=== PATIENT | male | born 1960 | race Caucasian/White ===

== ENCOUNTER → 2019-11-14 14:57 | Outpatient (BNVA) | payer MEDICAID, SELFPAY | PROVIDERS: Family Provider Family Medicine; PCP Family Medicine; Visit Provider Orthopaedic Surgery | DX: M25.512 Pain in left shoulder (principal); M19.012 Primary osteoarthritis, left shoulder | CPT/HCPCS: 73030 ==

== ENCOUNTER → 2020-04-01 12:46 | Outpatient (BNVA) | payer MEDICAID, SELFPAY | PROVIDERS: Family Provider Family Medicine; PCP Family Medicine; Visit Provider Internal Medicine | DX: E03.9 Hypothyroidism, unspecified (principal); E10.9 Type 1 diabetes mellitus without complications; E16.0 Drug-induced hypoglycemia without coma; T38.3X5A Adverse effect of insulin and oral hypoglycemic [antidiabetic] drugs, initial encounter; E66.01 Morbid (severe) obesity due to excess calories; Z68.41 Body mass index [BMI] 40.0-44.9, adult; E78.2 Mixed hyperlipidemia; I10 Essential (primary) hypertension | CPT/HCPCS: 99204 ==

== ENCOUNTER → 2020-08-20 11:42 | Outpatient (BNVA) | payer MEDICAID, SELFPAY | PROVIDERS: Family Provider Family Medicine; PCP Family Medicine; Visit Provider Podiatrist Foot & Ankle Surgery | DX: M25.572 Pain in left ankle and joints of left foot (principal); E11.621 Type 2 diabetes mellitus with foot ulcer; L97.522 Non-pressure chronic ulcer of other part of left foot with fat layer exposed; E11.42 Type 2 diabetes mellitus with diabetic polyneuropathy | CPT/HCPCS: 73630 ==

== ENCOUNTER 2020-08-27 09:42 | Outpatient (CLI) | payer MEDICAID, SELFPAY | END 2020-08-27 09:43 | disposition home or self-care (01) | LOC: WOUND 09:45 | PROVIDERS: Family Provider Family Medicine; PCP Family Medicine; Visit Provider Thoracic Surgery (Cardiothoracic Vascular Surgery) | DX: E11.622 Type 2 diabetes mellitus with other skin ulcer (principal); L97.811 Non-pressure chronic ulcer of other part of right lower leg limited to breakdown of skin; E11.621 Type 2 diabetes mellitus with foot ulcer; L97.522 Non-pressure chronic ulcer of other part of left foot with fat layer exposed | CPT/HCPCS: 11042; 97597; 99203 ==

== ENCOUNTER 2020-08-30 15:10 | Outpatient (CLI) | payer MEDICAID, SELFPAY | END 2020-08-30 15:11 | disposition home or self-care (01) | LOC: WOUND 15:11 | PROVIDERS: Family Provider Family Medicine; PCP Family Medicine; Visit Provider Nurse Practitioner Family | DX: E11.622 Type 2 diabetes mellitus with other skin ulcer (principal); L97.819 Non-pressure chronic ulcer of other part of right lower leg with unspecified severity | CPT/HCPCS: 29581 ==

== ENCOUNTER 2020-09-03 10:23 | Outpatient (CLI) | payer MEDICAID, SELFPAY | END 2020-09-03 10:24 | disposition home or self-care (01) | LOC: WOUND 10:23 | PROVIDERS: Family Provider Family Medicine; PCP Family Medicine; Visit Provider Thoracic Surgery (Cardiothoracic Vascular Surgery) | DX: E11.622 Type 2 diabetes mellitus with other skin ulcer (principal); L97.812 Non-pressure chronic ulcer of other part of right lower leg with fat layer exposed; E11.621 Type 2 diabetes mellitus with foot ulcer; L97.522 Non-pressure chronic ulcer of other part of left foot with fat layer exposed | CPT/HCPCS: 11042 ==

== ENCOUNTER 2020-09-13 10:19 | Outpatient (CLI) | payer MEDICAID, SELFPAY | END 2020-09-13 10:20 | disposition home or self-care (01) | LOC: WOUND 10:25 | PROVIDERS: Family Provider Family Medicine; PCP Family Medicine; Visit Provider Surgery | DX: E11.622 Type 2 diabetes mellitus with other skin ulcer (principal); L97.812 Non-pressure chronic ulcer of other part of right lower leg with fat layer exposed; E11.621 Type 2 diabetes mellitus with foot ulcer; L97.522 Non-pressure chronic ulcer of other part of left foot with fat layer exposed | CPT/HCPCS: 11042 ==

== ENCOUNTER 2020-09-17 13:41 | Outpatient (CLI) | payer MEDICAID, SELFPAY | END 2020-09-17 13:42 | disposition home or self-care (01) | LOC: WOUND 13:42 | PROVIDERS: Family Provider Family Medicine; PCP Family Medicine; Visit Provider Thoracic Surgery (Cardiothoracic Vascular Surgery) | DX: E11.622 Type 2 diabetes mellitus with other skin ulcer (principal); L97.812 Non-pressure chronic ulcer of other part of right lower leg with fat layer exposed; E11.621 Type 2 diabetes mellitus with foot ulcer; L97.521 Non-pressure chronic ulcer of other part of left foot limited to breakdown of skin | CPT/HCPCS: 11042; 97597 ==

== ENCOUNTER 2020-09-24 10:38 | Outpatient (CLI) | payer MEDICAID, SELFPAY | END 2020-09-24 10:39 | disposition home or self-care (01) | LOC: WOUND 10:39 | PROVIDERS: Family Provider Family Medicine; PCP Family Medicine; Visit Provider Nurse Practitioner Family | DX: E11.622 Type 2 diabetes mellitus with other skin ulcer (principal); L97.812 Non-pressure chronic ulcer of other part of right lower leg with fat layer exposed; E11.621 Type 2 diabetes mellitus with foot ulcer; L97.522 Non-pressure chronic ulcer of other part of left foot with fat layer exposed | CPT/HCPCS: 11042 ==

== ENCOUNTER 2020-10-01 10:03 | Outpatient (CLI) | payer MEDICAID, SELFPAY | END 2020-10-01 10:04 | disposition home or self-care (01) | LOC: WOUND 10:04 | PROVIDERS: Family Provider Family Medicine; PCP Family Medicine; Visit Provider Thoracic Surgery (Cardiothoracic Vascular Surgery) | DX: E11.622 Type 2 diabetes mellitus with other skin ulcer (principal); L97.811 Non-pressure chronic ulcer of other part of right lower leg limited to breakdown of skin | CPT/HCPCS: 97597 ==

== ENCOUNTER 2020-10-08 09:08 | Outpatient (CLI) | payer MEDICAID, SELFPAY | END 2020-10-08 09:09 | disposition home or self-care (01) | LOC: WOUND 09:08 | PROVIDERS: Family Provider Family Medicine; PCP Family Medicine; Visit Provider Emergency Medicine | DX: E11.622 Type 2 diabetes mellitus with other skin ulcer (principal); L97.812 Non-pressure chronic ulcer of other part of right lower leg with fat layer exposed | CPT/HCPCS: 11042 ==

== ENCOUNTER 2020-10-15 09:37 | Outpatient (CLI) | payer MEDICAID, SELFPAY | END 2020-10-15 09:38 | disposition home or self-care (01) | LOC: WOUND 09:38 | PROVIDERS: Family Provider Family Medicine; PCP Family Medicine; Visit Provider Thoracic Surgery (Cardiothoracic Vascular Surgery) | DX: E11.622 Type 2 diabetes mellitus with other skin ulcer (principal); L97.811 Non-pressure chronic ulcer of other part of right lower leg limited to breakdown of skin | CPT/HCPCS: 97597 ==

== ENCOUNTER 2020-10-22 08:45 | Outpatient (CLI) | payer MEDICAID, SELFPAY | END 2020-10-22 08:46 | disposition home or self-care (01) | LOC: WOUND 08:46 | PROVIDERS: Family Provider Family Medicine; PCP Family Medicine; Visit Provider Nurse Practitioner Family | DX: I96 Gangrene, not elsewhere classified (principal); E11.622 Type 2 diabetes mellitus with other skin ulcer; L97.812 Non-pressure chronic ulcer of other part of right lower leg with fat layer exposed | CPT/HCPCS: 11042 ==

== ENCOUNTER 2020-10-29 08:42 | Outpatient (CLI) | payer MEDICAID, SELFPAY | END 2020-10-29 08:43 | disposition home or self-care (01) | LOC: WOUND 08:42 | PROVIDERS: Family Provider Family Medicine; PCP Family Medicine; Visit Provider Thoracic Surgery (Cardiothoracic Vascular Surgery) | DX: I96 Gangrene, not elsewhere classified (principal); E11.622 Type 2 diabetes mellitus with other skin ulcer; L97.211 Non-pressure chronic ulcer of right calf limited to breakdown of skin | CPT/HCPCS: 97597 ==

== ENCOUNTER 2020-11-05 09:36 | Outpatient (CLI) | payer MEDICAID, SELFPAY | END 2020-11-05 09:37 | disposition home or self-care (01) | LOC: WOUND 09:37 | PROVIDERS: Family Provider Family Medicine; PCP Family Medicine; Visit Provider Emergency Medicine | DX: E11.622 Type 2 diabetes mellitus with other skin ulcer (principal); L97.812 Non-pressure chronic ulcer of other part of right lower leg with fat layer exposed | CPT/HCPCS: 11042; 87070; 87077; 87176; 87186; 87205; G0463 ==

== ENCOUNTER 2020-11-12 10:04 | Outpatient (CLI) | payer MEDICAID, SELFPAY | END 2020-11-12 10:05 | disposition home or self-care (01) | LOC: WOUND 10:04 | PROVIDERS: Family Provider Family Medicine; PCP Family Medicine; Visit Provider Thoracic Surgery (Cardiothoracic Vascular Surgery) | DX: E11.622 Type 2 diabetes mellitus with other skin ulcer (principal); L97.811 Non-pressure chronic ulcer of other part of right lower leg limited to breakdown of skin | CPT/HCPCS: 97597; 97598 ==

== ENCOUNTER 2020-11-15 14:25 | Outpatient (CLI) | payer MEDICAID, SELFPAY ==
[2020-11-15 15:22] LABS: Blood Urea Nitrogen 11 mg/dL (6-20); Calcium 9.1 mg/dL (8.5-10.5); Carbon Dioxide 27 mmol/L (22-29); Chloride 99 mmol/L (98-107); Glomerular Filtration Rate 86.4 mL/min (90-130); Glucose 217 mg/dL (65-115); Osmolality Calculated 292 mOsm/kg (285-295); Sodium 138 mmol/L (136-145)
== END 2020-11-15 14:26 | disposition home or self-care (01) ==
LOC: LAB 14:29
PROVIDERS: PCP Family Medicine; Visit Provider Emergency Medicine
DX: E11.622 Type 2 diabetes mellitus with other skin ulcer (principal)
CPT/HCPCS: 80048

== ENCOUNTER 2020-11-19 09:40 | Outpatient (CLI) | payer MEDICAID, SELFPAY | END 2020-11-19 09:41 | disposition home or self-care (01) | LOC: WOUND 09:42 | PROVIDERS: PCP Family Medicine; Visit Provider Thoracic Surgery (Cardiothoracic Vascular Surgery) | DX: E11.622 Type 2 diabetes mellitus with other skin ulcer (principal); L97.811 Non-pressure chronic ulcer of other part of right lower leg limited to breakdown of skin | CPT/HCPCS: 97597; 97598 ==

== ENCOUNTER 2020-11-21 14:54 | Outpatient (CLI) | payer MEDICAID, SELFPAY ==
[2020-11-21 16:07] LABS: Anion Gap 16.9 (5-19); Blood Urea Nitrogen 10 mg/dL (6-20); Calcium 8.9 mg/dL (8.5-10.5); Carbon Dioxide 26 mmol/L (22-29); Chloride 99 mmol/L (98-107); Glomerular Filtration Rate 76.5 mL/min (90-130); Glucose 101 mg/dL (65-115); Osmolality Calculated 285 mOsm/kg (285-295); Potassium 3.9 mmol/L (3.5-5.1); Sodium 138 mmol/L (136-145)
== END 2020-11-21 14:55 | disposition home or self-care (01) ==
LOC: LAB 14:58
PROVIDERS: PCP Family Medicine; Visit Provider Emergency Medicine
DX: E11.622 Type 2 diabetes mellitus with other skin ulcer (principal)
CPT/HCPCS: 36415; 80048

== ENCOUNTER 2020-11-26 10:10 | Outpatient (CLI) | payer MEDICAID, SELFPAY | END 2020-11-26 10:11 | disposition home or self-care (01) | LOC: WOUND 10:10 | PROVIDERS: PCP Family Medicine; Visit Provider Thoracic Surgery (Cardiothoracic Vascular Surgery) | DX: E11.622 Type 2 diabetes mellitus with other skin ulcer (principal); L97.811 Non-pressure chronic ulcer of other part of right lower leg limited to breakdown of skin | CPT/HCPCS: 97597 ==

== ENCOUNTER 2020-12-03 09:38 | Outpatient (CLI) | payer MEDICAID, SELFPAY | END 2020-12-03 09:39 | disposition home or self-care (01) | LOC: WOUND 09:39 | PROVIDERS: PCP Family Medicine; Visit Provider Thoracic Surgery (Cardiothoracic Vascular Surgery) | DX: E11.622 Type 2 diabetes mellitus with other skin ulcer (principal); L97.812 Non-pressure chronic ulcer of other part of right lower leg with fat layer exposed | CPT/HCPCS: 11042 ==

== ENCOUNTER 2020-12-10 10:06 | Outpatient (CLI) | payer MEDICAID, SELFPAY | END 2020-12-10 10:07 | disposition home or self-care (01) | LOC: WOUND 10:07 | PROVIDERS: PCP Family Medicine; Visit Provider Thoracic Surgery (Cardiothoracic Vascular Surgery) | DX: E10.622 Type 1 diabetes mellitus with other skin ulcer (principal); L97.812 Non-pressure chronic ulcer of other part of right lower leg with fat layer exposed | CPT/HCPCS: 15271; A6250; Q4110 ==

== ENCOUNTER 2020-12-13 12:24 | Outpatient (CLI) | payer MEDICAID, SELFPAY ==
--- NOTE | 2020-12-13 12:28 | USCV_ITS ---
Case Morin Age: 60 Gender: M : 1960 Exam Date: 12/13/2020 13:07 Ordering Phys: Raul Ellington MD (Andy) ([email or web address]) Technologist: Karissa Lloyd Exam Location: [facility] – [place], [place] Indication: FOOT ULCER, TYPE 1 DM Risk Factors: Previous Vascular Surgery: RIGHT LEFT BP: / BP: 120.0/ 0 Waveform Velocity (cm/s) Velocity (cm/s) Waveform Triphasic 126.3 Iliac Prox 81.5 Triphasic Triphasic 166.6 Iliac Mid 109.5 Triphasic Triphasic 197.3 Iliac Distal 107.8 Triphasic Triphasic 123.4 MVA REACTOR OPERATOR HEAD 167.5 Triphasic Triphasic 143.3 SFA Prox 126.2 Triphasic Biphasic 161.7 SFA Mid 152.5 Triphasic Biphasic 173.5 SFA Dist 133.0 Triphasic Triphasic 55.9 POP 113.4 Biphasic AGRONOMY SPECIALIST 93.7 Biphasic DPA 54.9 Biphasic LAZARO 1.2 FINDINGS Unable to image right lover leg due to open wound and bandage TDS due to large body habitus Normal resting LAZARO on the left side of 1.2 Multiphasic Doppler waveforms bilaterally CONCLUSIONS Normal resting LAZARO on the left side The infrapopliteal vessels on the right side were not examined LAZARO on the right side could not be obtained because of the open wound Multiphasic waveforms suggesting no significant arterial obstruction bilaterally Dr Eleno Islas MD FAC (Electronically Signed) Final Date: 13 December 2020 15:28 S
== END 2020-12-13 12:25 | disposition home or self-care (01) ==
LOC: RAD 12:25
PROVIDERS: PCP Family Medicine; Visit Provider Thoracic Surgery (Cardiothoracic Vascular Surgery)
DX: E10.621 Type 1 diabetes mellitus with foot ulcer (principal)
CPT/HCPCS: 93925

== ENCOUNTER 2020-12-13 13:34 | Outpatient (CLI) | payer MEDICAID, SELFPAY | END 2020-12-13 13:35 | disposition home or self-care (01) | LOC: WOUND 13:35 | PROVIDERS: PCP Family Medicine; Visit Provider Nurse Practitioner Family | DX: E11.622 Type 2 diabetes mellitus with other skin ulcer (principal); L97.812 Non-pressure chronic ulcer of other part of right lower leg with fat layer exposed | CPT/HCPCS: 29581; A6252 ==

== ENCOUNTER 2020-12-16 15:10 | Outpatient (CLI) | payer MEDICAID, SELFPAY ==
--- NOTE | 2020-12-16 15:14 | USCV_ITS ---
Case Morin Age: 60 Gender: M : 1960 Exam Date: 12/16/2020 15:31 Ordering Phys: Raul Ellington MD (Andy) ([email or web address]) Technologist: Karissa lLoyd Exam Location: [facility] – [place] Indication: HISTORY: Lower extremity swelling. Lower extremity pain. PROCEDURES: Bilateral duplex Venous Insufficiency study of the Deep and Superficial systems was carried out according to normal protocol with the patient in supine positon for deep system and dependent position for the superficial system. An evaluation for venous insufficiency was also completed. FINDINGS: No significant venous reflux were noted in the deep veins. Significant reflux of greater than 500 ms were noted in the saphenofemoral junction, proximal and mid greater saphenous vein segments on the left side CONCLUSIONS 1. No evidence of any deep vein thrombosis bilaterally. 2. Significant venous reflux of greater than 500 ms were noted at the left saphenofemoral junction, proximal and mid greater saphenous vein segments. The venous segments where measuring 0.53, 0.61 and 0.22 cm at these levels. The segments were greater than 1 cm deep from the surface. No other significant reflux on the left side. 3. On the right side, significant venous reflux of greater than 500 ms was noted at the saphenofemoral junction. [id number] Dr Eleno Islas MD [facility] (Electronically Signed) Final Date: 17 December 2020 18:43 S
== END 2020-12-16 15:11 | disposition home or self-care (01) ==
LOC: RAD 15:13
PROVIDERS: PCP Family Medicine; Visit Provider Thoracic Surgery (Cardiothoracic Vascular Surgery)
DX: E11.621 Type 2 diabetes mellitus with foot ulcer (principal); M79.89 Other specified soft tissue disorders; M79.604 Pain in right leg; M79.605 Pain in left leg; I87.2 Venous insufficiency (chronic) (peripheral)
CPT/HCPCS: 93970

== ENCOUNTER 2020-12-17 09:15 | Outpatient (CLI) | payer MEDICAID, SELFPAY | END 2020-12-17 09:16 | disposition home or self-care (01) | LOC: WOUND 09:16 | PROVIDERS: PCP Family Medicine; Visit Provider Thoracic Surgery (Cardiothoracic Vascular Surgery) | DX: E10.622 Type 1 diabetes mellitus with other skin ulcer (principal); L97.812 Non-pressure chronic ulcer of other part of right lower leg with fat layer exposed | CPT/HCPCS: 11042 ==

== ENCOUNTER 2020-12-20 13:05 | Outpatient (CLI) | payer MEDICAID, SELFPAY | END 2020-12-20 13:06 | disposition home or self-care (01) | LOC: WOUND 13:05 | PROVIDERS: PCP Family Medicine; Visit Provider Surgery | DX: E11.622 Type 2 diabetes mellitus with other skin ulcer (principal); L97.812 Non-pressure chronic ulcer of other part of right lower leg with fat layer exposed | CPT/HCPCS: 29581 ==

== ENCOUNTER 2020-12-24 09:30 | Outpatient (CLI) | payer MEDICAID, SELFPAY | END 2020-12-24 09:31 | disposition home or self-care (01) | LOC: WOUND 09:30 | PROVIDERS: PCP Family Medicine; Visit Provider Thoracic Surgery (Cardiothoracic Vascular Surgery) | DX: E11.622 Type 2 diabetes mellitus with other skin ulcer (principal); L97.812 Non-pressure chronic ulcer of other part of right lower leg with fat layer exposed | CPT/HCPCS: 11042; A6252 ==

== ENCOUNTER 2020-12-27 14:45 | Outpatient (CLI) | payer MEDICAID, SELFPAY | END 2020-12-27 14:46 | disposition home or self-care (01) | LOC: WOUND 14:45 | PROVIDERS: PCP Family Medicine; Visit Provider Surgery | DX: E11.622 Type 2 diabetes mellitus with other skin ulcer (principal); L97.812 Non-pressure chronic ulcer of other part of right lower leg with fat layer exposed | CPT/HCPCS: 29581; A6252 ==

== ENCOUNTER 2020-12-31 09:26 | Outpatient (CLI) | payer MEDICAID, SELFPAY | END 2020-12-31 09:27 | disposition home or self-care (01) | LOC: WOUND 09:27 | PROVIDERS: PCP Family Medicine; Visit Provider Thoracic Surgery (Cardiothoracic Vascular Surgery) | DX: E10.622 Type 1 diabetes mellitus with other skin ulcer (principal); L97.812 Non-pressure chronic ulcer of other part of right lower leg with fat layer exposed; I10 Essential (primary) hypertension | CPT/HCPCS: 11042 ==

== ENCOUNTER 2021-01-03 14:34 | Outpatient (CLI) | payer MEDICAID, SELFPAY | END 2021-01-03 14:35 | disposition home or self-care (01) | LOC: WOUND 14:35 | PROVIDERS: PCP Family Medicine; Visit Provider Surgery | DX: E11.622 Type 2 diabetes mellitus with other skin ulcer (principal); L97.812 Non-pressure chronic ulcer of other part of right lower leg with fat layer exposed | CPT/HCPCS: 29581; A6252 ==

== ENCOUNTER 2021-01-07 08:50 | Outpatient (CLI) | payer MEDICAID, SELFPAY | END 2021-01-07 08:51 | disposition home or self-care (01) | LOC: WOUND 08:51 | PROVIDERS: PCP Family Medicine; Visit Provider Nurse Practitioner Family | DX: E11.622 Type 2 diabetes mellitus with other skin ulcer (principal); L97.812 Non-pressure chronic ulcer of other part of right lower leg with fat layer exposed | CPT/HCPCS: 11042; 87070; 87077; 87176; 87186; 87205; A6252 ==

== ENCOUNTER 2021-01-10 09:35 | Outpatient (CLI) | payer MEDICAID, SELFPAY | END 2021-01-10 09:36 | disposition home or self-care (01) | LOC: WOUND 09:35 | PROVIDERS: PCP Family Medicine; Visit Provider Nurse Practitioner Family | DX: E11.622 Type 2 diabetes mellitus with other skin ulcer (principal); L97.812 Non-pressure chronic ulcer of other part of right lower leg with fat layer exposed | CPT/HCPCS: 29581; A6252 ==

== ENCOUNTER 2021-01-14 08:54 | Outpatient (CLI) | payer MEDICAID, SELFPAY | END 2021-01-14 08:55 | disposition home or self-care (01) | LOC: WOUND 08:55 | PROVIDERS: PCP Family Medicine; Visit Provider Emergency Medicine | DX: E10.622 Type 1 diabetes mellitus with other skin ulcer (principal); L97.812 Non-pressure chronic ulcer of other part of right lower leg with fat layer exposed; I10 Essential (primary) hypertension | CPT/HCPCS: 11042; A6252 ==

== ENCOUNTER → 2021-01-16 14:08 | Outpatient (BNVA) | payer MEDICAID, SELFPAY | PROVIDERS: PCP Family Medicine; Visit Provider Internal Medicine | DX: E10.9 Type 1 diabetes mellitus without complications (principal); E16.0 Drug-induced hypoglycemia without coma; T38.3X5A Adverse effect of insulin and oral hypoglycemic [antidiabetic] drugs, initial encounter; E03.9 Hypothyroidism, unspecified; E78.2 Mixed hyperlipidemia; E66.01 Morbid (severe) obesity due to excess calories; Z68.41 Body mass index [BMI] 40.0-44.9, adult; Z79.4 Long term (current) use of insulin | CPT/HCPCS: 99214 ==

== ENCOUNTER 2021-01-17 14:04 | Outpatient (CLI) | payer MEDICAID, SELFPAY | END 2021-01-17 14:05 | disposition home or self-care (01) | LOC: WOUND 14:04 | PROVIDERS: PCP Family Medicine; Visit Provider Surgery | DX: E11.622 Type 2 diabetes mellitus with other skin ulcer (principal); L97.812 Non-pressure chronic ulcer of other part of right lower leg with fat layer exposed | CPT/HCPCS: 29581; A6252 ==

== ENCOUNTER 2021-01-21 08:50 | Outpatient (CLI) | payer MEDICAID, SELFPAY | END 2021-01-21 08:51 | disposition home or self-care (01) | LOC: WOUND 08:51 | PROVIDERS: PCP Family Medicine; Visit Provider Nurse Practitioner Family | DX: E11.622 Type 2 diabetes mellitus with other skin ulcer (principal); L97.812 Non-pressure chronic ulcer of other part of right lower leg with fat layer exposed; I10 Essential (primary) hypertension | CPT/HCPCS: 11042; A6252 ==

== ENCOUNTER 2021-01-28 09:16 | Outpatient (CLI) | payer MEDICAID, SELFPAY | END 2021-01-28 09:17 | disposition home or self-care (01) | LOC: WOUND 09:16 | PROVIDERS: PCP Family Medicine; Visit Provider Nurse Practitioner Family | DX: E10.622 Type 1 diabetes mellitus with other skin ulcer (principal); L97.812 Non-pressure chronic ulcer of other part of right lower leg with fat layer exposed; I10 Essential (primary) hypertension | CPT/HCPCS: 11042 ==

== ENCOUNTER 2021-02-04 10:52 | Outpatient (CLI) | payer MEDICAID, SELFPAY | END 2021-02-04 10:53 | disposition home or self-care (01) | LOC: WOUND 10:54 | PROVIDERS: PCP Family Medicine; Visit Provider Thoracic Surgery (Cardiothoracic Vascular Surgery) | DX: E10.622 Type 1 diabetes mellitus with other skin ulcer (principal); L97.811 Non-pressure chronic ulcer of other part of right lower leg limited to breakdown of skin | CPT/HCPCS: 97597 ==

== ENCOUNTER 2021-02-11 13:36 | Outpatient (CLI) | payer MEDICAID, SELFPAY | END 2021-02-11 13:37 | disposition home or self-care (01) | LOC: WOUND 13:39 | PROVIDERS: PCP Family Medicine; Visit Provider Thoracic Surgery (Cardiothoracic Vascular Surgery) | DX: E11.622 Type 2 diabetes mellitus with other skin ulcer (principal); L97.812 Non-pressure chronic ulcer of other part of right lower leg with fat layer exposed; I10 Essential (primary) hypertension | CPT/HCPCS: 11042; A6252 ==

== ENCOUNTER 2021-02-18 13:48 | Outpatient (CLI) | payer MEDICAID, SELFPAY | END 2021-02-18 13:49 | disposition home or self-care (01) | LOC: WOUND 13:49 | PROVIDERS: PCP Family Medicine; Visit Provider Nurse Practitioner Family | DX: E10.622 Type 1 diabetes mellitus with other skin ulcer (principal); L97.812 Non-pressure chronic ulcer of other part of right lower leg with fat layer exposed; I10 Essential (primary) hypertension | CPT/HCPCS: 11042; A6251 ==

== ENCOUNTER 2021-02-25 13:48 | Outpatient (CLI) | payer MEDICAID, SELFPAY | END 2021-02-25 13:49 | disposition home or self-care (01) | LOC: WOUND 13:48 | PROVIDERS: PCP Family Medicine; Visit Provider Nurse Practitioner Family | DX: I96 Gangrene, not elsewhere classified (principal); E10.622 Type 1 diabetes mellitus with other skin ulcer; L97.812 Non-pressure chronic ulcer of other part of right lower leg with fat layer exposed; I10 Essential (primary) hypertension | CPT/HCPCS: 11042 ==

== ENCOUNTER 2021-03-03 15:22 | Outpatient (CLI) | payer MEDICAID, SELFPAY | END 2021-03-03 15:23 | disposition home or self-care (01) | LOC: WOUND 15:26 | PROVIDERS: PCP Family Medicine; Visit Provider Thoracic Surgery (Cardiothoracic Vascular Surgery) | DX: I96 Gangrene, not elsewhere classified (principal); E10.622 Type 1 diabetes mellitus with other skin ulcer; L97.811 Non-pressure chronic ulcer of other part of right lower leg limited to breakdown of skin | CPT/HCPCS: 97597 ==

== ENCOUNTER 2021-03-10 14:09 | Outpatient (CLI) | payer MEDICAID, SELFPAY | END 2021-03-10 14:10 | disposition home or self-care (01) | LOC: WOUND 14:09 | PROVIDERS: PCP Family Medicine; Visit Provider Thoracic Surgery (Cardiothoracic Vascular Surgery) | DX: I96 Gangrene, not elsewhere classified (principal); E10.622 Type 1 diabetes mellitus with other skin ulcer; L97.811 Non-pressure chronic ulcer of other part of right lower leg limited to breakdown of skin | CPT/HCPCS: 11042; 97597 ==

== ENCOUNTER 2021-03-24 13:51 | Outpatient (CLI) | payer MEDICAID, SELFPAY | END 2021-03-24 13:52 | disposition home or self-care (01) | LOC: WOUND 13:52 | PROVIDERS: PCP Family Medicine; Visit Provider Thoracic Surgery (Cardiothoracic Vascular Surgery) | DX: I96 Gangrene, not elsewhere classified (principal); E10.622 Type 1 diabetes mellitus with other skin ulcer; L97.811 Non-pressure chronic ulcer of other part of right lower leg limited to breakdown of skin | CPT/HCPCS: 97597; A6021 ==

== ENCOUNTER 2021-03-31 14:40 | Outpatient (CLI) | payer MEDICAID, SELFPAY | END 2021-03-31 14:41 | disposition home or self-care (01) | LOC: WOUND 14:40 | PROVIDERS: PCP Family Medicine; Visit Provider Nurse Practitioner Family | DX: L97.812 Non-pressure chronic ulcer of other part of right lower leg with fat layer exposed; E10.622 Type 1 diabetes mellitus with other skin ulcer | CPT/HCPCS: 11042 ==

== ENCOUNTER 2021-04-07 15:50 | Outpatient (CLI) | payer MEDICAID, SELFPAY | END 2021-04-07 15:51 | disposition home or self-care (01) | LOC: WOUND 15:50 | PROVIDERS: PCP Family Medicine; Visit Provider Thoracic Surgery (Cardiothoracic Vascular Surgery) | DX: I96 Gangrene, not elsewhere classified (principal); E11.622 Type 2 diabetes mellitus with other skin ulcer; L97.811 Non-pressure chronic ulcer of other part of right lower leg limited to breakdown of skin | CPT/HCPCS: 97597 ==

== ENCOUNTER 2021-04-14 14:38 | Outpatient (CLI) | payer MEDICAID, SELFPAY | END 2021-04-14 14:39 | disposition home or self-care (01) | LOC: WOUND 14:38 | PROVIDERS: PCP Family Medicine; Visit Provider Emergency Medicine | DX: I96 Gangrene, not elsewhere classified (principal); E11.622 Type 2 diabetes mellitus with other skin ulcer; L97.812 Non-pressure chronic ulcer of other part of right lower leg with fat layer exposed | CPT/HCPCS: 11042; A6251 ==

== ENCOUNTER → 2021-04-15 14:12 | Outpatient (BNVA) | payer MEDICAID, SELFPAY | PROVIDERS: PCP Family Medicine; Visit Provider Internal Medicine | DX: E10.9 Type 1 diabetes mellitus without complications (principal); E78.5 Hyperlipidemia, unspecified; E03.9 Hypothyroidism, unspecified; E78.2 Mixed hyperlipidemia; E16.0 Drug-induced hypoglycemia without coma; T38.3X5A Adverse effect of insulin and oral hypoglycemic [antidiabetic] drugs, initial encounter; E66.01 Morbid (severe) obesity due to excess calories; Z68.41 Body mass index [BMI] 40.0-44.9, adult; Z79.4 Long term (current) use of insulin | CPT/HCPCS: 99214 ==

== ENCOUNTER 2021-04-21 15:20 | Outpatient (CLI) | payer MEDICAID, SELFPAY | END 2021-04-21 15:21 | disposition home or self-care (01) | LOC: WOUND 15:21 | PROVIDERS: PCP Family Medicine; Visit Provider Thoracic Surgery (Cardiothoracic Vascular Surgery) | DX: I96 Gangrene, not elsewhere classified (principal); E10.622 Type 1 diabetes mellitus with other skin ulcer; L97.811 Non-pressure chronic ulcer of other part of right lower leg limited to breakdown of skin | CPT/HCPCS: 97597; A6219 ==

== ENCOUNTER 2021-04-28 15:02 | Outpatient (CLI) | payer MEDICAID, SELFPAY | END 2021-04-28 15:03 | disposition home or self-care (01) | LOC: WOUND 15:03 | PROVIDERS: PCP Family Medicine; Visit Provider Thoracic Surgery (Cardiothoracic Vascular Surgery) | DX: E11.622 Type 2 diabetes mellitus with other skin ulcer (principal); L97.811 Non-pressure chronic ulcer of other part of right lower leg limited to breakdown of skin | CPT/HCPCS: 97597 ==

== ENCOUNTER 2021-05-05 14:30 | Outpatient (CLI) | payer MEDICAID, SELFPAY | END 2021-05-05 14:31 | disposition home or self-care (01) | LOC: WOUND 14:31 | PROVIDERS: PCP Family Medicine; Visit Provider Thoracic Surgery (Cardiothoracic Vascular Surgery) | DX: E11.622 Type 2 diabetes mellitus with other skin ulcer (principal); I96 Gangrene, not elsewhere classified; L97.812 Non-pressure chronic ulcer of other part of right lower leg with fat layer exposed | CPT/HCPCS: 15271; A6250; Q4186 ==

== ENCOUNTER 2021-05-12 15:09 | Outpatient (CLI) | payer MEDICAID, SELFPAY | END 2021-05-12 15:10 | disposition home or self-care (01) | LOC: WOUND 15:11 | PROVIDERS: PCP Family Medicine; Visit Provider Thoracic Surgery (Cardiothoracic Vascular Surgery) | DX: E11.622 Type 2 diabetes mellitus with other skin ulcer (principal); L97.812 Non-pressure chronic ulcer of other part of right lower leg with fat layer exposed; I96 Gangrene, not elsewhere classified | CPT/HCPCS: 15271; A6250; A6252; Q4186 ==

== ENCOUNTER 2021-05-19 13:26 | Outpatient (CLI) | payer MEDICAID, SELFPAY | END 2021-05-19 13:27 | disposition home or self-care (01) | LOC: WOUND 13:26 | PROVIDERS: PCP Family Medicine; Visit Provider Thoracic Surgery (Cardiothoracic Vascular Surgery) | DX: E11.622 Type 2 diabetes mellitus with other skin ulcer (principal); I96 Gangrene, not elsewhere classified; L97.812 Non-pressure chronic ulcer of other part of right lower leg with fat layer exposed | CPT/HCPCS: 15271; A6250; A6252; Q4186 ==

== ENCOUNTER → 2021-05-26 15:08 | Outpatient (BNVA) | payer MEDICAID, SELFPAY | PROVIDERS: PCP Family Medicine; Visit Provider Nurse Practitioner Family | DX: E11.622 Type 2 diabetes mellitus with other skin ulcer (principal); I96 Gangrene, not elsewhere classified; L97.822 Non-pressure chronic ulcer of other part of left lower leg with fat layer exposed; L97.812 Non-pressure chronic ulcer of other part of right lower leg with fat layer exposed | CPT/HCPCS: 11042; 15271; Q4186 ==

== ENCOUNTER → 2021-06-02 15:19 | Outpatient (BNVA) | payer MEDICAID, SELFPAY | PROVIDERS: PCP Family Medicine; Visit Provider Thoracic Surgery (Cardiothoracic Vascular Surgery) | DX: E11.622 Type 2 diabetes mellitus with other skin ulcer (principal); I96 Gangrene, not elsewhere classified; L97.812 Non-pressure chronic ulcer of other part of right lower leg with fat layer exposed | CPT/HCPCS: 29581; 99213 ==

== ENCOUNTER → 2021-06-09 10:37 | Outpatient (BNVA) | payer MEDICAID, SELFPAY | PROVIDERS: PCP Family Medicine; Visit Provider Thoracic Surgery (Cardiothoracic Vascular Surgery) | DX: I96 Gangrene, not elsewhere classified; L97.812 Non-pressure chronic ulcer of other part of right lower leg with fat layer exposed; E11.622 Type 2 diabetes mellitus with other skin ulcer | CPT/HCPCS: 15271; 97597; A6250; A6252; Q4186 ==

== ENCOUNTER → 2021-06-16 13:11 | Outpatient (BNVA) | payer MEDICAID, SELFPAY | PROVIDERS: PCP Family Medicine; Visit Provider Thoracic Surgery (Cardiothoracic Vascular Surgery) | DX: E11.622 Type 2 diabetes mellitus with other skin ulcer (principal); I96 Gangrene, not elsewhere classified; L97.812 Non-pressure chronic ulcer of other part of right lower leg with fat layer exposed | CPT/HCPCS: 15271; 97597; A6252; Q4186 ==

== ENCOUNTER → 2021-06-23 10:38 | Outpatient (BNVA) | payer MEDICAID, SELFPAY | PROVIDERS: PCP Family Medicine; Visit Provider Thoracic Surgery (Cardiothoracic Vascular Surgery) | DX: E11.622 Type 2 diabetes mellitus with other skin ulcer (principal); L97.812 Non-pressure chronic ulcer of other part of right lower leg with fat layer exposed; I96 Gangrene, not elsewhere classified | CPT/HCPCS: 15271; 97597; A6250; A6252; Q4186 ==

== ENCOUNTER → 2021-07-03 13:34 | Outpatient (BNVA) | payer MEDICAID, SELFPAY | PROVIDERS: PCP Family Medicine; Visit Provider Nurse Practitioner Family | DX: E11.622 Type 2 diabetes mellitus with other skin ulcer (principal); L97.822 Non-pressure chronic ulcer of other part of left lower leg with fat layer exposed | CPT/HCPCS: 11042 ==

== ENCOUNTER → 2021-07-10 10:38 | Outpatient (BNVA) | payer MEDICAID, SELFPAY | PROVIDERS: PCP Family Medicine; Visit Provider Nurse Practitioner Family | DX: E11.622 Type 2 diabetes mellitus with other skin ulcer (principal); L97.812 Non-pressure chronic ulcer of other part of right lower leg with fat layer exposed; I96 Gangrene, not elsewhere classified | CPT/HCPCS: 11042 ==

== ENCOUNTER → 2021-07-16 14:50 | Outpatient (BNVA) | payer MEDICAID, SELFPAY | PROVIDERS: PCP Family Medicine; Visit Provider Thoracic Surgery (Cardiothoracic Vascular Surgery) | DX: E11.622 Type 2 diabetes mellitus with other skin ulcer (principal); L97.812 Non-pressure chronic ulcer of other part of right lower leg with fat layer exposed; I96 Gangrene, not elsewhere classified | CPT/HCPCS: 97597 ==

== ENCOUNTER → 2021-07-24 09:41 | Outpatient (BNVA) | payer MEDICAID, SELFPAY | PROVIDERS: PCP Family Medicine; Visit Provider Nurse Practitioner Family | DX: E11.622 Type 2 diabetes mellitus with other skin ulcer (principal); L97.812 Non-pressure chronic ulcer of other part of right lower leg with fat layer exposed; I96 Gangrene, not elsewhere classified | CPT/HCPCS: 11042; A6252 ==

== ENCOUNTER → 2021-07-30 14:57 | Outpatient (BNVA) | payer MEDICAID, SELFPAY | PROVIDERS: PCP Family Medicine; Visit Provider Thoracic Surgery (Cardiothoracic Vascular Surgery) | DX: E11.622 Type 2 diabetes mellitus with other skin ulcer (principal); L97.812 Non-pressure chronic ulcer of other part of right lower leg with fat layer exposed; I96 Gangrene, not elsewhere classified | CPT/HCPCS: 97597 ==

== ENCOUNTER → 2021-07-31 14:58 | Outpatient (BNVA) | payer MEDICAID, SELFPAY | PROVIDERS: PCP Family Medicine; Visit Provider Internal Medicine | DX: E10.649 Type 1 diabetes mellitus with hypoglycemia without coma (principal); E16.0 Drug-induced hypoglycemia without coma; E78.2 Mixed hyperlipidemia; E78.5 Hyperlipidemia, unspecified; E03.9 Hypothyroidism, unspecified; T38.3X5A Adverse effect of insulin and oral hypoglycemic [antidiabetic] drugs, initial encounter; E66.01 Morbid (severe) obesity due to excess calories; Z68.41 Body mass index [BMI] 40.0-44.9, adult; Z79.4 Long term (current) use of insulin | CPT/HCPCS: 99214 ==

== ENCOUNTER → 2021-08-06 14:35 | Outpatient (BNVA) | payer MEDICAID, SELFPAY | PROVIDERS: PCP Family Medicine; Visit Provider Nurse Practitioner Family | DX: E11.622 Type 2 diabetes mellitus with other skin ulcer (principal); L97.812 Non-pressure chronic ulcer of other part of right lower leg with fat layer exposed; E03.9 Hypothyroidism, unspecified; I10 Essential (primary) hypertension; J20.9 Acute bronchitis, unspecified | CPT/HCPCS: 29581; 80053; 80061; 84443; 85025; 99213 ==

== ENCOUNTER → 2021-08-13 13:11 | Outpatient (BNVA) | payer MEDICAID, SELFPAY | PROVIDERS: PCP Family Medicine; Visit Provider Nurse Practitioner Family | DX: E11.622 Type 2 diabetes mellitus with other skin ulcer (principal); L97.812 Non-pressure chronic ulcer of other part of right lower leg with fat layer exposed; I96 Gangrene, not elsewhere classified | CPT/HCPCS: 11042 ==

== ENCOUNTER → 2021-08-20 13:10 | Outpatient (BNVA) | payer MEDICAID, SELFPAY | PROVIDERS: PCP Family Medicine; Visit Provider Nurse Practitioner Family | DX: I96 Gangrene, not elsewhere classified (principal); L97.822 Non-pressure chronic ulcer of other part of left lower leg with fat layer exposed | CPT/HCPCS: 11042 ==

== ENCOUNTER → 2021-08-27 15:09 | Outpatient (BNVA) | payer MEDICAID, SELFPAY | PROVIDERS: PCP Family Medicine; Visit Provider Thoracic Surgery (Cardiothoracic Vascular Surgery) | DX: I96 Gangrene, not elsewhere classified (principal); L97.812 Non-pressure chronic ulcer of other part of right lower leg with fat layer exposed; E11.622 Type 2 diabetes mellitus with other skin ulcer; Z09 Encounter for follow-up examination after completed treatment for conditions other than malignant neoplasm | CPT/HCPCS: 29581; 99213 ==

== ENCOUNTER → 2021-09-02 09:06 | Outpatient (BNVA) | payer MEDICAID, SELFPAY | PROVIDERS: PCP Family Medicine; Visit Provider Podiatrist Foot & Ankle Surgery | DX: L60.3 Nail dystrophy (principal); E11.621 Type 2 diabetes mellitus with foot ulcer; E11.42 Type 2 diabetes mellitus with diabetic polyneuropathy; I87.2 Venous insufficiency (chronic) (peripheral); L97.522 Non-pressure chronic ulcer of other part of left foot with fat layer exposed | CPT/HCPCS: 11721 ==

== ENCOUNTER → 2021-09-03 15:39 | Outpatient (BNVA) | payer MEDICAID, SELFPAY | PROVIDERS: PCP Family Medicine; Visit Provider Thoracic Surgery (Cardiothoracic Vascular Surgery) | DX: E11.622 Type 2 diabetes mellitus with other skin ulcer; L97.812 Non-pressure chronic ulcer of other part of right lower leg with fat layer exposed | CPT/HCPCS: 97597 ==

== ENCOUNTER → 2021-09-10 14:30 | Outpatient (BNVA) | payer MEDICAID, SELFPAY | PROVIDERS: PCP Family Medicine; Visit Provider Nurse Practitioner Family | DX: E11.622 Type 2 diabetes mellitus with other skin ulcer (principal); L97.812 Non-pressure chronic ulcer of other part of right lower leg with fat layer exposed; I96 Gangrene, not elsewhere classified | CPT/HCPCS: 29581; 99212 ==

== ENCOUNTER → 2021-09-17 13:09 | Outpatient (BNVA) | payer MEDICAID, SELFPAY | PROVIDERS: PCP Family Medicine; Visit Provider Thoracic Surgery (Cardiothoracic Vascular Surgery) | DX: E11.622 Type 2 diabetes mellitus with other skin ulcer (principal); L97.812 Non-pressure chronic ulcer of other part of right lower leg with fat layer exposed; I96 Gangrene, not elsewhere classified | CPT/HCPCS: 29581; 99212 ==

== ENCOUNTER → 2021-09-24 13:19 | Outpatient (BNVA) | payer MEDICAID, SELFPAY | PROVIDERS: PCP Family Medicine; Visit Provider Nurse Practitioner Family | DX: I96 Gangrene, not elsewhere classified (principal); E11.622 Type 2 diabetes mellitus with other skin ulcer; L97.812 Non-pressure chronic ulcer of other part of right lower leg with fat layer exposed | CPT/HCPCS: 99212 ==

== ENCOUNTER 2021-10-31 16:22 | Outpatient (CLI) | payer MEDICAID, SELFPAY ==
[2021-10-31 17:48] LABS: Creatinine Urine, Random 101 mg/dL (39-259); Microalbum Creatinine Ratio Ur 10 mg/dL (0-20); Microalbumin Random Urine 1 ug/dL (0-20)
[2021-10-31 17:53] LABS: Estmated Average Glucose 217; Hemoglobin A1C 9.2 % (4.0-6.0)
[2021-10-31 17:57] LABS: Alanine Aminotransferase 19 U/L (0-41); Albumin Level 3.8 g/dL (3.5-5.2); Alkaline Phosphatase 187 U/L (40-130); Anion Gap 17.1 (5-19); Aspartate Amino Transferase 32 U/L (0-40); Blood Urea Nitrogen 15 mg/dL (8-23); Calcium 9.2 mg/dL (8.5-10.5); Carbon Dioxide 30 mmol/L (22-29); Chloride 97 mmol/L (98-107); Chol HDL Ratio 2.34 mg/dL (1.0-5.00); Cholesterol 206 mg/dL (0-200); Globulin 2.7 g/dL (1.3-4.6); Glomerular Filtration Rate 98.6 mL/min (90-130); Glucose 245 mg/dL (65-115); HDL Cholesterol 88 mg/dL (60-100); LDL Cholesterol Calculated 95 mg/dL (50-129); LDL HDL Ratio 1.08 RATIO (0.00-3.22); Osmolality Calculated 299 mOsm/kg (285-295); Potassium 4.1 mmol/L (3.5-5.1); Sodium 140 mmol/L (136-145); Thyroid Stimulating Hormone 0.18 uIU/mL (0.27-4.20); Total Bilirubin 0.4 mg/dL (0.15-1.2); Total Protein 6.5 g/dL (6.6-8.7); Triglycerides 114 mg/dL (0-150)
[2021-10-31 20:58] LABS: Free T4 Free Thyroxine 1.67 ng/dL (0.82-1.77)
== END 2021-10-31 16:23 | disposition home or self-care (01) ==
LOC: LAB 16:24
PROVIDERS: PCP Family Medicine; Visit Provider Internal Medicine
DX: E03.9 Hypothyroidism, unspecified (principal); E10.9 Type 1 diabetes mellitus without complications; E78.5 Hyperlipidemia, unspecified
CPT/HCPCS: 80053; 80061; 82044; 83036; 84439; 84443

== ENCOUNTER → 2021-11-06 15:09 | Outpatient (BNVA) | payer MEDICAID, SELFPAY | PROVIDERS: PCP Family Medicine; Visit Provider Internal Medicine | DX: E10.649 Type 1 diabetes mellitus with hypoglycemia without coma (principal); E78.2 Mixed hyperlipidemia; E03.9 Hypothyroidism, unspecified; E16.0 Drug-induced hypoglycemia without coma; T38.3X5A Adverse effect of insulin and oral hypoglycemic [antidiabetic] drugs, initial encounter; E66.01 Morbid (severe) obesity due to excess calories; Z68.41 Body mass index [BMI] 40.0-44.9, adult | CPT/HCPCS: 99214 ==

== ENCOUNTER → 2021-12-03 14:15 | Outpatient (BNVA) | payer MEDICAID, SELFPAY | PROVIDERS: PCP Family Medicine; Visit Provider Internal Medicine | DX: E10.649 Type 1 diabetes mellitus with hypoglycemia without coma (principal); E03.9 Hypothyroidism, unspecified; E78.2 Mixed hyperlipidemia; E16.0 Drug-induced hypoglycemia without coma; T38.3X5A Adverse effect of insulin and oral hypoglycemic [antidiabetic] drugs, initial encounter; E66.01 Morbid (severe) obesity due to excess calories; Z68.41 Body mass index [BMI] 40.0-44.9, adult; Z79.4 Long term (current) use of insulin | CPT/HCPCS: 99214 ==

== ENCOUNTER → 2021-12-30 13:47 | Outpatient (BNVA) | payer MEDICAID, SELFPAY | PROVIDERS: PCP Family Medicine; Visit Provider Podiatrist Foot & Ankle Surgery | DX: Z79.4 Long term (current) use of insulin (principal); E11.42 Type 2 diabetes mellitus with diabetic polyneuropathy; I87.2 Venous insufficiency (chronic) (peripheral) | CPT/HCPCS: 11721 ==

== ENCOUNTER 2022-02-03 09:16 | Outpatient (CLI) | payer MEDICAID, SELFPAY ==
--- NOTE | 2022-02-03 09:23 | XR_ITS ---
WS: [id number] EXAMINATION: XR chest 2V* [id number] REASON FOR EXAM: cough COMPARISON: None available. ORDER DATE: 02/03/2022 9:23 AM FINDINGS: There is a very subtle increased density in the right middle lobe on the lateral projection consiste nt with an early right middle lobe infiltrate. The cardiac and mediastinal outlines are unremarkable . There are no significant pleural effusions . No significant abnormalities are noted in the spine or remainder of the bony thorax. XR/XR chest 2V* [id number] IMPRESSION: SMALL RIGHT MIDDLE LOBE INFILTRATE.
== END 2022-02-03 09:17 | disposition home or self-care (01) ==
LOC: RAD 09:17
PROVIDERS: PCP Family Medicine; Visit Provider Family Medicine
DX: R05.3 Chronic cough (principal); R91.8 Other nonspecific abnormal finding of lung field
CPT/HCPCS: 71046

== ENCOUNTER 2022-03-03 16:45 | Outpatient (CLI) | payer MEDICAID, SELFPAY ==
[2022-03-03 17:52] LABS: Creatinine Urine, Random 165 mg/dL (39-259); Microalbum Creatinine Ratio Ur 6 mg/dL (0-20); Microalbumin Random Urine 1 ug/dL (0-20)
[2022-03-03 20:42] LABS: Estmated Average Glucose 163; Hemoglobin A1C 7.3 % (4.0-6.0)
[2022-03-03 22:58] LABS: Alanine Aminotransferase 21 U/L (0-41); Albumin Level 3.8 g/dL (3.5-5.2); Alkaline Phosphatase 171 U/L (40-130); Anion Gap 16.9 (5-19); Aspartate Amino Transferase 35 U/L (0-40); Blood Urea Nitrogen 12 mg/dL (8-23); Calcium 9.1 mg/dL (8.5-10.5); Carbon Dioxide 30 mmol/L (22-29); Chloride 100 mmol/L (98-107); Chol HDL Ratio 2.01 mg/dL (1.0-5.00); Cholesterol 201 mg/dL (0-200); Free T4 Free Thyroxine 1.32 ng/dL (0.82-1.77); Globulin 2.6 g/dL (1.3-4.6); Glomerular Filtration Rate 98.6 mL/min (90-130); Glucose 168 mg/dL (65-115); HDL Cholesterol 100 mg/dL (60-100); LDL Cholesterol Calculated 82 mg/dL (50-129); LDL HDL Ratio 0.82 RATIO (0.00-3.22); Osmolality Calculated 300 mOsm/kg (285-295); Potassium 3.9 mmol/L (3.5-5.1); Sodium 143 mmol/L (136-145); Thyroid Stimulating Hormone 5.25 uIU/mL (0.27-4.20); Total Bilirubin 0.5 mg/dL (0.15-1.2); Total Protein 6.4 g/dL (6.6-8.7); Triglycerides 96 mg/dL (0-150)
== END 2022-03-03 16:46 | disposition home or self-care (01) ==
LOC: LAB 16:48
PROVIDERS: PCP Family Medicine; Visit Provider Internal Medicine
DX: E03.9 Hypothyroidism, unspecified (principal); E10.9 Type 1 diabetes mellitus without complications
CPT/HCPCS: 80053; 80061; 82044; 83036; 84439; 84443

== ENCOUNTER → 2022-03-05 07:59 | Outpatient (BNVA) | payer MEDICAID, SELFPAY | PROVIDERS: PCP Family Medicine; Visit Provider Internal Medicine | DX: E10.9 Type 1 diabetes mellitus without complications (principal); E03.9 Hypothyroidism, unspecified; E16.0 Drug-induced hypoglycemia without coma; T38.3X5A Adverse effect of insulin and oral hypoglycemic [antidiabetic] drugs, initial encounter; E78.2 Mixed hyperlipidemia; E66.01 Morbid (severe) obesity due to excess calories; Z68.41 Body mass index [BMI] 40.0-44.9, adult; Z79.890 Hormone replacement therapy | CPT/HCPCS: 99214 ==

== ENCOUNTER → 2022-04-14 11:19 | Outpatient (BNVA) | payer MEDICAID, SELFPAY | PROVIDERS: PCP Family Medicine; Visit Provider Podiatrist Foot & Ankle Surgery | DX: E11.8 Type 2 diabetes mellitus with unspecified complications (principal); E11.42 Type 2 diabetes mellitus with diabetic polyneuropathy; I87.2 Venous insufficiency (chronic) (peripheral); Z79.4 Long term (current) use of insulin; L60.2 Onychogryphosis | CPT/HCPCS: 11721 ==

== ENCOUNTER 2022-06-12 16:22 | Outpatient (CLI) | payer MEDICAID, SELFPAY ==
[2022-06-12 17:12] LABS: Estmated Average Glucose 189; Hemoglobin A1C 8.2 % (4.0-6.0)
[2022-06-12 17:19] LABS: Creatinine Urine, Random 28 mg/dL (39-259); Microalbum Creatinine Ratio Ur 36 mg/dL (0-20); Microalbumin Random Urine 1 ug/dL (0-20)
[2022-06-12 17:21] LABS: Alanine Aminotransferase 20 U/L (0-41); Albumin Level 3.5 g/dL (3.5-5.2); Alkaline Phosphatase 197 U/L (40-130); Aspartate Amino Transferase 39 U/L (0-40); Blood Urea Nitrogen 8 mg/dL (8-23); Calcium 8.8 mg/dL (8.5-10.5); Carbon Dioxide 26 mmol/L (22-29); Chloride 98 mmol/L (98-107); Chol HDL Ratio 2.01 mg/dL (1.0-5.00); Cholesterol 209 mg/dL (0-200); Free T4 Free Thyroxine 1.17 ng/dL (0.82-1.77); Glomerular Filtration Rate 85.8 mL/min (90-130); Glucose 258 mg/dL (65-115); HDL Cholesterol 104 mg/dL (60-100); LDL Cholesterol Calculated 90 mg/dL (50-129); LDL HDL Ratio 0.87 RATIO (0.00-3.22); Osmolality Calculated 293 mOsm/kg (285-295); Sodium 138 mmol/L (136-145); Thyroid Stimulating Hormone 9.33 uIU/mL (0.27-4.20); Total Bilirubin 0.5 mg/dL (0.15-1.2); Total Protein 6.5 g/dL (6.6-8.7); Triglycerides 75 mg/dL (0-150)
== END 2022-06-12 16:23 | disposition home or self-care (01) ==
LOC: LAB 16:24
PROVIDERS: PCP Family Medicine; Visit Provider Internal Medicine
DX: E03.9 Hypothyroidism, unspecified (principal); E10.9 Type 1 diabetes mellitus without complications; E16.0 Drug-induced hypoglycemia without coma; E78.2 Mixed hyperlipidemia; T38.3X5A Adverse effect of insulin and oral hypoglycemic [antidiabetic] drugs, initial encounter
CPT/HCPCS: 36415; 80053; 80061; 82044; 83036; 84439; 84443

== ENCOUNTER → 2022-06-16 13:21 | Outpatient (BNVA) | payer MEDICAID, SELFPAY | PROVIDERS: PCP Family Medicine; Visit Provider Internal Medicine | DX: E10.65 Type 1 diabetes mellitus with hyperglycemia (principal); E10.649 Type 1 diabetes mellitus with hypoglycemia without coma; E78.2 Mixed hyperlipidemia; E03.9 Hypothyroidism, unspecified; E16.0 Drug-induced hypoglycemia without coma; T38.3X5A Adverse effect of insulin and oral hypoglycemic [antidiabetic] drugs, initial encounter; E66.01 Morbid (severe) obesity due to excess calories; Z68.41 Body mass index [BMI] 40.0-44.9, adult; Z79.890 Hormone replacement therapy; Z79.4 Long term (current) use of insulin; X58.XXXA Exposure to other specified factors, initial encounter | CPT/HCPCS: 99214 ==

== ENCOUNTER → 2022-07-23 11:11 | Outpatient (BNVA) | payer MEDICAID, SELFPAY | PROVIDERS: PCP Family Medicine; Visit Provider Podiatrist Foot & Ankle Surgery | DX: E11.42 Type 2 diabetes mellitus with diabetic polyneuropathy (principal); L60.3 Nail dystrophy; I87.2 Venous insufficiency (chronic) (peripheral); Z79.4 Long term (current) use of insulin | CPT/HCPCS: 99214 ==

== ENCOUNTER 2022-08-13 15:17 | Outpatient (CLI) | payer MEDICAID, SELFPAY ==
[2022-08-13 16:17] LABS: Free T4 Free Thyroxine 1.34 ng/dL (0.82-1.77); Thyroid Stimulating Hormone 4.96 uIU/mL (0.27-4.20)
[2022-08-15 10:59] LABS: T3 Total 61 ng/dL (76-181)
== END 2022-08-13 15:18 | disposition home or self-care (01) ==
LOC: LAB 15:22
PROVIDERS: PCP Family Medicine; Visit Provider Internal Medicine
DX: E16.0 Drug-induced hypoglycemia without coma (principal); T38.3X5A Adverse effect of insulin and oral hypoglycemic [antidiabetic] drugs, initial encounter
CPT/HCPCS: 84439; 84443; 84480

== ENCOUNTER → 2022-08-17 10:58 | Outpatient (BNVA) | payer MEDICAID, SELFPAY | PROVIDERS: PCP Family Medicine; Visit Provider Internal Medicine | DX: E10.649 Type 1 diabetes mellitus with hypoglycemia without coma (principal); E78.2 Mixed hyperlipidemia; E03.9 Hypothyroidism, unspecified; E16.0 Drug-induced hypoglycemia without coma; T38.3X5A Adverse effect of insulin and oral hypoglycemic [antidiabetic] drugs, initial encounter; E66.01 Morbid (severe) obesity due to excess calories; X58.XXXA Exposure to other specified factors, initial encounter; Z79.4 Long term (current) use of insulin; Z68.43 Body mass index [BMI] 50.0-59.9, adult; Z79.890 Hormone replacement therapy | CPT/HCPCS: 99214 ==

== ENCOUNTER → 2022-09-24 14:22 | Outpatient (BNVA) | payer MEDICAID, SELFPAY | PROVIDERS: PCP Family Medicine; Visit Provider Podiatrist Foot & Ankle Surgery | DX: E11.8 Type 2 diabetes mellitus with unspecified complications (principal); E11.42 Type 2 diabetes mellitus with diabetic polyneuropathy; I87.2 Venous insufficiency (chronic) (peripheral); L60.3 Nail dystrophy; Z79.4 Long term (current) use of insulin | CPT/HCPCS: 11721 ==

== ENCOUNTER 2022-11-16 16:11 | Outpatient (CLI) | payer MEDICAID, SELFPAY ==
[2022-11-16 17:03] LABS: Estmated Average Glucose 163; Hemoglobin A1C 7.3 % (4.0-6.0)
[2022-11-16 17:11] LABS: Creatinine Urine, Random 74 mg/dL (39-259); Microalbum Creatinine Ratio Ur 27 mg/dL (0-20); Microalbumin Random Urine 2 ug/dL (0-20)
[2022-11-16 17:21] LABS: Alanine Aminotransferase 30 U/L (0-41); Albumin Level 3.7 g/dL (3.5-5.2); Alkaline Phosphatase 240 U/L (40-130); Anion Gap 13.8 (5-19); Aspartate Amino Transferase 55 U/L (0-40); Blood Urea Nitrogen 11 mg/dL (8-23); Calcium 8.9 mg/dL (8.5-10.5); Carbon Dioxide 30 mmol/L (22-29); Chloride 96 mmol/L (98-107); Chol HDL Ratio 2.04 mg/dL (1.0-5.00); Cholesterol 198 mg/dL (0-200); Free T4 Free Thyroxine 1.24 ng/dL (0.82-1.77); Globulin 2.9 g/dL (1.3-4.6); Glomerular Filtration Rate 98.3 mL/min (90-130); Glucose 207 mg/dL (65-115); HDL Cholesterol 97 mg/dL (60-100); LDL Cholesterol Calculated 75 mg/dL (50-129); LDL HDL Ratio 0.77 RATIO (0.00-3.22); Osmolality Calculated 287 mOsm/kg (285-295); Potassium 3.8 mmol/L (3.5-5.1); Sodium 136 mmol/L (136-145); Thyroid Stimulating Hormone 2.62 uIU/mL (0.27-4.20); Total Bilirubin 0.3 mg/dL (0.15-1.2); Total Protein 6.6 g/dL (6.6-8.7); Triglycerides 132 mg/dL (0-150)
== END 2022-11-16 16:12 | disposition home or self-care (01) ==
LOC: LAB 16:13
PROVIDERS: PCP Family Medicine; Visit Provider Internal Medicine
DX: E10.9 Type 1 diabetes mellitus without complications (principal); E03.9 Hypothyroidism, unspecified
CPT/HCPCS: 36415; 80053; 80061; 82044; 83036; 84439; 84443

== ENCOUNTER → 2022-11-17 10:55 | Outpatient (BNVA) | payer MEDICAID, SELFPAY | PROVIDERS: PCP Family Medicine; Visit Provider Internal Medicine | DX: E03.9 Hypothyroidism, unspecified; E16.0 Drug-induced hypoglycemia without coma; T38.3X5A Adverse effect of insulin and oral hypoglycemic [antidiabetic] drugs, initial encounter; E66.01 Morbid (severe) obesity due to excess calories; Z68.41 Body mass index [BMI] 40.0-44.9, adult; E78.2 Mixed hyperlipidemia; E10.649 Type 1 diabetes mellitus with hypoglycemia without coma; Z79.890 Hormone replacement therapy; Z79.4 Long term (current) use of insulin | CPT/HCPCS: 99214 ==

== ENCOUNTER → 2022-12-23 15:23 | Outpatient (BNVA) | payer MEDICAID, SELFPAY | PROVIDERS: PCP Family Medicine; Visit Provider Podiatrist Foot & Ankle Surgery | DX: E11.42 Type 2 diabetes mellitus with diabetic polyneuropathy (principal); I87.2 Venous insufficiency (chronic) (peripheral); L60.3 Nail dystrophy; Z79.4 Long term (current) use of insulin | CPT/HCPCS: 11721 ==

== ENCOUNTER 2023-02-17 16:39 | Outpatient (CLI) | payer MEDICAID, SELFPAY ==
[2023-02-17 17:23] LABS: Alanine Aminotransferase 32 U/L (0-41); Albumin Level 3.9 g/dL (3.5-5.2); Alkaline Phosphatase 253 U/L (40-130); Aspartate Amino Transferase 56 U/L (0-40); Blood Urea Nitrogen 9 mg/dL (8-23); Calcium 9.3 mg/dL (8.5-10.5); Carbon Dioxide 31 mmol/L (22-29); Chloride 103 mmol/L (98-107); Cholesterol 218 mg/dL (0-200); Globulin 3.1 g/dL (1.3-4.6); Glomerular Filtration Rate 98.3 mL/min (90-130); Glucose 49 mg/dL (65-115); HDL Cholesterol 128 mg/dL (60-100); LDL Cholesterol Calculated 76 mg/dL (50-129); LDL HDL Ratio 0.59 RATIO (0.00-3.22); Osmolality Calculated 294 mOsm/kg (285-295); Sodium 144 mmol/L (136-145); Total Bilirubin 0.5 mg/dL (0.15-1.2); Triglycerides 72 mg/dL (0-150)
[2023-02-17 17:25] LABS: Creatinine Urine, Random 328 mg/dL (39-259); Microalbum Creatinine Ratio Ur 6 mg/dL (0-20); Microalbumin Random Urine 2 ug/dL (0-20)
[2023-02-17 18:52] LABS: Anion Gap 14.2 (5-19); Potassium 4.2 mmol/L (3.5-5.1)
[2023-02-17 20:16] LABS: Estmated Average Glucose 174; Hemoglobin A1C 7.7 % (4.0-6.0)
== END 2023-02-17 16:40 | disposition home or self-care (01) ==
LOC: LAB 16:43
PROVIDERS: PCP Family Medicine; Visit Provider Internal Medicine
DX: E10.9 Type 1 diabetes mellitus without complications (principal); E78.5 Hyperlipidemia, unspecified; E03.9 Hypothyroidism, unspecified; E16.0 Drug-induced hypoglycemia without coma; T38.3X5A Adverse effect of insulin and oral hypoglycemic [antidiabetic] drugs, initial encounter; E66.01 Morbid (severe) obesity due to excess calories; Z68.41 Body mass index [BMI] 40.0-44.9, adult
CPT/HCPCS: 36415; 80053; 80061; 82044; 83036

== ENCOUNTER → 2023-02-18 10:14 | Outpatient (BNVA) | payer MEDICAID, SELFPAY | PROVIDERS: PCP Family Medicine; Visit Provider Internal Medicine | DX: E78.2 Mixed hyperlipidemia; E03.9 Hypothyroidism, unspecified; E16.0 Drug-induced hypoglycemia without coma; T38.3X5A Adverse effect of insulin and oral hypoglycemic [antidiabetic] drugs, initial encounter; E66.01 Morbid (severe) obesity due to excess calories; Z68.41 Body mass index [BMI] 40.0-44.9, adult; E10.649 Type 1 diabetes mellitus with hypoglycemia without coma; Z79.4 Long term (current) use of insulin; Z79.890 Hormone replacement therapy; X58.XXXA Exposure to other specified factors, initial encounter | CPT/HCPCS: 99214 ==

== ENCOUNTER → 2023-03-17 15:13 | Outpatient (BNVA) | payer MEDICAID, SELFPAY | PROVIDERS: PCP Family Medicine; Referring Provider Family Medicine; Visit Provider Specialist | DX: M25.561 Pain in right knee; M25.562 Pain in left knee; G89.29 Other chronic pain; M19.90 Unspecified osteoarthritis, unspecified site; M17.9 Osteoarthritis of knee, unspecified | CPT/HCPCS: 73560; 73565; 80053; 85025; 85651; 86140; 86160; 86162; 86200; 86235; 86255; 86376; 86431; 99204 ==

== ENCOUNTER → 2023-03-31 14:46 | Outpatient (BNVA) | payer MEDICAID, SELFPAY | PROVIDERS: PCP Family Medicine; Visit Provider Specialist | DX: M17.9 Osteoarthritis of knee, unspecified | CPT/HCPCS: 99213 ==

== ENCOUNTER → 2023-04-14 15:07 | Outpatient (BNVA) | payer MEDICAID, SELFPAY | PROVIDERS: PCP Family Medicine; Visit Provider Podiatrist Foot & Ankle Surgery | DX: E11.42 Type 2 diabetes mellitus with diabetic polyneuropathy (principal); I87.2 Venous insufficiency (chronic) (peripheral); L60.3 Nail dystrophy; Z79.4 Long term (current) use of insulin | CPT/HCPCS: 11721 ==

== ENCOUNTER 2023-05-11 15:35 | Outpatient (CLI) | payer MEDICAID, SELFPAY ==
[2023-05-11 16:37] LABS: Estmated Average Glucose 177; Hemoglobin A1C 7.8 % (4.0-6.0)
[2023-05-11 16:51] LABS: Alanine Aminotransferase 24 U/L (0-41); Albumin Level 3.6 g/dL (3.5-5.2); Alkaline Phosphatase 250 U/L (40-130); Aspartate Amino Transferase 42 U/L (0-40); Blood Urea Nitrogen 12 mg/dL (8-23); Calcium 8.8 mg/dL (8.5-10.5); Carbon Dioxide 24 mmol/L (22-29); Chloride 100 mmol/L (98-107); Cholesterol 194 mg/dL (0-200); Free T4 Free Thyroxine 1.23 ng/dL (0.82-1.77); Globulin 2.3 g/dL (1.3-4.6); Glucose 174 mg/dL (65-115); HDL Cholesterol 102 mg/dL (60-100); LDL Cholesterol Calculated 74 mg/dL (50-129); LDL HDL Ratio 0.73 RATIO (0.00-3.22); Osmolality Calculated 288 mOsm/kg (285-295); Sodium 137 mmol/L (136-145); Thyroid Stimulating Hormone 6.57 uIU/mL (0.27-4.20); Total Bilirubin 0.3 mg/dL (0.15-1.2); Total Protein 5.9 g/dL (6.6-8.7); Triglycerides 88 mg/dL (0-150)
[2023-05-11 16:57] LABS: Anion Gap 17.5 (5-19); Potassium 4.5 mmol/L (3.5-5.1)
[2023-05-11 17:08] LABS: Creatinine Urine, Random 293 mg/dL (39-259); Microalbum Creatinine Ratio Ur 3 mg/dL (0-20); Microalbumin Random Urine 1 ug/dL (0-20)
== END 2023-05-11 15:36 | disposition home or self-care (01) ==
LOC: LAB 15:36
PROVIDERS: PCP Family Medicine; Visit Provider Internal Medicine
DX: E10.9 Type 1 diabetes mellitus without complications (principal); E78.5 Hyperlipidemia, unspecified; E03.9 Hypothyroidism, unspecified
CPT/HCPCS: 36415; 80053; 80061; 82044; 83036; 84439; 84443

== ENCOUNTER → 2023-05-18 11:41 | Outpatient (BNVA) | payer MEDICAID, SELFPAY | PROVIDERS: PCP Family Medicine; Visit Provider Internal Medicine | DX: E10.9 Type 1 diabetes mellitus without complications (principal); E78.2 Mixed hyperlipidemia; E03.9 Hypothyroidism, unspecified; E16.0 Drug-induced hypoglycemia without coma; T38.3X5A Adverse effect of insulin and oral hypoglycemic [antidiabetic] drugs, initial encounter; E66.01 Morbid (severe) obesity due to excess calories; Z68.41 Body mass index [BMI] 40.0-44.9, adult | CPT/HCPCS: 99214 ==

== ENCOUNTER → 2023-07-07 15:20 | Outpatient (BNVA) | payer MEDICAID, SELFPAY | PROVIDERS: PCP Family Medicine; Visit Provider Podiatrist Foot & Ankle Surgery | DX: E11.42 Type 2 diabetes mellitus with diabetic polyneuropathy (principal); I87.2 Venous insufficiency (chronic) (peripheral); L60.3 Nail dystrophy; Z79.4 Long term (current) use of insulin | CPT/HCPCS: 11721 ==

== ENCOUNTER → 2023-08-04 10:53 | Outpatient (BNVA) | payer MEDICAID, SELFPAY | PROVIDERS: PCP Family Medicine; Visit Provider Family Medicine | DX: E10.9 Type 1 diabetes mellitus without complications (principal); E03.9 Hypothyroidism, unspecified; R05.3 Chronic cough; J32.9 Chronic sinusitis, unspecified; E11.9 Type 2 diabetes mellitus without complications; Z79.899 Other long term (current) drug therapy | CPT/HCPCS: 80053; 80061; 83036; 84443; 85025 ==

== ENCOUNTER 2023-09-13 16:27 | Outpatient (CLI) | payer MEDICAID, SELFPAY ==
[2023-09-13 19:37] LABS: Creatinine Urine, Random 220 mg/dL (39-259); Microalbum Creatinine Ratio Ur 5 mg/dL (0-20); Microalbumin Random Urine 1 ug/dL (0-20)
[2023-09-13 22:50] LABS: Alanine Aminotransferase 34 U/L (0-41); Albumin Level 3.3 g/dL (3.5-5.2); Alkaline Phosphatase 284 U/L (40-130); Anion Gap 17.5 (5-19); Aspartate Amino Transferase 60 U/L (0-40); Blood Urea Nitrogen 10 mg/dL (8-23); Calcium 8.7 mg/dL (8.5-10.5); Carbon Dioxide 27 mmol/L (22-29); Chloride 99 mmol/L (98-107); Cholesterol 188 mg/dL (0-200); Free T4 Free Thyroxine 1.38 ng/dL (0.82-1.77); Glomerular Filtration Rate 114.3 mL/min (90-130); Glucose 280 mg/dL (65-115); HDL Cholesterol 99 mg/dL (60-100); LDL Cholesterol Calculated 73 mg/dL (50-129); LDL HDL Ratio 0.74 RATIO (0.00-3.22); Osmolality Calculated 297 mOsm/kg (285-295); Potassium 4.5 mmol/L (3.5-5.1); Sodium 139 mmol/L (136-145); Thyroid Stimulating Hormone 3.31 uIU/mL (0.27-4.20); Total Bilirubin 0.4 mg/dL (0.15-1.2); Total Protein 6.3 g/dL (6.6-8.7); Triglycerides 79 mg/dL (0-150)
[2023-09-13 22:54] LABS: Estmated Average Glucose 186; Hemoglobin A1C 8.1 % (4.0-6.0)
== END 2023-09-13 16:28 | disposition home or self-care (01) ==
PROVIDERS: PCP Family Medicine; Visit Provider Internal Medicine
DX: E10.9 Type 1 diabetes mellitus without complications (principal); E78.2 Mixed hyperlipidemia; E03.9 Hypothyroidism, unspecified; E16.0 Drug-induced hypoglycemia without coma; T38.3X5A Adverse effect of insulin and oral hypoglycemic [antidiabetic] drugs, initial encounter
CPT/HCPCS: 36415; 80053; 80061; 82044; 83036; 84439; 84443

== ENCOUNTER → 2023-09-16 07:55 | Outpatient (BNVA) | payer MEDICAID, SELFPAY | PROVIDERS: PCP Family Medicine; Visit Provider Internal Medicine | DX: E78.2 Mixed hyperlipidemia; E03.9 Hypothyroidism, unspecified; E16.0 Drug-induced hypoglycemia without coma; T38.3X5A Adverse effect of insulin and oral hypoglycemic [antidiabetic] drugs, initial encounter; E66.01 Morbid (severe) obesity due to excess calories; Z68.41 Body mass index [BMI] 40.0-44.9, adult; E10.649 Type 1 diabetes mellitus with hypoglycemia without coma; X58.XXXA Exposure to other specified factors, initial encounter; Z79.4 Long term (current) use of insulin; Z79.890 Hormone replacement therapy | CPT/HCPCS: 99214 ==

== ENCOUNTER → 2023-09-29 15:30 | Outpatient (BNVA) | payer MEDICAID, SELFPAY | PROVIDERS: PCP Family Medicine; Visit Provider Podiatrist Foot & Ankle Surgery | DX: E11.8 Type 2 diabetes mellitus with unspecified complications (principal); E11.42 Type 2 diabetes mellitus with diabetic polyneuropathy; I87.2 Venous insufficiency (chronic) (peripheral); L60.3 Nail dystrophy; Z79.4 Long term (current) use of insulin | CPT/HCPCS: 11721 ==

== ENCOUNTER → 2023-09-30 16:52 | Outpatient (BNVA) | payer MEDICAID, SELFPAY | PROVIDERS: PCP Family Medicine; Visit Provider Registered Nurse Neonatal Intensive Care | DX: R05.9 Cough, unspecified (principal) | CPT/HCPCS: 87426 ==

== ENCOUNTER 2023-12-01 16:43 | Outpatient (CLI) | payer MEDICAID, SELFPAY ==
[2023-12-01 17:35] LABS: Estmated Average Glucose 194; Hemoglobin A1C 8.4 % (4.0-6.0)
[2023-12-01 17:45] LABS: Creatinine Urine, Random 90 mg/dL (39-259); Microalbum Creatinine Ratio Ur 11 mg/dL (0-20); Microalbumin Random Urine 1 ug/dL (0-20)
== END 2023-12-01 16:44 | disposition home or self-care (01) ==
LOC: LAB 16:44
PROVIDERS: PCP Family Medicine; Visit Provider Internal Medicine
DX: E10.9 Type 1 diabetes mellitus without complications (principal); E78.2 Mixed hyperlipidemia; E03.9 Hypothyroidism, unspecified
CPT/HCPCS: 36415; 82044; 83036

== ENCOUNTER 2023-12-02 16:28 | Outpatient (CLI) | payer MEDICAID, SELFPAY ==
[2023-12-02 17:15] LABS: Alanine Aminotransferase 33 U/L (0-41); Albumin Level 3.5 g/dL (3.5-5.2); Alkaline Phosphatase 263 U/L (40-130); Anion Gap 13.5 (5-19); Aspartate Amino Transferase 48 U/L (0-40); Blood Urea Nitrogen 11 mg/dL (8-23); Calcium 8.9 mg/dL (8.5-10.5); Carbon Dioxide 30 mmol/L (22-29); Chloride 99 mmol/L (98-107); Chol HDL Ratio 2.05 mg/dL (1.0-5.00); Cholesterol 195 mg/dL (0-200); Globulin 2.8 g/dL (1.3-4.6); Glucose 287 mg/dL (65-115); HDL Cholesterol 95 mg/dL (60-100); LDL Cholesterol Calculated 85 mg/dL (50-129); LDL HDL Ratio 0.89 RATIO (0.00-3.22); Osmolality Calculated 296 mOsm/kg (285-295); Potassium 4.5 mmol/L (3.5-5.1); Sodium 138 mmol/L (136-145); Thyroid Stimulating Hormone 3.57 uIU/mL (0.27-4.20); Total Bilirubin 0.4 mg/dL (0.15-1.2); Total Protein 6.3 g/dL (6.6-8.7); Triglycerides 77 mg/dL (0-150)
== END 2023-12-02 16:29 | disposition home or self-care (01) ==
LOC: LAB 16:29
PROVIDERS: PCP Family Medicine; Visit Provider Internal Medicine
DX: E10.9 Type 1 diabetes mellitus without complications (principal); E78.2 Mixed hyperlipidemia; E03.9 Hypothyroidism, unspecified
CPT/HCPCS: 36415; 80053; 80061; 84439; 84443

== ENCOUNTER → 2023-12-06 11:40 | Outpatient (BNVA) | payer MEDICAID, SELFPAY | PROVIDERS: PCP Family Medicine; Visit Provider Internal Medicine | DX: E78.2 Mixed hyperlipidemia; E03.9 Hypothyroidism, unspecified; E16.0 Drug-induced hypoglycemia without coma; T38.3X5A Adverse effect of insulin and oral hypoglycemic [antidiabetic] drugs, initial encounter; E66.01 Morbid (severe) obesity due to excess calories; Z68.41 Body mass index [BMI] 40.0-44.9, adult; E10.65 Type 1 diabetes mellitus with hyperglycemia; E10.649 Type 1 diabetes mellitus with hypoglycemia without coma; X58.XXXA Exposure to other specified factors, initial encounter | CPT/HCPCS: 99214 ==

== ENCOUNTER → 2023-12-22 15:28 | Outpatient (BNVA) | payer MEDICAID, SELFPAY | PROVIDERS: PCP Family Medicine; Visit Provider Podiatrist Foot & Ankle Surgery | DX: E11.8 Type 2 diabetes mellitus with unspecified complications (principal); E11.42 Type 2 diabetes mellitus with diabetic polyneuropathy; I87.2 Venous insufficiency (chronic) (peripheral); L60.3 Nail dystrophy; Z79.84 Long term (current) use of oral hypoglycemic drugs | CPT/HCPCS: 11721 ==

== ENCOUNTER 2024-03-02 16:16 | Outpatient (CLI) | payer MEDICAID, SELFPAY ==
[2024-03-02 17:02] LABS: Alanine Aminotransferase 26 U/L (0-41); Albumin Level 3.4 g/dL (3.5-5.2); Alkaline Phosphatase 263 U/L (40-130); Anion Gap 14.4 (5-19); Aspartate Amino Transferase 42 U/L (0-40); Blood Urea Nitrogen 8 mg/dL (8-23); Calcium 9.4 mg/dL (8.5-10.5); Carbon Dioxide 28 mmol/L (22-29); Chloride 99 mmol/L (98-107); Cholesterol 196 mg/dL (0-200); Globulin 3.2 g/dL (1.3-4.6); Glomerular Filtration Rate 114.3 mL/min (90-130); Glucose 320 mg/dL (65-115); HDL Cholesterol 98 mg/dL (60-100); LDL Cholesterol Calculated 82 mg/dL (50-129); LDL HDL Ratio 0.84 RATIO (0.00-3.22); Osmolality Calculated 295 mOsm/kg (285-295); Potassium 4.4 mmol/L (3.5-5.1); Sodium 137 mmol/L (136-145); Total Bilirubin 0.5 mg/dL (0.15-1.2); Total Protein 6.6 g/dL (6.6-8.7); Triglycerides 81 mg/dL (0-150)
[2024-03-02 17:04] LABS: Creatinine Urine, Random 122 mg/dL (39-259); Microalbum Creatinine Ratio Ur 8 mg/dL (0-20); Microalbumin Random Urine 1 ug/dL (0-20)
[2024-03-02 18:59] LABS: Estmated Average Glucose 169; Hemoglobin A1C 7.5 % (4.0-6.0)
== END 2024-03-02 16:17 | disposition home or self-care (01) ==
LOC: RAD 16:19
PROVIDERS: PCP Family Medicine; Visit Provider Internal Medicine
DX: E10.9 Type 1 diabetes mellitus without complications (principal); E78.2 Mixed hyperlipidemia
CPT/HCPCS: 36415; 80053; 80061; 82044; 83036

== ENCOUNTER → 2024-03-07 11:21 | Outpatient (BNVA) | payer MEDICAID, SELFPAY | PROVIDERS: PCP Family Medicine; Visit Provider Internal Medicine | DX: E10.9 Type 1 diabetes mellitus without complications (principal); E78.2 Mixed hyperlipidemia; E03.9 Hypothyroidism, unspecified; E16.0 Drug-induced hypoglycemia without coma; T38.3X5A Adverse effect of insulin and oral hypoglycemic [antidiabetic] drugs, initial encounter; E66.01 Morbid (severe) obesity due to excess calories; Z68.41 Body mass index [BMI] 40.0-44.9, adult; R03.0 Elevated blood-pressure reading, without diagnosis of hypertension; X58.XXXA Exposure to other specified factors, initial encounter | CPT/HCPCS: 99214 ==

== ENCOUNTER → 2024-03-22 15:16 | Outpatient (BNVA) | payer MEDICAID, SELFPAY | PROVIDERS: PCP Family Medicine; Visit Provider Podiatrist Foot & Ankle Surgery | DX: I87.2 Venous insufficiency (chronic) (peripheral) (principal); L60.3 Nail dystrophy; E10.9 Type 1 diabetes mellitus without complications; Z79.4 Long term (current) use of insulin | CPT/HCPCS: 11721 ==

== ENCOUNTER 2024-05-02 14:02 | Outpatient (CLI) | payer MEDICAID, SELFPAY ==
[2024-05-02 14:48] LABS: Creatinine Urine, Random 66 mg/dL (39-259); Microalbum Creatinine Ratio Ur 15 mg/dL (0-20); Microalbumin Random Urine 1 ug/dL (0-20)
[2024-05-02 14:55] LABS: Estmated Average Glucose 206; Hemoglobin A1C 8.8 % (4.0-6.0)
[2024-05-02 15:00] LABS: Alanine Aminotransferase 26 U/L (0-41); Albumin Level 3.2 g/dL (3.5-5.2); Alkaline Phosphatase 316 U/L (40-130); Anion Gap 20.3 (5-19); Aspartate Amino Transferase 48 U/L (0-40); Blood Urea Nitrogen 8 mg/dL (8-23); Calcium 8.7 mg/dL (8.5-10.5); Carbon Dioxide 23 mmol/L (22-29); Chloride 98 mmol/L (98-107); Chol HDL Ratio 2.09 mg/dL (1.0-5.00); Cholesterol 194 mg/dL (0-200); Globulin 3.1 g/dL (1.3-4.6); Glomerular Filtration Rate 97.6 mL/min (90-130); Glucose 233 mg/dL (65-115); HDL Cholesterol 93 mg/dL (60-100); LDL Cholesterol Calculated 82 mg/dL (50-129); LDL HDL Ratio 0.88 RATIO (0.00-3.22); Osmolality Calculated 290 mOsm/kg (285-295); Potassium 4.3 mmol/L (3.5-5.1); Sodium 137 mmol/L (136-145); Thyroid Stimulating Hormone 4.64 uIU/mL (0.27-4.20); Total Bilirubin 0.3 mg/dL (0.15-1.2); Total Protein 6.3 g/dL (6.6-8.7); Triglycerides 93 mg/dL (0-150)
== END 2024-05-02 14:03 | disposition home or self-care (01) ==
LOC: LAB 14:04
PROVIDERS: PCP Family Medicine; Visit Provider Internal Medicine
DX: E10.9 Type 1 diabetes mellitus without complications (principal); E78.2 Mixed hyperlipidemia; E03.9 Hypothyroidism, unspecified; E16.0 Drug-induced hypoglycemia without coma; T38.3X5A Adverse effect of insulin and oral hypoglycemic [antidiabetic] drugs, initial encounter; X58.XXXA Exposure to other specified factors, initial encounter
CPT/HCPCS: 36415; 80053; 80061; 82044; 83036; 84439; 84443

== ENCOUNTER → 2024-05-11 08:53 | Outpatient (BNVA) | payer MEDICAID, SELFPAY | PROVIDERS: PCP Family Medicine; Visit Provider Thoracic Surgery (Cardiothoracic Vascular Surgery) | DX: E11.52 Type 2 diabetes mellitus with diabetic peripheral angiopathy with gangrene (principal); E11.621 Type 2 diabetes mellitus with foot ulcer; L97.822 Non-pressure chronic ulcer of other part of left lower leg with fat layer exposed | CPT/HCPCS: 11042; 99203 ==

== ENCOUNTER → 2024-05-18 12:58 | Outpatient (BNVA) | payer MEDICAID, SELFPAY | PROVIDERS: PCP Family Medicine; Visit Provider Thoracic Surgery (Cardiothoracic Vascular Surgery) | DX: E11.52 Type 2 diabetes mellitus with diabetic peripheral angiopathy with gangrene (principal); E11.622 Type 2 diabetes mellitus with other skin ulcer; L97.821 Non-pressure chronic ulcer of other part of left lower leg limited to breakdown of skin | CPT/HCPCS: 97597 ==

== ENCOUNTER → 2024-05-25 10:58 | Outpatient (BNVA) | payer MEDICAID, SELFPAY | PROVIDERS: PCP Family Medicine; Visit Provider Thoracic Surgery (Cardiothoracic Vascular Surgery) | DX: E11.52 Type 2 diabetes mellitus with diabetic peripheral angiopathy with gangrene (principal); E11.621 Type 2 diabetes mellitus with foot ulcer; L97.821 Non-pressure chronic ulcer of other part of left lower leg limited to breakdown of skin | CPT/HCPCS: 97597; 97598 ==

== ENCOUNTER → 2024-06-01 13:52 | Outpatient (BNVA) | payer MEDICAID, SELFPAY | PROVIDERS: PCP Family Medicine; Visit Provider Thoracic Surgery (Cardiothoracic Vascular Surgery) | DX: E11.52 Type 2 diabetes mellitus with diabetic peripheral angiopathy with gangrene (principal); E11.622 Type 2 diabetes mellitus with other skin ulcer; L97.821 Non-pressure chronic ulcer of other part of left lower leg limited to breakdown of skin | CPT/HCPCS: 97597; 97598; A6197 ==

== ENCOUNTER → 2024-06-06 11:34 | Outpatient (BNVA) | payer MEDICAID, SELFPAY | PROVIDERS: PCP Family Medicine; Visit Provider Internal Medicine | DX: E10.9 Type 1 diabetes mellitus without complications (principal); E78.2 Mixed hyperlipidemia; E03.9 Hypothyroidism, unspecified; E16.0 Drug-induced hypoglycemia without coma; T38.3X5A Adverse effect of insulin and oral hypoglycemic [antidiabetic] drugs, initial encounter; E66.01 Morbid (severe) obesity due to excess calories; Z68.41 Body mass index [BMI] 40.0-44.9, adult; R03.0 Elevated blood-pressure reading, without diagnosis of hypertension | CPT/HCPCS: 99214 ==

== ENCOUNTER → 2024-06-08 11:06 | Outpatient (BNVA) | payer MEDICAID, SELFPAY | PROVIDERS: PCP Family Medicine; Visit Provider Thoracic Surgery (Cardiothoracic Vascular Surgery) | DX: E11.52 Type 2 diabetes mellitus with diabetic peripheral angiopathy with gangrene (principal); E11.622 Type 2 diabetes mellitus with other skin ulcer; L97.821 Non-pressure chronic ulcer of other part of left lower leg limited to breakdown of skin | CPT/HCPCS: 97597; 97598; A6219; A6248 ==

== ENCOUNTER → 2024-06-22 10:45 | Outpatient (BNVA) | payer MEDICAID, SELFPAY | PROVIDERS: PCP Family Medicine; Visit Provider Thoracic Surgery (Cardiothoracic Vascular Surgery) | DX: E11.52 Type 2 diabetes mellitus with diabetic peripheral angiopathy with gangrene (principal); E11.622 Type 2 diabetes mellitus with other skin ulcer; L97.821 Non-pressure chronic ulcer of other part of left lower leg limited to breakdown of skin | CPT/HCPCS: 97597; 97598; A6248 ==

== ENCOUNTER → 2024-06-28 14:19 | Outpatient (BNVA) | payer MEDICAID, SELFPAY | PROVIDERS: PCP Family Medicine; Visit Provider Podiatrist Foot & Ankle Surgery | DX: E10.69 Type 1 diabetes mellitus with other specified complication (principal); L60.3 Nail dystrophy; I87.2 Venous insufficiency (chronic) (peripheral); E10.9 Type 1 diabetes mellitus without complications; Z79.4 Long term (current) use of insulin | CPT/HCPCS: 11721 ==

== ENCOUNTER → 2024-06-29 10:23 | Outpatient (BNVA) | payer MEDICAID, SELFPAY | PROVIDERS: PCP Family Medicine | DX: E11.52 Type 2 diabetes mellitus with diabetic peripheral angiopathy with gangrene (principal); E11.622 Type 2 diabetes mellitus with other skin ulcer; L97.822 Non-pressure chronic ulcer of other part of left lower leg with fat layer exposed | CPT/HCPCS: 97597; 97598 ==

== ENCOUNTER → 2024-07-06 10:31 | Outpatient (BNVA) | payer MEDICAID, SELFPAY | PROVIDERS: PCP Family Medicine | DX: E11.622 Type 2 diabetes mellitus with other skin ulcer (principal); E11.52 Type 2 diabetes mellitus with diabetic peripheral angiopathy with gangrene; L97.822 Non-pressure chronic ulcer of other part of left lower leg with fat layer exposed | CPT/HCPCS: 87070; 87176; 87186; 87205; 97597; A6197 ==

== ENCOUNTER → 2024-07-13 12:52 | Outpatient (BNVA) | payer MEDICAID, SELFPAY | PROVIDERS: PCP Family Medicine | DX: E11.52 Type 2 diabetes mellitus with diabetic peripheral angiopathy with gangrene (principal); E11.622 Type 2 diabetes mellitus with other skin ulcer; L97.822 Non-pressure chronic ulcer of other part of left lower leg with fat layer exposed; I87.2 Venous insufficiency (chronic) (peripheral) | CPT/HCPCS: 11042 ==

== ENCOUNTER 2024-07-19 09:20 | Outpatient (CLI) | payer MEDICAID, SELFPAY ==
--- NOTE | 2024-07-19 09:30 | USR_ITS ---
PROCEDURE INFORMATION: Exam: US Duplex Lower Extremity Veins, Bilateral Exam date and time: 07/19/2024 9:36 AM Age: 64 years old Clinical indication: Screening exam; Eval for reflux; Additional info: E11.622 - type 2 diabetes mellitus with other skin ulcer, with reflux provocation TECHNIQUE: Imaging protocol: Real-time duplex ultrasound of the bilateral extremities with 2-D somers scale, color Doppler flow and spectral waveform analysis including responses to compression and other maneuvers (when performed) with image documentation. Complete exam focused on the lower extremity veins. COMPARISON: No relevant prior studies available. FINDINGS: Right deep veins: Unremarkable. The common femoral, femoral, proximal profunda femoral and popliteal veins appear patent without thrombus. Normal Doppler waveforms. Left deep veins: Unremarkable. The common femoral, femoral, proximal profunda femoral and popliteal veins appear patent without thrombus. Superficial veins: Greater saphenous veins at the saphenofemoral junctions are patent bilaterally without thrombus. Soft tissues: In regards to reflux, on the right: Common femoral vein 1.8 seconds, superficial femoral vein 0.7 seconds, greater saphenous vein 0.6 seconds On the left, common femoral vein 0.5 seconds. Superficial femoral vein 1.8 seconds. US/CV brenda dup insuprateek [facility] [id number] IMPRESSION: No discrete evidence of deep vein thrombosis.
== END 2024-07-19 09:21 | disposition home or self-care (01) ==
LOC: RAD 09:21
PROVIDERS: PCP Family Medicine
DX: E11.622 Type 2 diabetes mellitus with other skin ulcer (principal); L97.929 Non-pressure chronic ulcer of unspecified part of left lower leg with unspecified severity; R60.9 Edema, unspecified
CPT/HCPCS: 93970

== ENCOUNTER 2024-07-20 11:34 | Outpatient (CLI) | payer MEDICAID, SELFPAY ==
[2024-07-20 12:36] LABS: Basophils # 0.1 10^3/uL (0.0-0.1); Basophils % 1.1 %; Eosinophils # 0.4 10^3/uL (0.0-0.8); Eosinophils % 8.9 %; Hematocrit 40.4 % (37-53); Lymphocytes # 1.3 10^3/uL (0.8-4.8); Lymphocytes % 28.8 %; Mean Corpuscular HGB Conc 33.7 g/dL (30-55); Mean Corpuscular Hemoglobin 33.7 pg (27-33); Mean Corpuscular Volume 100.2 fl (82-101); Mean Platelet Volume 10.8 fL (7.4-10.4); Monocytes # 0.5 10^3/uL (0.2-0.9); Monocytes % 10.4 %; Neutrophils # 2.27 10^3/uL (1.8-7.7); Neutrophils % 50.4 %; Nucleated Red Blood Cells % 0 %; Platelet Count 207 10^3/cmm (157-399); Red Blood Count 4.03 10^6/uL (3.85-5.65); Red Cell Distribution Width 14.4 % (12.1-15.1); White Blood Count 4.51 10^3/uL (3.29-11.43)
[2024-07-20 12:51] LABS: Alanine Aminotransferase 28 U/L (0-41); Albumin Level 3.5 g/dL (3.5-5.2); Alkaline Phosphatase 258 U/L (40-130); Anion Gap 18.4 (5-19); Aspartate Amino Transferase 53 U/L (0-40); Blood Urea Nitrogen 13 mg/dL (8-23); Calcium 9.1 mg/dL (8.5-10.5); Carbon Dioxide 26 mmol/L (22-29); Chloride 97 mmol/L (98-107); Glomerular Filtration Rate 113.9 mL/min (90-130); Glucose 174 mg/dL (65-115); Osmolality Calculated 288 mOsm/kg (285-295); Potassium 4.4 mmol/L (3.5-5.1); Sodium 137 mmol/L (136-145); Total Bilirubin 0.3 mg/dL (0.15-1.2); Total Protein 6.5 g/dL (6.6-8.7)
== END 2024-07-20 11:35 | disposition home or self-care (01) ==
LOC: LAB 11:34
PROVIDERS: PCP Family Medicine
DX: E11.52 Type 2 diabetes mellitus with diabetic peripheral angiopathy with gangrene (principal); E11.622 Type 2 diabetes mellitus with other skin ulcer; L97.822 Non-pressure chronic ulcer of other part of left lower leg with fat layer exposed
CPT/HCPCS: 11042; 36415; 80053; 85025

== ENCOUNTER → 2024-07-27 10:09 | Outpatient (BNVA) | payer MEDICAID, SELFPAY | PROVIDERS: PCP Family Medicine; Visit Provider Thoracic Surgery (Cardiothoracic Vascular Surgery) | DX: E11.52 Type 2 diabetes mellitus with diabetic peripheral angiopathy with gangrene (principal); E11.622 Type 2 diabetes mellitus with other skin ulcer; L97.821 Non-pressure chronic ulcer of other part of left lower leg limited to breakdown of skin ==

== ENCOUNTER → 2024-08-03 10:40 | Outpatient (BNVA) | payer MEDICAID, SELFPAY | PROVIDERS: PCP Family Medicine; Visit Provider Thoracic Surgery (Cardiothoracic Vascular Surgery) | DX: E11.52 Type 2 diabetes mellitus with diabetic peripheral angiopathy with gangrene (principal); E11.622 Type 2 diabetes mellitus with other skin ulcer; L97.821 Non-pressure chronic ulcer of other part of left lower leg limited to breakdown of skin | CPT/HCPCS: 97597 ==

== ENCOUNTER → 2024-08-10 10:50 | Outpatient (BNVA) | payer MEDICAID, SELFPAY | PROVIDERS: PCP Family Medicine | DX: E11.52 Type 2 diabetes mellitus with diabetic peripheral angiopathy with gangrene (principal); E11.622 Type 2 diabetes mellitus with other skin ulcer; L97.822 Non-pressure chronic ulcer of other part of left lower leg with fat layer exposed | CPT/HCPCS: 11042 ==

== ENCOUNTER → 2024-08-14 13:28 | Outpatient (BNVA) | payer MEDICAID, SELFPAY | PROVIDERS: PCP Family Medicine; Visit Provider Thoracic Surgery (Cardiothoracic Vascular Surgery) | DX: E11.52 Type 2 diabetes mellitus with diabetic peripheral angiopathy with gangrene (principal); E11.622 Type 2 diabetes mellitus with other skin ulcer; L97.821 Non-pressure chronic ulcer of other part of left lower leg limited to breakdown of skin; I87.2 Venous insufficiency (chronic) (peripheral) | CPT/HCPCS: 97597; A6248 ==

== ENCOUNTER 2024-08-15 13:26 | Oncology outpatient (recurring) (ONCR) | payer MEDICAID, SELFPAY ==
[2024-08-15 13:58] VITALS: BP 142/86; PULSE 74; TEMP 36.9; O2SAT 96
[2024-08-15] MEDS: dalbavancin 1,500 MG in dextrose 5% 250 ML 500 MG IV (14:11)
[2024-08-15 14:51] VITALS: BP 162/88; PULSE 77; TEMP 36.4; O2SAT 97
== END 2024-08-28 23:59 | disposition home or self-care (01) ==
PROVIDERS: PCP Family Medicine; Visit Provider Thoracic Surgery (Cardiothoracic Vascular Surgery)
DX: A49.02 Methicillin resistant Staphylococcus aureus infection, unspecified site (principal); Z79.899 Other long term (current) drug therapy
CPT/HCPCS: 96365; J0875; J7060

== ENCOUNTER → 2024-08-21 13:49 | Outpatient (BNVA) | payer MEDICAID, SELFPAY | PROVIDERS: PCP Family Medicine; Visit Provider Thoracic Surgery (Cardiothoracic Vascular Surgery) | DX: E11.52 Type 2 diabetes mellitus with diabetic peripheral angiopathy with gangrene (principal); E11.622 Type 2 diabetes mellitus with other skin ulcer; L97.821 Non-pressure chronic ulcer of other part of left lower leg limited to breakdown of skin; I87.2 Venous insufficiency (chronic) (peripheral) | CPT/HCPCS: 97597; A6248 ==

== ENCOUNTER → 2024-08-28 13:39 | Outpatient (BNVA) | payer MEDICAID, SELFPAY | PROVIDERS: PCP Family Medicine; Visit Provider Thoracic Surgery (Cardiothoracic Vascular Surgery) | DX: E11.52 Type 2 diabetes mellitus with diabetic peripheral angiopathy with gangrene (principal); E11.622 Type 2 diabetes mellitus with other skin ulcer; L97.821 Non-pressure chronic ulcer of other part of left lower leg limited to breakdown of skin | CPT/HCPCS: 97597 ==

== ENCOUNTER → 2024-08-31 12:54 | Outpatient (BNVA) | payer MEDICAID, SELFPAY | PROVIDERS: PCP Family Medicine; Visit Provider Thoracic Surgery (Cardiothoracic Vascular Surgery) | DX: I96 Gangrene, not elsewhere classified (principal); I87.2 Venous insufficiency (chronic) (peripheral); L97.821 Non-pressure chronic ulcer of other part of left lower leg limited to breakdown of skin | CPT/HCPCS: 29581 ==

== ENCOUNTER → 2024-09-05 13:15 | Outpatient (BNVA) | payer MEDICAID, SELFPAY | PROVIDERS: PCP Family Medicine; Visit Provider Internal Medicine | DX: E10.9 Type 1 diabetes mellitus without complications (principal); E78.2 Mixed hyperlipidemia; E03.9 Hypothyroidism, unspecified; E16.0 Drug-induced hypoglycemia without coma; T38.3X5A Adverse effect of insulin and oral hypoglycemic [antidiabetic] drugs, initial encounter; E66.01 Morbid (severe) obesity due to excess calories; Z68.41 Body mass index [BMI] 40.0-44.9, adult; R03.0 Elevated blood-pressure reading, without diagnosis of hypertension; X58.XXXA Exposure to other specified factors, initial encounter | CPT/HCPCS: 36415; 80053; 80061; 82044; 82947; 83036; 84439; 84443; 84681; 86337; 86341 ==

== ENCOUNTER → 2024-09-07 14:44 | Outpatient (BNVA) | payer MEDICAID, SELFPAY | PROVIDERS: PCP Family Medicine; Visit Provider Thoracic Surgery (Cardiothoracic Vascular Surgery) | DX: E11.52 Type 2 diabetes mellitus with diabetic peripheral angiopathy with gangrene (principal); E11.622 Type 2 diabetes mellitus with other skin ulcer; L97.821 Non-pressure chronic ulcer of other part of left lower leg limited to breakdown of skin | CPT/HCPCS: 97597 ==

== ENCOUNTER → 2024-09-13 15:29 | Outpatient (BNVA) | payer MEDICAID, SELFPAY | PROVIDERS: PCP Family Medicine; Visit Provider Thoracic Surgery (Cardiothoracic Vascular Surgery) | DX: E11.52 Type 2 diabetes mellitus with diabetic peripheral angiopathy with gangrene (principal); E11.622 Type 2 diabetes mellitus with other skin ulcer; L97.821 Non-pressure chronic ulcer of other part of left lower leg limited to breakdown of skin | CPT/HCPCS: 97597; A6021; A6252 ==

== ENCOUNTER → 2024-09-18 10:36 | Outpatient (BNVA) | payer MEDICAID, SELFPAY | PROVIDERS: PCP Family Medicine; Visit Provider Thoracic Surgery (Cardiothoracic Vascular Surgery) | DX: E11.52 Type 2 diabetes mellitus with diabetic peripheral angiopathy with gangrene (principal); E11.622 Type 2 diabetes mellitus with other skin ulcer; L97.821 Non-pressure chronic ulcer of other part of left lower leg limited to breakdown of skin | CPT/HCPCS: 97597; A6210; A6252 ==

== ENCOUNTER → 2024-09-21 10:28 | Outpatient (BNVA) | payer MEDICAID, SELFPAY | PROVIDERS: PCP Family Medicine; Visit Provider Thoracic Surgery (Cardiothoracic Vascular Surgery) | DX: E11.622 Type 2 diabetes mellitus with other skin ulcer (principal); L97.922 Non-pressure chronic ulcer of unspecified part of left lower leg with fat layer exposed; L03.116 Cellulitis of left lower limb; R60.9 Edema, unspecified; I87.2 Venous insufficiency (chronic) (peripheral) | CPT/HCPCS: 29581; A6210; A6252 ==

== ENCOUNTER → 2024-09-28 10:29 | Outpatient (BNVA) | payer MEDICAID, SELFPAY | PROVIDERS: PCP Family Medicine; Visit Provider Thoracic Surgery (Cardiothoracic Vascular Surgery) | DX: E11.52 Type 2 diabetes mellitus with diabetic peripheral angiopathy with gangrene (principal); E11.622 Type 2 diabetes mellitus with other skin ulcer; L97.821 Non-pressure chronic ulcer of other part of left lower leg limited to breakdown of skin; I87.2 Venous insufficiency (chronic) (peripheral) | CPT/HCPCS: 97597 ==

== ENCOUNTER 2024-10-02 11:29 | Outpatient (CLI) | payer MEDICAID, SELFPAY ==
[2024-10-02 13:20] LABS: Alanine Aminotransferase 29 U/L (0-41); Albumin Level 3.1 g/dL (3.5-5.2); Alkaline Phosphatase 239 U/L (40-130); Anion Gap 18.4 (5-19); Aspartate Amino Transferase 48 U/L (0-40); Blood Urea Nitrogen 7 mg/dL (8-23); Calcium 8.5 mg/dL (8.5-10.5); Carbon Dioxide 23 mmol/L (22-29); Chloride 100 mmol/L (98-107); Cholesterol 201 mg/dL (0-200); Free T4 Free Thyroxine 1.27 ng/dL (0.82-1.77); Globulin 2.9 g/dL (1.3-4.6); Glucose 419 mg/dL (65-115); HDL Cholesterol 95 mg/dL (60-100); Osmolality Calculated 300 mOsm/kg (285-295); Potassium 4.4 mmol/L (3.5-5.1); Sodium 137 mmol/L (136-145); Thyroid Stimulating Hormone 2.88 uIU/mL (0.27-4.20); Total Protein 6.0 g/dL (6.6-8.7); Triglycerides 116 mg/dL (0-150)
[2024-10-02 13:52] LABS: Estmated Average Glucose 240; Hemoglobin A1C 10.0 % (4.0-6.0)
[2024-10-02 13:53] LABS: Creatinine Urine, Random 73 mg/dL (39-259); Microalbum Creatinine Ratio Ur 14 mg/dL (0-20)
== END 2024-10-02 11:30 | disposition home or self-care (01) ==
LOC: LAB 11:30
PROVIDERS: PCP Family Medicine; Visit Provider Internal Medicine
DX: E10.9 Type 1 diabetes mellitus without complications (principal); E78.2 Mixed hyperlipidemia; E03.9 Hypothyroidism, unspecified; E16.0 Drug-induced hypoglycemia without coma; E66.01 Morbid (severe) obesity due to excess calories; Z68.41 Body mass index [BMI] 40.0-44.9, adult; R03.0 Elevated blood-pressure reading, without diagnosis of hypertension; T38.3X5A Adverse effect of insulin and oral hypoglycemic [antidiabetic] drugs, initial encounter; X58.XXXA Exposure to other specified factors, initial encounter
CPT/HCPCS: 36415; 80053; 80061; 82044; 83036; 84439; 84443; 84681; 86337; 86341; 97597

== ENCOUNTER → 2024-10-05 10:34 | Outpatient (BNVA) | payer MEDICAID, SELFPAY | PROVIDERS: PCP Family Medicine; Visit Provider Thoracic Surgery (Cardiothoracic Vascular Surgery) | DX: E11.52 Type 2 diabetes mellitus with diabetic peripheral angiopathy with gangrene (principal); E11.622 Type 2 diabetes mellitus with other skin ulcer; L97.821 Non-pressure chronic ulcer of other part of left lower leg limited to breakdown of skin; I87.2 Venous insufficiency (chronic) (peripheral) | CPT/HCPCS: 29581; A6210; A6252 ==

== ENCOUNTER → 2024-10-09 10:46 | Outpatient (BNVA) | payer MEDICAID, SELFPAY | PROVIDERS: PCP Family Medicine; Visit Provider Thoracic Surgery (Cardiothoracic Vascular Surgery) | DX: E11.622 Type 2 diabetes mellitus with other skin ulcer (principal); L97.822 Non-pressure chronic ulcer of other part of left lower leg with fat layer exposed; L03.116 Cellulitis of left lower limb; I87.2 Venous insufficiency (chronic) (peripheral); R60.9 Edema, unspecified | CPT/HCPCS: A6210; A6252 ==

== ENCOUNTER → 2024-10-10 12:56 | Outpatient (BNVA) | payer MEDICAID, SELFPAY | PROVIDERS: PCP Family Medicine; Visit Provider Podiatrist Foot & Ankle Surgery | DX: E10.8 Type 1 diabetes mellitus with unspecified complications (principal); L60.3 Nail dystrophy; I87.2 Venous insufficiency (chronic) (peripheral); Z79.4 Long term (current) use of insulin | CPT/HCPCS: 11721 ==

== ENCOUNTER → 2024-10-12 10:45 | Outpatient (BNVA) | payer MEDICAID, SELFPAY | PROVIDERS: PCP Family Medicine; Visit Provider Thoracic Surgery (Cardiothoracic Vascular Surgery) | DX: E11.52 Type 2 diabetes mellitus with diabetic peripheral angiopathy with gangrene (principal); E11.622 Type 2 diabetes mellitus with other skin ulcer; L97.821 Non-pressure chronic ulcer of other part of left lower leg limited to breakdown of skin; I87.2 Venous insufficiency (chronic) (peripheral) | CPT/HCPCS: 15271 ==

== ENCOUNTER → 2024-10-16 10:37 | Outpatient (BNVA) | payer MEDICAID, SELFPAY | PROVIDERS: PCP Family Medicine; Visit Provider Thoracic Surgery (Cardiothoracic Vascular Surgery) | DX: E11.52 Type 2 diabetes mellitus with diabetic peripheral angiopathy with gangrene (principal); E11.621 Type 2 diabetes mellitus with foot ulcer; L97.821 Non-pressure chronic ulcer of other part of left lower leg limited to breakdown of skin | CPT/HCPCS: A6207; A6250; A6252 ==

== ENCOUNTER → 2024-10-23 10:00 | Outpatient (BNVA) | payer MEDICAID, SELFPAY | PROVIDERS: PCP Family Medicine; Visit Provider Thoracic Surgery (Cardiothoracic Vascular Surgery) | DX: E11.52 Type 2 diabetes mellitus with diabetic peripheral angiopathy with gangrene (principal); E11.622 Type 2 diabetes mellitus with other skin ulcer; L97.821 Non-pressure chronic ulcer of other part of left lower leg limited to breakdown of skin | CPT/HCPCS: 15271; A6207; A6250; A6252 ==

== ENCOUNTER → 2024-10-31 11:00 | Outpatient (BNVA) | payer MEDICAID, SELFPAY | PROVIDERS: PCP Family Medicine; Visit Provider Thoracic Surgery (Cardiothoracic Vascular Surgery) | DX: E11.52 Type 2 diabetes mellitus with diabetic peripheral angiopathy with gangrene (principal); E11.622 Type 2 diabetes mellitus with other skin ulcer; L97.821 Non-pressure chronic ulcer of other part of left lower leg limited to breakdown of skin; I87.2 Venous insufficiency (chronic) (peripheral) | CPT/HCPCS: 15271; A6207; A6220; A6250; Q4186 ==

== ENCOUNTER → 2024-11-07 13:40 | Outpatient (BNVA) | payer MEDICAID, SELFPAY | PROVIDERS: PCP Family Medicine; Visit Provider Thoracic Surgery (Cardiothoracic Vascular Surgery) | DX: E11.52 Type 2 diabetes mellitus with diabetic peripheral angiopathy with gangrene (principal); E11.622 Type 2 diabetes mellitus with other skin ulcer; L97.821 Non-pressure chronic ulcer of other part of left lower leg limited to breakdown of skin; I87.2 Venous insufficiency (chronic) (peripheral) | CPT/HCPCS: 97597; A6021 ==

== ENCOUNTER → 2024-11-13 10:38 | Outpatient (BNVA) | payer MEDICAID, SELFPAY | PROVIDERS: PCP Family Medicine; Visit Provider Thoracic Surgery (Cardiothoracic Vascular Surgery) | DX: E11.52 Type 2 diabetes mellitus with diabetic peripheral angiopathy with gangrene (principal); E11.622 Type 2 diabetes mellitus with other skin ulcer; L97.821 Non-pressure chronic ulcer of other part of left lower leg limited to breakdown of skin | CPT/HCPCS: 97597 ==

== ENCOUNTER → 2024-11-20 10:41 | Outpatient (BNVA) | payer MEDICAID, SELFPAY | PROVIDERS: PCP Family Medicine; Visit Provider Thoracic Surgery (Cardiothoracic Vascular Surgery) | DX: E11.52 Type 2 diabetes mellitus with diabetic peripheral angiopathy with gangrene (principal); E11.622 Type 2 diabetes mellitus with other skin ulcer; L97.821 Non-pressure chronic ulcer of other part of left lower leg limited to breakdown of skin; Z09 Encounter for follow-up examination after completed treatment for conditions other than malignant neoplasm | CPT/HCPCS: 97597 ==

== ENCOUNTER 2024-11-24 01:54 | Inpatient (IN) | payer MEDICAID, SELFPAY ==
[2024-11-24] VITALS (74 sets, daily range): BP systolic 91–167; BP diastolic 49–103; PULSE 93–140; RESP 0–39; TEMP 36.7; O2SAT 74–100; BMI 40.7
--- NOTE | 2024-11-24 01:56 | CTR_ITS ---
PROCEDURE INFORMATION: Exam: CT Head Without Contrast Exam date and time: 11/24/2024 2:14 AM Age: 64 years old Clinical indication: Altered mental status/memory loss; Additional info: AMS TECHNIQUE: Imaging protocol: Computed tomography of the head without contrast. Radiation optimization: All CT scans at this facility use at least one of these dose optimization techniques: automated exposure control; mA and/or kV adjustment per patient size (includes targeted exams where dose is matched to clinical indication); or iterative reconstruction. COMPARISON: No relevant prior studies available. RADIATION DOSE METRICS: Total DLP (mGy-cm): 1260.28 FINDINGS: Brain: Cerebral volume loss, which may be age related. Periventricular white matter hypoattenuation is consistent with chronic ischemic small vessel disease. Cates-white differentiation is otherwise normal. No mass or mass effect. No hemorrhage. Cerebral ventricles: Ex vacuo ventricular dilatation. Paranasal sinuses: Mucosal thickening of the bilateral maxillary sinuses, which can be seen in the setting of chronic sinusitis. Opacification of the ethmoid air cells. Mastoid air cells: Visualized mastoid air cells are well aerated. Bones: Unremarkable. No acute fracture. Soft tissues: Unremarkable. CT/CT head wo con* [id number] IMPRESSION: 1. Changes from chronic ischemic small vessel disease of periventricular white matter and cerebral volume loss, likely age related. Otherwise, no acute intracranial process. If high clinical concern for acute ischemic stroke is present, MRI brain without contrast could be obtained. 2. Mild paranasal sinus disease.
--- NOTE | 2024-11-24 01:56 | XRR_ITS ---
PROCEDURE INFORMATION: Exam: XR Chest Exam date and time: 11/24/2024 2:20 AM Age: 64 years old Clinical indication: Shortness of breath; Additional info: AMS TECHNIQUE: Imaging protocol: Radiologic exam of the chest. Views: 1 view. COMPARISON: CR XR chest 2V* [id number] 02/03/2022 9:23 AM FINDINGS: Tubes, catheters and devices: Partially imaged tubing/catheter coiling over the left neck and left chest. Lungs: Subtle airspace opacity in the left lower lobe favors artifact from overlying breast tissue attenuation and anterior rib overlap. No confluent consolidation. Pleural spaces: Unremarkable. No pleural effusion. No pneumothorax. Heart/Mediastinum: Unremarkable. No cardiomegaly. Bones/joints: Unremarkable. XR/XR chest 1V portable [id number] IMPRESSION: No acute findings.
--- NOTE | 2024-11-24 01:57 | ECG_ITS ---
[facility]24-[facility]24 Pat Name: Case Morin Department: Room: Gender: Male Card Filer: : 1960 Requested By: Osmar Leonard Order Number: [id number] Reading MD: GRADY BELTRAN Measurements Intervals Archer Rate: 115 P: 20 SD: 181 QRS: 41 QRSD: 93 T: 36 QT: 342 QTc: 474 Interpretive Statements SINUS TACHYCARDIA ABNORMAL RHYTHM ECG Compared to ECG 04/05/2016 17:50:49 Sinus rhythm no longer present Myocardial infarct finding no longer present Electronically Signed On 11-25-2024 21:35:45 CDT by GRADY BELTRAN [email or web address] [email or web address]
--- NOTE | 2024-11-24 02:04 | W.ED.AMS ---
HPI - Altered Mental Status General: Chief Complaint: Fall Stated Complaint: Diabetic Time Seen by Provider: 11/24/24 01:55 Source: EMS Mode of arrival: EMS Limitations: altered mental status History of Present Illness: 64-year-old male has a history of type 1 diabetes patient was last seen normal at 9 PM last night by mother patient went to the bathroom she heard him fall she tried to get him out of the bathroom and he was altered EMS states that he has been altered but then will wake to painful stimuli his blood sugars over 500. Here he will wake but will not follow any commands Related Data Home Medications ?Medication ?Instructions ?Recorded ?Confirmed valsartan 40 mg tablet (Diovan) 20 mg PO BID 11/14/19 10/10/24 cholecalciferol (vitamin D3) 10 10 mcg PO DAILY 04/01/20 10/10/24 mcg (400 unit) capsule fexofenadine 180 mg tablet 180 mg PO DAILY 04/01/20 10/10/24 pantoprazole 40 mg tablet,delayed 40 mg PO DAILY 04/01/20 10/10/24 release (Protonix) aspirin 81 mg tablet,delayed 81 mg PO DAILY PRN 11/06/21 10/10/24 release (Adult Aspirin Regimen) chromium picolinate 1,000 mcg 1,000 mcg PO DAILY 11/06/21 10/10/24 tablet latanoprost 0.005 % eye drops 1 drp ophthalmic (eye) DAILY 11/06/21 10/10/24 lutein 6 mg capsule 6 mg PO DAILY 11/06/21 10/10/24 Previous Rx's ?Medication ?Instructions ?Recorded Diabetic shoes with 3 inserts #1 ea 08/26/20 ascorbate calcium (vitamin C) 500 500 mg PO DAILY 90 days #90 tabs 09/15/21 mg tablet albuterol sulfate 90 mcg/actuation 2 puff inhalation Q6H PRN 08/04/23 aerosol inhaler (Ventolin HFA) shortness of breath or wheezing #8.5 grams molnupiravir 200 mg capsule (EUA) 800 mg (4 x 200 mg) PO Q12H 5 days 09/30/23 #40 caps levalbuterol tartrate 45 2 inh inhalation Q6H #15 grams 10/27/23 mcg/actuation aerosol inhaler (Xopenex HFA) atorvastatin 20 mg tablet See Rx Instructions .Route 12/08/23 .COMPLEX #90 tabs pen needle, diabetic 32 gauge x #400 ea 12/10/23 (TechLITE Pen Needle) meloxicam 15 mg tablet See Rx Instructions .Route 02/01/24 .COMPLEX #30 tabs metoprolol tartrate 50 mg tablet See Rx Instructions .Route 02/03/24 .COMPLEX #60 tabs ondansetron 4 mg disintegrating 4 mg PO Q6H PRN nausea and 02/12/24 tablet vomiting #20 tabs sertraline 100 mg tablet See Rx Instructions .Route 03/01/24 .COMPLEX #45 tabs dulaglutide 1.5 mg/0.5 mL 1.5 mg (0.5 mL) SUBCUT Q7D 1 month 03/07/24 subcutaneous pen injector #2 mL (Trulicity) dulaglutide 3 mg/0.5 mL 3 mg (0.5 mL) SUBCUT Q7D 1 month 03/07/24 subcutaneous pen injector #2 mL (Trulicity) dulaglutide 4.5 mg/0.5 mL 4.5 mg (0.5 mL) SUBCUT Q7D #2 mL 03/07/24 subcutaneous pen injector (Trulicity) fluticasone 500 mcg-salmeterol 50 See Rx Instructions .Route 04/28/24 mcg/dose blistr powdr for .COMPLEX #60 ea inhalation (Advair Diskus) furosemide 40 mg tablet See Rx Instructions .Route 05/06/24 .COMPLEX #30 tabs insulin glargine 100 unit/mL (3 See Rx Instructions .Route 06/21/24 mL) subcutaneous pen (Lantus .COMPLEX #75 mL Solostar U-100 Insulin) levofloxacin 500 mg tablet 500 mg PO DAILY #10 tabs 06/22/24 collagenase clostridium histo. 250 1 applic topical DAILY open wound 06/29/24 unit/gram topical ointment (Santyl) 14 days #90 grams clindamycin HCl 300 mg capsule 300 mg PO TID 3 days #9 caps 07/13/24 (Cleocin HCl) clindamycin HCl 300 mg capsule 300 mg PO TID 7 days #21 caps 08/10/24 fluticasone propionate 50 See Rx Instructions .Route 08/14/24 mcg/actuation nasal .COMPLEX #16 grams spray,suspension levothyroxine 200 mcg tablet See Rx Instructions .Route 08/30/24 .COMPLEX #90 tabs blood-glucose transmitter (Dexcom #1 ea 09/07/24 G6 Transmitter device) insulin lispro 100 unit/mL See Rx Instructions .Route 09/29/24 subcutaneous pen .COMPLEX #90 mL alcohol swabs (BD Alcohol Swabs) 1 pad topical .COMPLEX PRN 10/31/24 diabeties #200 ea zolpidem 10 mg tablet 10 mg PO DAILY #30 tabs 10/31/24 amoxicillin 500 mg-potassium 1 tab PO BID #14 tabs 11/13/24 clavulanate 125 mg tablet (Augmentin) blood-glucose sensor (Dexcom G6 #9 ea 11/17/24 Sensor device) glucagon 1 mg solution for 1 mg SUBCUT Q20M PRN hypoglycemia 11/20/24 injection (Glucagon Emergency Kit) #1 ea Allergies Allergy/AdvReac Type Severity Reaction Status Date / Time sulfamethoxazole (From Allergy Severe rash Verified 10/10/24 13:13 Bactrim) trimethoprim (From Bactrim) Allergy Severe rash Verified 10/10/24 13:13 Review of Systems General: Reports: ROS unobtainable due to mental status PFSH ED PFSH: Medical History (Updated 11/24/24 @ 02:53 by Osmar Leonard MD) Knee osteoarthritis Arthritis Hypertension Diabetes type I Acid reflux Depression Asthma Hypothyroidism Polyp in nasopharynx Sleep apnea History of femoral angiogram Surgical History H/O arthroscopic knee surgery Family History Mother Cancer Diabetes Hypertension Hyperlipidemia Hypothyroidism Father Stroke Hypertension Hyperlipidemia Arthritis Social History Smoking and tobacco/nicotine status: never used tobacco/nicotine Second hand smoke exposure: No Alcohol intake: current Alcohol intake frequency: holidays/special occasions only Physical Exam Const: COMMON NORMALS: negative for patient oriented x3 GENERAL APPEARANCE: ill appearing HENMT: COMMON NORMALS: normocephalic and atraumatic HEAD & SCALP: normocephalic and atraumatic Eye: COMMON NORMALS: Equal, round and reactive pupils present and EOMs intact bilaterally PUPIL: Yes Equal, round and reactive pupils present Neck/C-Spine: COMMON NORMALS: full ROM and supple Chest: COMMONS NORMALS: normal inspection of the chest Resp: COMMON NORMALS: normal respiratory effort, No retractions, No use of accessory muscles and clear to auscultation bilaterally AUSCULTATION: clear to auscultation bilaterally Cardio: COMMON NORMALS: regular rhythm and No murmurs present (Cardio) RATE: tachycardic RHYTHM: regular rhythm GI: COMMON NORMALS: Normal to inspection, nondistended, normoactive bowel sounds present, Soft to palpation, non-tender and no masses PALPATION: Yes Soft to palpation Extremity: COMMON NORMALS: normal to inspection and full ROM Neuro: COMMON NORMALS: moves all extremities and no focal motor deficits; negative for patient oriented x3 Psych: COMMON NORMALS: cooperative Skin: COMMON NORMALS: no rashes or lesions noted and no wounds GENERAL SKIN EXAM: no rashes or lesions noted Course Vital Signs: Vital signs: Vital Signs Pulse Rate 116 H 11/24/24 02:08 Respiratory Rate 24 H 11/24/24 02:08 Blood Pressure 138/68 11/24/24 02:08 Pulse Oximetry 98 11/24/24 02:08 Oxygen Delivery Me thod Nasal Cannula 11/24/24 02:08 Oxygen Flow Rate 2 11/24/24 02:08 MDM - Altered Mental Status Medical Decision Making Patient presented altered mental status likely from severe DKA. Patient CT showed no signs of acute stroke. pH is less than 7 glucose is greater than thousand. Did give him insulin along with 2 L of fluid one of the liters was from EMS. Patient also started on insulin drip no signs of infection here did inform his mother of findings we will admit to the ICU spoke to Dr. Aguilar Medical Records I reviewed the patient's medical records. Lab Data I reviewed the patient's lab results. 11/24/24 02:05 11/24/24 02:05 Radiology Impressions Chest X-Ray 11/24/24 01:56 IMPRESSION: No acute findings. Head CT 11/24/24 01:56 IMPRESSION: 1. Changes from chronic ischemic small vessel disease of periventricular white matter and cerebral volume loss, likely age related. Otherwise, no acute intracranial process. If high clinical concern for acute ischemic stroke is present, MRI brain without contrast could be obtained. 2. Mild paranasal sinus disease. Laboratory Results WBC 9.87 10^3/uL (3.29-11.43) 11/24/24 02:05 RBC 4.07 10^6/uL (3.85-5.65) 11/24/24 02:05 Hgb 13.20 g/dL (11.27-16.99) 11/24/24 02:05 Hct 46.2 % (37-53) 11/24/24 02:05 MCV 113.5 fl (82-101) H 11/24/24 02:05 MCH 32.4 pg (27-33) 11/24/24 02:05 MCHC 28.6 g/dL (30-55) L 11/24/24 02:05 RDW 14.0 % (12.1-15.1) 11/24/24 02:05 Plt Count 338 10^3/cmm (157-399) 11/24/24 02:05 MPV 11.4 fL (7.4-10.4) H 11/24/24 02:05 Neut % (Auto) 72.1 % 11/24/24 02:05 Lymph % (Auto) 18.9 % 11/24/24 02:05 [place] % (Auto) 6.3 % 11/24/24 02:05 Eos % (Auto) 0.3 % 11/24/24 02:05 Baso % (Auto) 0.7 % 11/24/24 02:05 Neut # (Auto) 7.11 10^3/uL (1.8-7.7) 11/24/24 02:05 Lymph # (Auto) 1.9 10^3/uL (0.8-4.8) 11/24/24 02:05 [place] # (Auto) 0.6 10^3/uL (0.2-0.9) 11/24/24 02:05 Eos # (Auto) 0.0 10^3/uL (0.0-0.8) 11/24/24 02:05 Baso # (Auto) 0.1 10^3/uL (0.0-0.1) 11/24/24 02:05 Nucleated RBC % (auto) 0 % 11/24/24 02:05 Nucleated RBCs # 0.0 /100WBC 11/24/24 02:05 PT 15.40 SECONDS (12.1-14.9) H 11/24/24 02:05 INR 1.14 (0.8-1.2) 11/24/24 02:05 Specimen Type Arterial 11/24/24 02:26 Sample Site Radial, right 11/24/24 02:26 ABG pH 6.97 (7.35-7.45) L* 11/24/24 02:26 ABG pCO2 18.3 mmHg (35-45) L* 11/24/24 02:26 ABG pO2 134.0 mmHg (80.0-100.0) H 11/24/24 02:26 ABG HCO3 4.2 mmol/L (22-26) L 11/24/24 02:26 ABG Base Excess -26.2 mmol/L (-2.0-2.0) L 11/24/24 02:26 Rosas Test Pos 11/24/24 02:26 Hematocrit 40.7 % (42-52) L 11/24/24 02:26 Hgb O2 Saturation 95.5 % (95-100) 11/24/24 02:26 Carboxyhemoglobin 0.8 %THgb (0.4-20.1) 11/24/24 02:26 Methemoglobin 1.5 % (0.4-1.5) 11/24/24 02:26 Total Hemoglobin 13.3 g/dL (14-18) L 11/24/24 02:26 O2 Delivery Device Nc 11/24/24 02:26 O2 Liters/Min 2.0 % 11/24/24 02:26 Knit Goods Press Hand ID [id number] 11/24/24 02:26 Sodium 133 mmol/L (136-145) L 11/24/24 02:05 Potassium 6.8 mmol/L (3.5-5.1) H* 11/24/24 02:05 Chloride 82 mmol/L (98-107) L 11/24/24 02:05 Carbon Dioxide 6 mmol/L (22-29) L* 11/24/24 02:05 Anion Gap 51.8 (5-19) H 11/24/24 02:05 BUN 29 mg/dL (8-23) H 11/24/24 02:05 Creatinine 1.9 mg/dL (0.7-1.2) H 11/24/24 02:05 GFR Calculation 36.0 mL/min (90-130) L 11/24/24 02:05 Glucose 1122 mg/dL (65-115) H* 11/24/24 02:05 POC Glucose > 600 mg/dL (70-110) H* 11/24/24 01:57 Calculated Osmolality 339 mOsm/kg (285-295) H 11/24/24 02:05 Calcium 9.2 mg/dL (8.5-10.5) 11/24/24 02:05 Phosphorus 10.1 mg/dL (2.5-4.5) H* 11/24/24 02:05 Magnesium 2.7 mg/dL (1.7-2.3) H 11/24/24 02:05 Total Bilirubin 0.3 mg/dL (0.15-1.2) 11/24/24 02:05 AST 31 U/L (0-40) 11/24/24 02:05 ALT 19 U/L (0-41) 11/24/24 02:05 Alkaline Phosphatase 249 U/L (40-130) H 11/24/24 02:05 Total Protein 7.2 g/dL (6.6-8.7) 11/24/24 02:05 Albumin 3.9 g/dL (3.5-5.2) 11/24/24 02:05 Globulin 3.3 g/dL (1.3-4.6) 11/24/24 02:05 Lipase 153 U/L (13-60) H 11/24/24 02:05 Ethyl Alcohol < 10 mg/dL (0-10) 11/24/24 02:05 Serum Ketones Positive (Negative) H 11/24/24 02:05 All radiology interpretation(s) finalized by discharge EKG Data EKG 1: I personally reviewed and interpreted this EKG as follows: EKG interpretation date: 11/24/24 EKG interpretation time: 01:56 Interpretation: Sinus tachycardia heart rate [address] elevation QRS 93 QTc 410 Critical Care Time Critical Care Time: Critical Care Time: Yes Total Critical Care Time: 50 Attestation: The high probability of a clinically significant, sudden or life threatening deterioration of the patient's endocrine system(s) required my full and direct attention, intervention and personal management. The critical care time is as shown. This time is in addition to time spent performing any reported procedures but includes the following: [x] Data and vital sign review and interpretation [x] Patient assessment, examination and intervention [x] Documentation [x] Medication orders and management Discharge Plan Discharge Patient Disposition: Admitted As Inpatient Clinical Impression: AMS (altered mental status) DKA (diabetic ketoacidosis) Qualifiers: Diabetes mellitus type: type 1 Condition: Stable Coding Level of Care Code ED Mens Locker Room Attendant for Yenifer Levy
[2024-11-24 02:12] LABS: Hematocrit 46.2 % (37-53); Hemoglobin 13.20 g/dL (11.27-16.99); Mean Corpuscular HGB Conc 28.6 g/dL (30-55); Mean Corpuscular Hemoglobin 32.4 pg (27-33); Mean Corpuscular Volume 113.5 fl (82-101); Nucleated Red Blood Cells % 0 %; Platelet Count 338 10^3/cmm (157-399); Red Blood Count 4.07 10^6/uL (3.85-5.65); White Blood Count 9.87 10^3/uL (3.29-11.43)
[2024-11-24 02:25] LABS: INR 1.14 (0.8-1.2); Prothrombin Time 15.40 SECONDS (12.1-14.9)
[2024-11-24 02:30] LABS: Ketone (Acetest) Serum Positive (Negative)
[2024-11-24 02:33] LABS: Alanine Aminotransferase 19 U/L (0-41); Albumin Level 3.9 g/dL (3.5-5.2); Alkaline Phosphatase 249 U/L (40-130); Aspartate Amino Transferase 31 U/L (0-40); Blood Urea Nitrogen 29 mg/dL (8-23); Calcium 9.2 mg/dL (8.5-10.5); Chloride 82 mmol/L (98-107); Creatinine Clr Calc Pharmacy 52.0630; Globulin 3.3 g/dL (1.3-4.6); Lipase 153 U/L (13-60); Magnesium 2.7 mg/dL (1.7-2.3); Sodium 133 mmol/L (136-145); Total Protein 7.2 g/dL (6.6-8.7)
[2024-11-24 02:41] LABS: Arterial Blood Gas Hematocrit 40.7 % (42-52); Blood Gas Allen Test Pos; Blood Gas LPM 2.0 %; Blood Gas Operator Identificat JDB; Blood Gas Sample Site Radial, right; Blood Gas Sample Type Arterial; Carboxyhemoglobin 0.8 %THgb (0.4-20.1); HCO3 ABG 4.2 mmol/L (22-26); Methemoglobin 1.5 % (0.4-1.5); PO2 ABG 134.0 mmHg (80.0-100.0)
[2024-11-24 02:41] LABS: Osmolality Calculated 339 mOsm/kg (285-295)
[2024-11-24 02:42] LABS: ABG PCO2 18.3 mmHg (35-45); ABG PH Result 6.97 (7.35-7.45)
[2024-11-24 02:44] LABS: Anion Gap 51.8 (5-19)
[2024-11-24 02:45] LABS: Alcohol Level < 10 mg/dL (0-10)
[2024-11-24 02:46] LABS: Carbon Dioxide 6 mmol/L (22-29); Glucose 1122 mg/dL (65-115); Potassium 6.8 mmol/L (3.5-5.1)
[2024-11-24] MEDS: insulin regular-human 100 units/1 mL 10 UNIT IVP (03:00)
[2024-11-24] MEDS: calcium gluconate 0.1 gm/mL 10% SDV 10mL 1 GM IVP (03:00)
[2024-11-24] MEDS: INSULIN REGULAR IN 0.9 % NACL 100 UNIT/100 ML BAG 12.5 UNIT IV ×2 (03:07→09:05)
[2024-11-24 03:26] LABS: Glucose Urine UA 3+ (Normal); Nitrate Urine Negative (Negative); Specific Gravity, Urine 1.024 (1.005-1.030)
[2024-11-24 03:31] LABS: Add Urine Microscopic? YES
--- NOTE | 2024-11-24 04:25 | PM.HP ---
Providers/Chief Complaint Admitting Physician: Alicja Aguilar MD--- patient admitted after 12 midnight Primary Care Provider: Harrison Hill MD Chief Complaint: Diabetic History of Present Illness Case Morin is a 64 year old male with diabetes type 1 since age 8 and had managed well with the assistance of the mother as a child and now into the adult food. Patient had not been in the hospital admitted for DKA since life. Patient had manage well. He does have left lower extremity diabetic foot ulcer that is healing and had received therapy outpatient at wound care center site is healing does not look infected. Patient started not feeling well within the last 24 hours at home. At home patient had vomited all day. He had nausea and vomiting was not able to keep anything down and did not eat. Patient lives with his dad and mom assisting the mother to take care of the father who had stroke requiring help with ADLs. Very ill today patient accidentally fell and could not be gotten up mother called ambulance and brought the patient to ED patient was essentially obtunded not reacting to much with eyes closed lab studies in the emergency room were very impressive Patient was found to be in DKA with a pH of 6.99 chemistry were significant for a bicarb of 6 and ABG it was 4.2 anion gap 51.8 creatinine 1.9 baseline creatinine usually is 0.7-0.9. He was dry and in an acute renal failure serum blood sugar was 1122. No sooner than the ED attending called me to tell me about the patient that the patient was sent immediately to ICU after having given 1 L of normal saline bolus patient calculated was over 7 L behind aggressive care rendered onsite in ICU patient was started on bicarb drip and was given a push of bicarb as well. DKA insulin protocol initiated. I was on the bedside for over 1 hour delivering care. Bolus of IV fluid normal saline given patient spontaneously woke up lab studies ordered for repeat to guide and repeat serum blood sugar was at 700. This is dropping a bit faster and in this regard, IV fluid insulin drip and more targeted for the clearing of acidosis insulin drip pretty much controlled to avoid further drop of blood sugars Blood cultures were done in the in the ICU. Urinalysis negative white count normal chest x-ray unremarkable EKG unremarkable. Review of Systems Narrative: System review upon 10 organ system reviewed were significant for obtundation that is slightly improved to some grogginess in mental status. Medications/Allergies Home Medications ?Medication ?Instructions ?Recorded ?Confirmed ?Last Taken ?Type valsartan 40 mg tablet (Diovan) 20 mg PO BID 11/14/19 10/10/24 Unknown History cholecalciferol (vitamin D3) 10 10 mcg PO DAILY 04/01/20 10/10/24 Unknown History mcg (400 unit) capsule fexofenadine 180 mg tablet 180 mg PO DAILY 04/01/20 10/10/24 Unknown History pantoprazole 40 mg tablet,delayed 40 mg PO DAILY 04/01/20 10/10/24 Unknown History release (Protonix) Diabetic shoes with 3 inserts #1 ea 08/26/20 10/10/24 Unknown Rx ascorbate calcium (vitamin C) 500 500 mg PO DAILY 90 days #90 tabs 09/15/21 10/10/24 Unknown Rx mg tablet aspirin 81 mg tablet,delayed 81 mg PO DAILY PRN 11/06/21 10/10/24 Unknown History release (Adult Aspirin Regimen) chromium picolinate 1,000 mcg 1,000 mcg PO DAILY 11/06/21 10/10/24 Unknown History tablet latanoprost 0.005 % eye drops 1 drp ophthalmic (eye) DAILY 11/06/21 10/10/24 Unknown History lutein 6 mg capsule 6 mg PO DAILY 11/06/21 10/10/24 Unknown History albuterol sulfate 90 mcg/actuation 2 puff inhalation Q6H PRN 08/04/23 10/10/24 Unknown Rx aerosol inhaler (Ventolin HFA) shortness of breath or wheezing #8.5 grams molnupiravir 200 mg capsule (EUA) 800 mg (4 x 200 mg) PO Q12H 5 days 09/30/23 10/10/24 Unknown Rx #40 caps levalbuterol tartrate 45 2 inh inhalation Q6H #15 grams 10/27/23 10/10/24 Unknown Rx mcg/actuation aerosol inhaler (Xopenex HFA) atorvastatin 20 mg tablet See Rx Instructions .Route 12/08/23 10/10/24 Unknown Rx .COMPLEX #90 tabs pen needle, diabetic 32 gauge x #400 ea 12/10/23 10/10/24 Unknown Rx 32 (TechLITE Pen Needle) meloxicam 15 mg tablet See Rx Instructions .Route 02/01/24 10/10/24 Unknown Rx .COMPLEX #30 tabs metoprolol tartrate 50 mg tablet See Rx Instructions .Route 02/03/24 10/10/24 Unknown Rx .COMPLEX #60 tabs ondansetron 4 mg disintegrating 4 mg PO Q6H PRN nausea and 02/12/24 10/10/24 Unknown Rx tablet vomiting #20 tabs sertraline 100 mg tablet See Rx Instructions .Route 03/01/24 10/10/24 Unknown Rx .COMPLEX #45 tabs dulaglutide 1.5 mg/0.5 mL 1.5 mg (0.5 mL) SUBCUT Q7D 1 month 03/07/24 10/10/24 Unknown Rx subcutaneous pen injector #2 mL (Trulicity) dulaglutide 3 mg/0.5 mL 3 mg (0.5 mL) SUBCUT Q7D 1 month 03/07/24 10/10/24 Unknown Rx subcutaneous pen injector #2 mL (Trulicity) dulaglutide 4.5 mg/0.5 mL 4.5 mg (0.5 mL) SUBCUT Q7D #2 mL 03/07/24 10/10/24 Unknown Rx subcutaneous pen injector (Trulicity) fluticasone 500 mcg-salmeterol 50 See Rx Instructions .Route 04/28/24 10/10/24 Unknown Rx mcg/dose blistr powdr for .COMPLEX #60 ea inhalation (Advair Diskus) furosemide 40 mg tablet See Rx Instructions .Route 05/06/24 10/10/24 Unknown Rx .COMPLEX #30 tabs insulin glargine 100 unit/mL (3 See Rx Instructions .Route 06/21/24 10/10/24 Unknown Rx mL) subcutaneous pen (Lantus .COMPLEX #75 mL Solostar U-100 Insulin) levofloxacin 500 mg tablet 500 mg PO DAILY #10 tabs 06/22/24 10/10/24 Unknown Rx collagenase clostridium histo. 250 1 applic topical DAILY open wound 06/29/24 10/10/24 Unknown Rx unit/gram topical ointment (Santyl) 14 days #90 grams clindamycin HCl 300 mg capsule 300 mg PO TID 3 days #9 caps 07/13/24 10/10/24 Unknown Rx (Cleocin HCl) clindamycin HCl 300 mg capsule 300 mg PO TID 7 days #21 caps 08/10/24 10/10/24 Unknown Rx fluticasone propionate 50 See Rx Instructions .Route 08/14/24 10/10/24 Unknown Rx mcg/actuation nasal .COMPLEX #16 grams spray,suspension levothyroxine 200 mcg tablet See Rx Instructions .Route 08/30/24 10/10/24 Unknown Rx .COMPLEX #90 tabs blood-glucose transmitter (Dexcom #1 ea 09/07/24 10/10/24 Unknown Rx G6 Transmitter device) insulin lispro 100 unit/mL See Rx Instructions .Route 09/29/24 10/10/24 Unknown Rx subcutaneous pen .COMPLEX #90 mL alcohol swabs (BD Alcohol Swabs) 1 pad topical .COMPLEX PRN 10/31/24 Unknown Rx diabeties #200 ea zolpidem 10 mg tablet 10 mg PO DAILY #30 tabs 10/31/24 Unknown Rx amoxicillin 500 mg-potassium 1 tab PO BID #14 tabs 11/13/24 11/13/24 Unknown Rx clavulanate 125 mg tablet (Augmentin) blood-glucose sensor (Dexcom G6 #9 ea 11/17/24 Unknown Rx Sensor device) glucagon 1 mg solution for 1 mg SUBCUT Q20M PRN hypoglycemia 11/20/24 Unknown Rx injection (Glucagon Emergency Kit) #1 ea Allergies Allergy/AdvReac Type Severity Reaction Status Date / Time sulfamethoxazole (From Allergy Severe rash Verified 10/10/24 13:13 Bactrim) trimethoprim (From Bactrim) Allergy Severe rash Verified 10/10/24 13:13 PFSH Acute PFSH: Medical History Knee osteoarthritis Arthritis Hypertension Diabetes type I Acid reflux Depression Asthma Hypothyroidism Polyp in nasopharynx Sleep apnea History of femoral angiogram Surgical History H/O arthroscopic knee surgery Family History Mother Cancer Diabetes Hypertension Hyperlipidemia Hypothyroidism Father Stroke Hypertension Hyperlipidemia Arthritis Social History Smoking and tobacco/nicotine status: never used tobacco/nicotine Second hand smoke exposure: No Alcohol intake: current Alcohol intake frequency: holidays/special occasions only Vitals/I&O/Wt Last Vital Signs Pulse 113 H 11/24/24 03:38 Resp 24 H 11/24/24 03:38 BP 147/59 11/24/24 03:38 Pulse Ox 98 11/24/24 03:38 O2 Del Method Nasal Cannula 11/24/24 02:08 O2 Flow Rate 2 11/24/24 02:08 11/23/24 11/23/24 11/24/24 14:59 22:59 06:59 Intake Total 1012.292 / 1012.292 Balance 1012.292 / 1012.292 Weight last 48 hrs Weight 125.191 kg Physical Exam Narrative: Patient at initial evaluation was essentially obtunded does not respond to painful stimuli. Within an hour of initiating care in ICU patient woke up and was able to answer questions. Patient still very groggy needed to rest and go to sleep HEENT normocephalic/atraumatic neck neck is supple cardiovascular heart rate is regular lungs are pretty much clear abdomen soft nontender not distended unremarkable extremities are intact no edema has good pulses neurology he has no focality except for metabolic encephalopathy secondary to metabolic processes not neurological Urinary Catheter Management: Jacome: Cath Placed During This Visit: yes Urinary Catheter Date of Insertion: 11/24/24 Urinary Catheter Time of Insertion: 03:00 Data 11/24/24 02:05 11/24/24 02:05 A&P Assessment and plan 1. DKA (diabetic ketoacidosis): 2. AMS (altered mental status): 3. Metabolic encephalopathy: 4. Diabetes type I: 5. Acute renal failure: 6. Diabetic ulcer of left lower le. Frequent falls: 8. Dehydration: Plan: DKA with metabolic encephalopathy leading to obtundation - DKA insulin protocol initiated - IV boluses initiated, patient is very behind in fluid - Bicarb drip in place, patient very acidotic - Patient is in insulin debt requiring insulin for clearance of acidosis - Within 1 hour of aggressive initiation of care patient was beginning to wake up in ICU Metabolic encephalopathy - Bicarb drip helping with insulin protocol - Patient responding Left alonso diabetic wound - Wound care consult to follow-up on this patient - Site does not look infected and actually looks essentially very clean with granulation tissues Diabetes type 1 - In review of blood sugars within the last 2 months in the system, it has shown quite uncontrolled in the 300 to 400s - Will follow through with hemoglobin A1c, lipid panel Dehydration - Continue to monitor Acute renal failure - This is secondary to volume contraction, nausea and vomiting and DKA - It is hopeful that this will recover with IV hydration PDMP PDMP Reviewed: Last Reviewed 11/24/24 06:04 by Alicja Aguilar MD Attestations Medical Necessity Statement*: Patient with DKA with severe metabolic acidosis leading to obtundation deserves or meet the criteria for inpatient ICU care and needs at least 2 midnights Coding Level of Care Code 93055 Diagnoses DKA (diabetic ketoacidosis) E11.10 AMS (altered mental status) R41.82 Metabolic encephalopathy G93.41 Diabetes type I E10.9 Acute renal failure N17.9 Diabetic ulcer of left lower leg E11.622; L97.929 Frequent falls R29.6 Dehydration E86.0 Time Spent (min) 70
[2024-11-24 05:05] LABS: ABG PCO2 20.8 mmHg (35-45); Arterial Blood Gas Hematocrit 39.4 % (42-52); Blood Gas Allen Test Pos; Blood Gas Operator Identificat SAM; Blood Gas Sample Site Radial, right; Blood Gas Sample Type Arterial; HCO3 ABG 5.6 mmol/L (22-26); PO2 ABG 115.0 mmHg (80.0-100.0); PO2 FiO2 Ratio Arterial Blood 547
[2024-11-24 05:06] LABS: ABG PH Result 7.04 (7.35-7.45)
[2024-11-24 05:28] LABS: Hematocrit 39.6 % (37-53); Hemoglobin 11.90 g/dL (11.27-16.99); Mean Corpuscular HGB Conc 30.1 g/dL (30-55); Mean Corpuscular Hemoglobin 33.0 pg (27-33); Mean Corpuscular Volume 109.7 fl (82-101); Nucleated Red Blood Cells % 0 %; Platelet Count 269 10^3/cmm (157-399); Red Blood Count 3.61 10^6/uL (3.85-5.65); White Blood Count 13.03 10^3/uL (3.29-11.43)
[2024-11-24 05:46] LABS: Anion Gap 46.6 (5-19); Blood Urea Nitrogen 31 mg/dL (8-23); Calcium 8.8 mg/dL (8.5-10.5); Chloride 90 mmol/L (98-107); Creatinine Clr Calc Pharmacy 48.5868; Magnesium 2.5 mg/dL (1.7-2.3); Potassium 4.6 mmol/L (3.5-5.1); Sodium 138 mmol/L (136-145)
[2024-11-24] MEDS: pantoprazole 40 mg SDV IVP (05:47)
[2024-11-24] MEDS: heparin 5,000 unit/mL INJ 1 mL 5000 UNIT SUBCUT ×3 (05:47→20:18)
[2024-11-24 05:55] LABS: Osmolality Calculated 337 mOsm/kg (285-295)
[2024-11-24 06:00] LABS: Carbon Dioxide 6 mmol/L (22-29); Glucose 890 mg/dL (65-115)
--- NOTE | 2024-11-24 08:24 | P.PN_ITS ---
Subjective 2 Subjective: 64-year-old male admitted with DKA. Reports that he started vomiting. He is confused so history is less accurate but he admits to a hernia states that he has been vomiting and has not been passing gas. He denies that he missed any insulin doses. Currently he is trying to void urine into a emesis basin despite having a Jacome in his penis. I reviewed admission notes and there is no indication that the hernia has been evaluated by physical exam or imaging Vitals/I&O/Wt Last Vital Signs Pulse 121 H 11/24/24 07:00 Resp 19 H 11/24/24 07:00 BP 113/57 11/24/24 07:00 Pulse Ox 100 11/24/24 07:00 O2 Del Method Room Air 11/24/24 04:28 O2 Flow Rate 2 11/24/24 02:08 11/23/24 11/24/24 11/24/24 22:59 06:59 14:59 Intake Total 2272.292 / 2272.292 63.425 / 63.425 Output Total 550 / 550 Balance 1722.292 / 1722.292 63.425 / 63.425 Weight last 48 hrs Weight 119.748 kg Weight 121.109 kg Weight 125.191 kg Physical Exam 2 Narrative: General well-developed well-nourished morbidly obese male awake but disoriented. CV regular rate and rhythm Lungs clear to auscultation bilaterally Abdomen diminished bowel tones hernia is minimally tender with diminished bowel tones. It is incarcerated but not severely tender Calves trace ankle edema GI: OTHER: Urinary Catheter Management: Jacome: Cath Placed During This Visit: yes Reason for Continuing Indwelling Catheter: Accurate Measurement of Urinary Output in Critically Ill Patients Urinary Catheter Date of Insertion: 11/24/24 Urinary Catheter Time of Insertion: 03:00 Data 11/24/24 05:11 11/24/24 08:36 Micro: Microbiology 11/24/24 05:11 Blood Culture - Preliminary Blood SPECIMEN COLLECTED 11/24/24 05:19 Blood Culture - Preliminary Blood SPECIMEN COLLECTED A&P Assessment and plan 1. DKA (diabetic ketoacidosis): change to D5NS with 40 Meq liter at 250 cc an hour and give insulin drip to maintain blood sugars between 100 and 200 until acidosis resolved. Fluid boluses x 2 given in the ER. Patient weighs 261 pounds. Will give additional NS bolus. Chest x-ray is negative for infiltrate. UA negative for pyuria positive for ketones and glucose. Blood cultures x 2 have been sent Last A1c was 09 October 2023 White count 13 pH 7.04 pCO2 20.8 pO2 115. Blood sugar was 417 2. AMS (altered mental status): Attributable to DKA and severe metabolic acidosis. CT of the head was negative 3. Metabolic encephalopathy: As above 4. Acute renal failure: Will volume replete and follow mini panel every 4 hours for anion gap acidosis 5. Diabetic ulcer of left lower leg: Patient has been seeing Dr. Ellington in the wound clinic. LAZARO from November 2020 was normal on the left side and right side unable to be done due to open wound. Patient has not had recent imaging of his foot. Will obtain sed rate and CRP. If elevated we will proceed with imaging of the foot to look for osteomyelitis. Admitting physician noted that physical exam shows very clean wound with granulation tissue. 6. Frequent falls: Physical and Occupational Therapy for potential placement if not functionally independent. 7. Morbid obesity with BMI of 40.0-44.9, adult: Patient's BMI actually down to 39. This in the setting of sleep MIFT and dehydration however. He is borderline at 40 BMI for morbid obesity. Will discuss with them further weight loss diet. Patient is on GLP-1 with due blood glue tied but that is not the most effective option 8. Incarcerated umbilical hernia: Because the patient is in the ICU ongoing to start with plain films. If stomach or air-fluid levels we will place NG tube. This may be the cause of his DKA PDMP PDMP Reviewed: Not Reviewed Attestations 2 Medical Necessity Statement*: Patient remained in the hospital in the ICU for DKA. He will require greater than 2 midnights in the hospital Coding Level of Care Code Acute Code for Chg Fwd Diagnoses DKA (diabetic ketoacidosis) E11.10 Diabetes mellitus type: type 1 AMS (altered mental status) R41.82 Metabolic encephalopathy G93.41 Acute renal failure N17.9 Diabetic ulcer of left lower leg E11.622; L97.929 Frequent falls R29.6 Morbid obesity with BMI of 40.0-44.9, adult E66.01; Z68.41 Incarcerated umbilical hernia K42.0 Time Spent (min) 40
--- NOTE | 2024-11-24 08:27 | PC.PHAR ---
Pt unable to verify his medications at this time. Will follow up with [facility] when they open at 9am 11/24/24
[2024-11-24 09:14] LABS: Anion Gap 40.0 (5-19); Blood Urea Nitrogen 28 mg/dL (8-23); Calcium 8.9 mg/dL (8.5-10.5); Carbon Dioxide 11 mmol/L (22-29); Chloride 94 mmol/L (98-107); Creatinine Clr Calc Pharmacy 53.6619; Osmolality Calculated 321 mOsm/kg (285-295); Potassium 4.0 mmol/L (3.5-5.1); Sodium 141 mmol/L (136-145)
[2024-11-24 09:48] LABS: Glucose 530 mg/dL (65-115)
[2024-11-24] MEDS: sodium chlor 0.9% + KCl 40 mEq 40 MEQ/1,000 ML BAG 250 MEQ IV (12:31)
--- NOTE | 2024-11-24 12:59 | XR_ITS ---
WS: [id number] Exam: XR abdomen min 2V [id number] Date/Time of Exam: 11/24/2024 1:34 PM Reason For Exam: vomiting and not passing gas now DKA DLP: No bowel obstruction or pneumoperitoneum. Organ margins are obscured. Bowel gas pattern is nonacute. Bony structures are unremarkable as visualized. XR/XR abdomen min 2V [id number] IMPRESSION: 1. No acute abdominal process.
[2024-11-24] MEDS: dextrose 5%-ns + KCl 40 40 MEQ/1,000 ML BAG 250 MEQ IV ×3 (13:00→21:57)
[2024-11-24 13:58] LABS: Blood Urea Nitrogen 25 mg/dL (8-23); Calcium 8.4 mg/dL (8.5-10.5); Carbon Dioxide 22 mmol/L (22-29); Chloride 99 mmol/L (98-107); Creatinine Clr Calc Pharmacy 64.3942; Glucose 236 mg/dL (65-115); Osmolality Calculated 308 mOsm/kg (285-295); Sodium 143 mmol/L (136-145)
[2024-11-24 13:59] LABS: Anion Gap 25.6 (5-19); Potassium 3.6 mmol/L (3.5-5.1)
[2024-11-24] MEDS: lidocaine 1% 5 ML in potassium chloride premix 100 ML 52.5 ML IV (15:33)
[2024-11-24 19:47] LABS: Anion Gap 21.5 (5-19); Blood Urea Nitrogen 22 mg/dL (8-23); Calcium 8.4 mg/dL (8.5-10.5); Carbon Dioxide 24 mmol/L (22-29); Chloride 104 mmol/L (98-107); Creatinine Clr Calc Pharmacy 87.8103; Glucose 254 mg/dL (65-115); Osmolality Calculated 312 mOsm/kg (285-295); Potassium 4.5 mmol/L (3.5-5.1); Sodium 145 mmol/L (136-145)
[2024-11-24] MEDS: ondansetron 2 mg/ML SDV 2 mL 4 MG IVP (20:18)
[2024-11-24] MEDS: INSULIN REGULAR IN 0.9 % NACL 100 UNIT/100 ML BAG IV (23:33)
[2024-11-25] VITALS (37 sets, daily range): BP systolic 114–162; BP diastolic 52–103; PULSE 80–149; RESP 0–28; TEMP 36.9–38.4; O2SAT 89–100
[2024-11-25] MEDS: dextrose 5%-ns + KCl 40 40 MEQ/1,000 ML BAG 250 MEQ IV ×2 (02:36→06:37)
[2024-11-25] MEDS: ondansetron 2 mg/ML SDV 2 mL 4 MG IVP ×2 (02:40→08:52)
[2024-11-25] MEDS: pantoprazole 40 mg SDV IVP (04:55)
[2024-11-25] MEDS: heparin 5,000 unit/mL INJ 1 mL 5000 UNIT SUBCUT ×3 (04:55→23:25)
[2024-11-25 05:14] LABS: Lactic Sepsis W/Reflex 3.8 mmol/L (0.5-2.2)
[2024-11-25 05:20] LABS: Blood Urea Nitrogen 18 mg/dL (8-23); Calcium 8.4 mg/dL (8.5-10.5); Carbon Dioxide 24 mmol/L (22-29); Chloride 109 mmol/L (98-107); Creatinine Clr Calc Pharmacy 80.4928; Glucose 259 mg/dL (65-115); Osmolality Calculated 317 mOsm/kg (285-295); Sodium 148 mmol/L (136-145)
[2024-11-25 05:26] LABS: Anion Gap 19.5 (5-19); Magnesium 1.9 mg/dL (1.7-2.3); Potassium 4.5 mmol/L (3.5-5.1); Thyroid Stimulating Hormone 1.39 uIU/mL (0.27-4.20)
[2024-11-25 05:46] LABS: Estmated Average Glucose 252; Hemoglobin A1C 10.4 % (4.0-6.0)
[2024-11-25 06:20] LABS: Reflex Lactate Order REFLEX LACTIC ORDERD
[2024-11-25] MEDS: ATORVASTATIN 20 MG TABLET PO (08:09)
[2024-11-25] MEDS: potassium phosphate (mMol PO4) 30 MMOL in sodium chloride 0.9% (100 ml) 100 ML 25 MMOL IV (09:29)
[2024-11-25 09:31] LABS: Lactic Acid level (Lactate) 2.0 mmol/L (0.5-2.2)
--- NOTE | 2024-11-25 12:28 | P.PN_ITS ---
Subjective 2 Subjective: 64-year-old male admitted with DKA. Patient tells me his father also had recent GI illness. Patient reports nausea but no vomiting RN states he has had some dry heaving. Patient had a bowel movement today loose and dark. Patient states he drinks alcohol just on occasion last was couple weeks ago. His mother Yvrose showed up at bedside and states that patient was doing fine until baby for admission. Patient has had hernia for a long time but has been on weight loss shot weekly and would develop nausea vomiting for 3 to 4 days have 2 days good and then take the shot again. He has been off for a month due to intractable recurrent nausea vomiting. Yvrose and granddaughter had nausea and vomiting some sort of bug and possibly the patient contracted that. He has had insulin-dependent diabetes since age 8 and has never had diabetic ketoacidosis before. Patient had been in [facility] with a [employer] with his then and moved up here. 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 and he has been helping his mother Yvrose to lift his father and provide poststroke care at home Vitals/I&O/Wt Last Vital Signs Temp 98.4 F 11/25/24 08:00 Pulse 113 H 11/25/24 09:00 Resp 6 L 11/25/24 09:00 BP 150/82 11/25/24 09:00 Pulse Ox 97 11/25/24 09:00 O2 Del Method Room Air 11/25/24 09:00 O2 Flow Rate 2 11/24/24 02:08 11/24/24 11/25/24 11/25/24 22:59 06:59 14:59 Intake Total 2022.133 / 2328.400 2080.334 / 4408.734 241.666 / 241.666 Output Total 750 / 950 Balance 1273.133 / 6016.875 9614.334 / 3458.734 241.666 / 241.666 Weight last 48 hrs Weight 127 kg Weight 119.748 kg Weight 121.109 kg Weight 125.191 kg Physical Exam 2 Narrative: General well-developed well-nourished morbidly obese male awake and oriented to person [facility] October 2024 but thought it was the . He knows that Carley is the president Patient with blood over himself in the bed pulled his own IV states he heard that the ICU was closing and he was pulling his IVs so he could go home. CV regular rate and rhythm Lungs clear to auscultation bilaterally Abdomen diminished bowel tones hernia is incarcerated and firm but not tender. Abdomen is no longer tender diffusely Calves trace ankle edema GI: OTHER: Urinary Catheter Management: Jacome: Cath Placed During This Visit: yes Reason for Continuing Indwelling Catheter: Accurate Measurement of Urinary Output in Critically Ill Patients Urinary Catheter Date of Insertion: 11/24/24 Urinary Catheter Time of Insertion: 03:00 Data 11/24/24 05:11 11/25/24 04:13 Micro: Microbiology 11/24/24 05:19 Blood Culture - Preliminary Blood NEGATIVE TO DATE 11/24/24 05:11 Blood Culture - Preliminary Blood NEGATIVE TO DATE A&P Assessment and plan 1. DKA (diabetic ketoacidosis): Change fluid to LR. Start diabetic 1800-calorie carbohydrate controlled diet. 2. AMS (altered mental status): Attributable to DKA and severe metabolic acidosis and now rapid blood sugar swings. CT of the head was negative 3. Acute renal failure: Kidney function improved with creatinine now 1.1. A1c is 10.4 4. Diabetic ulcer of left lower leg: Patient has been seeing Dr. Ellington in the wound clinic. LAZARO from November 2020 was normal on the left side and right side unable to be done due to open wound. Patient has not had recent imaging of his foot. Will obtain sed rate and CRP. If elevated we will proceed with imaging of the foot to look for osteomyelitis. Sed rate is 44 CRP 30 This is suspicious however his leg looked good on exam 5. Frequent falls: Physical and Occupational Therapy for potential placement if not functionally independent. 6. Morbid obesity with BMI of 40.0-44.9, adult: Patient's BMI actually down to 39. And is borderline at 40 BMI for morbid obesity. He has lost 40 pounds but his A1c is terrible at 10.5 despite the weight loss. Will discuss with them further weight loss diet. Patient is on GLP-1 with dulaglutide but that is not the most effective option. Currently the patient cannot tolerate GLP-1 until 7. Incarcerated umbilical hernia: Abdominal exam is improved and I do not think he needs emergent repair but he needs to have his umbilical hernia repaired. Sounds like he was having ileus and obstruction intermittently with the GLP-1 agonist PDMP PDMP Reviewed: Not Reviewed Attestations 2 Medical Necessity Statement*: Patient remained in the hospital for monitoring of his blood sugars and tolerance of diet. If recurrent symptoms will need to have CT scan of abdomen and surgical consult. Anticipate another 2 days in hospital Coding Level of Care Code 47029 Diagnoses DKA (diabetic ketoacidosis) E11.10 Diabetes mellitus type: type 1 AMS (altered mental status) R41.82 Acute renal failure N17.9 Diabetic ulcer of left lower leg E11.622; L97.929 Frequent falls R29.6 Morbid obesity with BMI of 40.0-44.9, adult E66.01; Z68.41 Incarcerated umbilical hernia K42.0 Time Spent (min) 40
--- NOTE | 2024-11-25 12:57 | XRR_ITS ---
PROCEDURE INFORMATION: Exam: XR Left Tibia and Fibula Exam date and time: 11/25/2024 5:08 PM Age: 64 years old Clinical indication: Swelling, leg or foot and other: Wound; Additional info: Chronic wound and elevated esr, look for osteomyelitis TECHNIQUE: Imaging protocol: Radiologic exam of the left tibia and fibula. Views: 2 views. COMPARISON: CR XR foot LT min 3V* [id number] 08/20/2020 11:48 AM FINDINGS: Bones/joints: Os trigonum. Small enthesophyte superior calcaneus. Soft tissues: Moderate soft tissue swelling. No acute fracture or subluxation. XR/XR tibia fibula LT 2V [id number] IMPRESSION: Moderate soft tissue swelling. No acute fracture or subluxation.
--- NOTE | 2024-11-25 13:03 | CTR_ITS ---
PROCEDURE INFORMATION: Exam: CT Abdomen And Pelvis With Contrast Exam date and time: 11/25/2024 5:02 PM Age: 64 years old Clinical indication: Other: Dka and incarcerated hernia TECHNIQUE: Imaging protocol: Computed tomography of the abdomen and pelvis with contrast. Radiation optimization: All CT scans at this facility use at least one of these dose optimization techniques: automated exposure control; mA and/or kV adjustment per patient size (includes targeted exams where dose is matched to clinical indication); or iterative reconstruction. Contrast material: OMNI 350; Contrast volume: 100 ml; Contrast route: INTRAVENOUS (IV); COMPARISON: CR XR abdomen min 2V [id number] 11/24/2024 1:29 PM RADIATION DOSE METRICS: Total DLP (mGy-cm): 1247.57 FINDINGS: Lungs: Bibasilar atelectasis. Coronary arteries: Extensive calcified coronary artery calcifications. Liver: Hepatic steatosis. Gallbladder and biliary ducts: Normal. No calcified stones. No ductal dilation. Pancreas: Normal. No ductal dilation. Spleen: Normal. No splenomegaly. Adrenal glands: Normal. No mass. Kidneys and ureters: No hydronephrosis or nephrolithiasis in either kidney. No hydroureter. Stomach and bowel: Unremarkable. No obstruction. No mucosal thickening. Appendix: The appendix is normal. Intraperitoneal space: Mesenteric fat stranding which is nonspecific but can be seen in mesenteric panniculitis. No pelvic free fluid. 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 Lymph nodes: Unremarkable. No enlarged lymph nodes. Urinary bladder: Jacome catheter in a decompressed bladder. Reproductive: Unremarkable as visualized. Bones/joints: Multilevel degenerative changes including vacuum cleft phenomenon with degenerative disc disease T12-L1, L1-L2. Mild anterior wedging L1 vertebral body. Diffuse bridging anterior osteophytes lower thoracic spine. Soft tissues: Fat containing ventral wall hernia measuring 3.1 cm. Other findings: No abnormal air. CT/CT abdomen pelvis w con* [id number] IMPRESSION: 1. Fat containing ventral wall hernia measuring 3.1 cm. 2. Mesenteric fat stranding which is nonspecific but can be seen in mesenteric panniculitis. 3. Hepatic steatosis. 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 5. Extensive calcified coronary artery calcifications.
[2024-11-25] MEDS: insulin glargine 100 units/1 mL 40 UNIT SUBCUT (13:49)
--- NOTE | 2024-11-25 14:07 | PC.NURSE ---
called Dr. Barbosa patient's blood sugar is currently 514, rechecked and was 469, about one hour after 14 units humalog given - see eMAR. Patient's heart rate is currently 150 and last BP was 114/61. Patient does take 50mg metoprolol BID as a home medication. Dr. Barbosa stated he would put orders in for fluid bolus, insulin, and something for blood pressure.
[2024-11-25 14:30] LABS: Anion Gap 34.6 (5-19); Blood Urea Nitrogen 17 mg/dL (8-23); Calcium 8.6 mg/dL (8.5-10.5); Carbon Dioxide 12 mmol/L (22-29); Chloride 102 mmol/L (98-107); Creatinine Clr Calc Pharmacy 83.0780; Osmolality Calculated 324 mOsm/kg (285-295); Potassium 5.6 mmol/L (3.5-5.1); Sodium 143 mmol/L (136-145)
[2024-11-25 14:34] LABS: Glucose 581 mg/dL (65-115)
[2024-11-25] MEDS: metoprolol tartrate 1 mg/1 mL SDV 5 mL 5 MG IVP (14:42)
[2024-11-25] MEDS: insulin regular-human 100 units/1 mL 10 UNIT IVP (14:46)
[2024-11-25] MEDS: iohexol 350 mg/mL 500 mL Btl (per mL) IV (17:05)
--- NOTE | 2024-11-25 21:57 | PM.MISC ---
Miscellaneous Note Purpose of Documentation: Called by the ICU nurse regarding this patient who was early a.m. transitioned from DKA but had now gone back to DKA since 2 PM on this day. I have restarted the DKA protocol on this patient and arinarb at this time is 12 will follow up with regular insulin DKA protocol was. Note: DKA protocol initiated at this time we will continue to follow through and optimize
--- NOTE | 2024-11-25 22:22 | XRR_ITS ---
PROCEDURE INFORMATION: Exam: XR Chest Exam date and time: 11/25/2024 11:18 PM Age: 64 years old Clinical indication: Abnormal findings; Abnormal diagnostic tests; Abnormal ekg; Worsening leukocytosis; Additional info: Check lungs TECHNIQUE: Imaging protocol: Radiologic exam of the chest. Views: 1 view. COMPARISON: CR (CHEST, ) 11/24/2024 2:20 AM FINDINGS: Lungs: Vague opacities present left lower lobe nonspecific atelectasis or pneumonia could be considered correlate and follow-up as indicated. There are suspicion of findings of developing interstitial edema early presentation. Pleural spaces: Unremarkable. No pleural effusion. No pneumothorax. Heart/Mediastinum: Unremarkable. No cardiomegaly. Bones/joints: Unremarkable. XR/XR chest 1V portable [id number] IMPRESSION: Suspicion for developing early interstitial edema. Vague opacity left lower lobe are nonspecific etiology atelectasis or pneumonia could be considered, nonspecific. Correlate and follow-up as indicated
[2024-11-25 22:36] LABS: Magnesium 1.8 mg/dL (1.7-2.3)
[2024-11-25 22:37] LABS: Anion Gap 15.3 (5-19); Blood Urea Nitrogen 13 mg/dL (8-23); Calcium 8.6 mg/dL (8.5-10.5); Carbon Dioxide 25 mmol/L (22-29); Chloride 106 mmol/L (98-107); Creatinine Clr Calc Pharmacy 99.6936; Glucose 153 mg/dL (65-115); Osmolality Calculated 297 mOsm/kg (285-295); Potassium 4.3 mmol/L (3.5-5.1); Sodium 142 mmol/L (136-145)
[2024-11-25 23:00] LABS: Hematocrit 37.9 % (37-53); Hemoglobin 12.20 g/dL (11.27-16.99); Mean Corpuscular HGB Conc 32.2 g/dL (30-55); Mean Corpuscular Hemoglobin 32.5 pg (27-33); Mean Corpuscular Volume 101.1 fl (82-101); Nucleated Red Blood Cells % 0 %; Platelet Count 190 10^3/cmm (157-399); Red Blood Count 3.75 10^6/uL (3.85-5.65); White Blood Count 7.69 10^3/uL (3.29-11.43)
[2024-11-25] MEDS: dextrose 5%-sod chloride 0.9% 1,000 ML 125 ML IV (23:03)
[2024-11-25] MEDS: INSULIN REGULAR IN 0.9 % NACL 100 UNIT/100 ML BAG 13 UNIT IV (23:06)
[2024-11-26] VITALS (42 sets, daily range): BP systolic 107–179; BP diastolic 73–118; PULSE 63–100; RESP 2–40; TEMP 37.2; O2SAT 90–98
[2024-11-26 00:05] LABS: ABG PCO2 39.6 mmHg (35-45); ABG PH Result 7.44 (7.35-7.45); Arterial Blood Gas Hematocrit 35.2 % (42-52); Blood Gas Allen Test Pos; Blood Gas LPM 2.0 %; Blood Gas Operator Identificat JDB; Blood Gas Sample Site Radial, right; Blood Gas Sample Type Arterial; HCO3 ABG 26.7 mmol/L (22-26); PO2 ABG 76.3 mmHg (80.0-100.0)
--- NOTE | 2024-11-26 01:46 | PC.NURSE ---
Upon arrival patient was oriented, then patient started to become more disoriented. Physician contacted and determined that patient was still in DKA. New orders received to restart DKA protocol and draw labs and obtain a portable chest xray. Patient started on insulin drip with dextrose maintenance fluid. orders received to repeat labs and keep patient on drip until in the morning.
[2024-11-26 02:30] LABS: Anion Gap 13.9 (5-19); Blood Urea Nitrogen 12 mg/dL (8-23); Calcium 8.6 mg/dL (8.5-10.5); Carbon Dioxide 26 mmol/L (22-29); Chloride 107 mmol/L (98-107); Creatinine Clr Calc Pharmacy 99.6936; Glucose 115 mg/dL (65-115); Osmolality Calculated 297 mOsm/kg (285-295); Potassium 3.9 mmol/L (3.5-5.1); Sodium 143 mmol/L (136-145)
[2024-11-26] MEDS: insulin glargine 100 units/1 mL 35 UNIT SUBCUT (05:03)
[2024-11-26] MEDS: heparin 5,000 unit/mL INJ 1 mL 5000 UNIT SUBCUT ×3 (05:17→19:28)
[2024-11-26] MEDS: pantoprazole 40 mg SDV IVP (05:17)
[2024-11-26 06:38] LABS: Hematocrit 35.2 % (37-53); Hemoglobin 11.60 g/dL (11.27-16.99); Mean Corpuscular HGB Conc 33.0 g/dL (30-55); Mean Corpuscular Hemoglobin 33.2 pg (27-33); Mean Corpuscular Volume 100.9 fl (82-101); Nucleated Red Blood Cells % 0 %; Platelet Count 155 10^3/cmm (157-399); Red Blood Count 3.49 10^6/uL (3.85-5.65); White Blood Count 6.76 10^3/uL (3.29-11.43)
[2024-11-26 07:20] LABS: Ammonia 33 umol/L (16-60)
[2024-11-26 07:24] LABS: Alanine Aminotransferase 20 U/L (0-41); Albumin Level 3.2 g/dL (3.5-5.2); Alkaline Phosphatase 187 U/L (40-130); Anion Gap 12.9 (5-19); Aspartate Amino Transferase 47 U/L (0-40); Blood Urea Nitrogen 10 mg/dL (8-23); Calcium 8.6 mg/dL (8.5-10.5); Carbon Dioxide 26 mmol/L (22-29); Chloride 106 mmol/L (98-107); Creatinine Clr Calc Pharmacy 113.1472; Globulin 2.6 g/dL (1.3-4.6); Glucose 161 mg/dL (65-115); Osmolality Calculated 295 mOsm/kg (285-295); Potassium 3.9 mmol/L (3.5-5.1); Sodium 141 mmol/L (136-145); Total Protein 5.8 g/dL (6.6-8.7)
[2024-11-26 07:26] LABS: Alanine Aminotransferase 21 U/L (0-41); Albumin Level 3.2 g/dL (3.5-5.2); Alkaline Phosphatase 185 U/L (40-130); Anion Gap 12.9 (5-19); Aspartate Amino Transferase 47 U/L (0-40); Blood Urea Nitrogen 10 mg/dL (8-23); Calcium 8.6 mg/dL (8.5-10.5); Carbon Dioxide 26 mmol/L (22-29); Chloride 106 mmol/L (98-107); Creatinine Clr Calc Pharmacy 127.2906; Globulin 2.6 g/dL (1.3-4.6); Glucose 165 mg/dL (65-115); Magnesium 1.8 mg/dL (1.7-2.3); Osmolality Calculated 295 mOsm/kg (285-295); Potassium 3.9 mmol/L (3.5-5.1); Sodium 141 mmol/L (136-145); Total Protein 5.8 g/dL (6.6-8.7)
[2024-11-26 07:43] LABS: Lipase 220 U/L (13-60)
[2024-11-26] MEDS: ATORVASTATIN 20 MG TABLET PO (08:31)
[2024-11-26] MEDS: potassium phosphate (mMol PO4) 30 MMOL in sodium chloride 0.9% (100 ml) 100 ML 25 MMOL IV (08:32)
--- NOTE | 2024-11-26 08:49 | P.PN_ITS ---
Subjective 2 Subjective: 64-year-old male admitted with DKA. He has had history of nausea and vomiting with Trulicity GLP-1 agonist lasting 3 to 4 days with each shot. For that reason it was stopped and he has not taken it for a month. The patient came in with acute nausea vomiting developed in a matter of hours. He had associated DKA. This was treated with insulin drip subsequently stopped and there was some recurrence of hyperglycemia so I gave him IV regular insulin 10 units, 40 units of Lantus and aggressive sliding scale and his sugars and labs look good this morning with CO2 26 anion gap 12.9 glucose 165. He does have lipase 153 on the and 220 today but his CAT scan showed no pancreatitis AST and ALT were only minimally elevated and consistent with his diagnosis of fatty liver bilirubin is normal. Patient had bowel movement yesterday and today Vitals/I&O/Wt Last Vital Signs Temp 101.1 F H 11/25/24 16:00 Pulse 93 11/26/24 06:00 Resp 19 H 11/26/24 05:30 BP 145/102 11/26/24 05:30 Pulse Ox 92 11/26/24 05:30 O2 Del Method Room Air 11/25/24 16:00 O2 Flow Rate 2 11/24/24 02:08 11/25/24 11/26/24 11/26/24 22:59 06:59 14:59 Intake Total 240 / 721.666 264.617 / 986.283 Output Total 950 / 950 500 / 1450 Balance -710 / -228.334 -235.383 / -463.717 Weight last 48 hrs Weight 132 kg Weight 127 kg Physical Exam 2 Narrative: General well-developed well-nourished morbidly obese male alert oriented and pleasant no distress Neuro patient's speech is a little bit slurred and he has mild tremor. Mother states this is his baseline speech CV regular rate and rhythm Lungs clear to auscultation bilaterally Abdomen diminished bowel tones hernia is incarcerated and firm but not tender. No right upper quadrant or epigastric tenderness Calves trace ankle edema Urinary Catheter Management: Jacome: Cath Placed During This Visit: yes Reason for Continuing Indwelling Catheter: Accurate Measurement of Urinary Output in Critically Ill Patients Urinary Catheter Date of Insertion: 11/24/24 Urinary Catheter Time of Insertion: 03:00 Data 11/26/24 06:27 11/26/24 06:27 Micro: Microbiology 11/25/24 13:25 Occult Blood (FIT) - Final Stool Routine Collection 11/24/24 05:19 Blood Culture - Preliminary Blood NEGATIVE TO DATE 11/24/24 05:11 Blood Culture - Preliminary Blood NEGATIVE TO DATE A&P Assessment and plan 1. DKA (diabetic ketoacidosis): Resolved continue 1800-calorie ADA diet 2. AMS (altered mental status): Resolved 3. Acute renal failure: Resolved 4. Diabetic ulcer of left lower leg: Patient has been seeing Dr. Ellington in the wound clinic. LAZARO from November 2020 was normal on the left side and right side unable to be done due to open wound. Sed rate is 44 CRP 30 This is suspicious however his leg looked good on exam and left leg tib-fib x- ray is negative. 5. Frequent falls: Physical and Occupational Therapy for potential placement if not functionally independent. Patient mother states that he was helping with his dad at home prior to this admission and did not have frequent falls 6. Morbid obesity with BMI of 40.0-44.9, adult: Patient's BMI actually down to 39. And is borderline at 40 BMI for morbid obesity. He has lost 40 pounds but his A1c is terrible at 10.5 despite the weight loss. Will discuss with them further weight loss diet. Patient is on GLP-1 with dulaglutide but that is not the most effective option. Currently the patient cannot tolerate GLP-1 until Mild elevated lipase is concerning for pancreatitis. I do not think the patient is good candidate for GLP-1. Because of its low-level elevation could be tried again however high risk of developing pancreatitis. Patient is counseled that he should follow low-carb 1800-calorie diet to lose weight. Avoid GLP-1 if at all possible 7. Incarcerated umbilical hernia: CT is reassuring and shows that this is just fat incarceration and no bowel. This therefore does not need to be repaired except for pain or cosmetics 8. Mesenteric panniculitis: Unclear etiology for this which was noted on CT scan of the abdomen with IV and oral contrast. Inflammatory markers elevated because of this diagnosis and his sensitivity to GLP agonist with nausea vomiting may be associated. Patient had fever yesterday possibly also related. Trial diet today and consider treatment with steroids Patient's physicians include Dr. Hill, Dr. Ramirez, Dr. Fallon and Dr. Ellington. Lipase and amylase elevated and chronic sed rate and CRP elevation. Patient had diffuse abdominal discomfort on admission and DKA. I think it may be appropriate to treat with prednisone and tamoxifen. Patient states he is willing to try this.. I think this should be deferred to his PCP unless abdominal pain develops with feeding today PDMP PDMP Reviewed: Not Reviewed Attestations 2 Medical Necessity Statement*: Patient is is restarted on diet and outpatient insulin regimen monitoring response at and GI function in preparation for discharge potentially tomorrow Coding Level of Care Code 26665 Diagnoses DKA (diabetic ketoacidosis) E11.10 Diabetes mellitus type: type 1 AMS (altered mental status) R41.82 Acute renal failure N17.9 Diabetic ulcer of left lower leg E11.622; L97.929 Frequent falls R29.6 Morbid obesity with BMI of 40.0-44.9, adult E66.01; Z68.41 Incarcerated umbilical hernia K42.0 Mesenteric panniculitis K65.4 Time Spent (min) 55
[2024-11-26 09:34] LABS: Coronavirus 229E,HKU1,NL63,OC4 Not Detected (NOT DETECT); Parainfluenza Virus Type 1 Not Detected (NOT DETECT); Parainfluenza Virus Type 2 Not Detected (NOT DETECT); Parainfluenza Virus Type 3 Not Detected (NOT DETECT); Parainfluenza Virus Type 4 Not Detected (NOT DETECT); SARS-COV-2 Not Detected (NOT DETECT)
[2024-11-26] MEDS: insulin glargine 100 units/1 mL 40 UNIT SUBCUT (21:44)
[2024-11-27] VITALS (15 sets, daily range): BP systolic 147–178; BP diastolic 75–104; PULSE 68–97; RESP 14–25; TEMP 36.7–37; O2SAT 93–97
[2024-11-27] MEDS: pantoprazole 40 mg SDV IVP ×2 (05:24→17:35)
[2024-11-27] MEDS: heparin 5,000 unit/mL INJ 1 mL 5000 UNIT SUBCUT ×3 (05:24→22:56)
[2024-11-27 05:34] LABS: Alanine Aminotransferase 26 U/L (0-41); Albumin Level 3.1 g/dL (3.5-5.2); Alkaline Phosphatase 227 U/L (40-130); Anion Gap 14.9 (5-19); Aspartate Amino Transferase 64 U/L (0-40); Blood Urea Nitrogen 8 mg/dL (8-23); Calcium 8.6 mg/dL (8.5-10.5); Carbon Dioxide 27 mmol/L (22-29); Chloride 104 mmol/L (98-107); Creatinine Clr Calc Pharmacy 145.4750; Globulin 2.2 g/dL (1.3-4.6); Glucose 51 mg/dL (65-115); Osmolality Calculated 290 mOsm/kg (285-295); Potassium 3.9 mmol/L (3.5-5.1); Sodium 142 mmol/L (136-145); Total Protein 5.3 g/dL (6.6-8.7)
[2024-11-27 05:48] LABS: Lipase 445 U/L (13-60)
[2024-11-27] MEDS: ATORVASTATIN 20 MG TABLET PO (08:29)
--- NOTE | 2024-11-27 10:14 | P.PN_ITS ---
Subjective 2 Subjective: Hospital course, labs appreciated. Patiently comfortably in bed, weak appearing. Denies any abdominal pain, vomiting. Complains of nausea. Decreased oral intake as per nursing staff. Hypoglycemia today morning. Has remained hemodynamically stable. Blood pressure slightly elevated. Vitals/I&O/Wt Last Vital Signs Temp 98.5 F 11/27/24 04:00 Pulse 82 11/27/24 06:00 Resp 21 H 11/27/24 06:00 BP 178/96 11/27/24 06:00 Pulse Ox 94 11/27/24 06:00 O2 Del Method Room Air 11/27/24 06:00 O2 Flow Rate 2 11/24/24 02:08 11/26/24 11/27/24 11/27/24 22:59 06:59 14:59 Intake Total 0 / 120 320 / 440 120 / 120 Output Total 600 / 600 550 / 1150 1000 / 1000 Balance -600 / -480 -230 / -710 -880 / -880 Weight last 48 hrs Weight 131.7 kg Weight 132 kg Physical Exam 2 Narrative: General well-developed well-nourished morbidly obese male alert oriented and pleasant no distress Neuro patient's speech is a little bit slurred and he has mild tremor. Mother states this is his baseline speech CV regular rate and rhythm Lungs clear to auscultation bilaterally Abdomen diminished bowel tones hernia is incarcerated and firm but not tender. No right upper quadrant or epigastric tenderness Calves trace ankle edema Urinary Catheter Management: Jacome: Cath Placed During This Visit: yes Reason for Continuing Indwelling Catheter: Accurate Measurement of Urinary Output in Critically Ill Patients Urinary Catheter Date of Insertion: 11/24/24 Urinary Catheter Time of Insertion: 03:00 Data 11/26/24 06:27 11/27/24 04:13 A&P Assessment and plan 1. DKA (diabetic ketoacidosis): DKA resolved. A1c more than 10. Episode of hypoglycemia overnight. Decrease Lantus to 20 units nightly. Continue with insulin sliding scale. Uptitrate Lantus depending on fasting blood sugars daily. Goal fasting blood sugar between 100-120. 2. AMS (altered mental status): Resolved 3. Acute renal failure: Resolved 4. Diabetic ulcer of left lower leg: Patient has been seeing Dr. Ellington in the wound clinic. LAZARO from November 2020 was normal on the left side and right side unable to be done due to open wound. Sed rate is 44 CRP 30 This is suspicious however his leg looked good on exam and left leg tib-fib x- ray is negative. 5. Frequent falls: Physical and Occupational Therapy for potential placement if not functionally independent. Patient mother states that he was helping with his dad at home prior to this admission and did not have frequent falls. PT evaluation ordered. 6. Morbid obesity with BMI of 40.0-44.9, adult: Patient's BMI actually down to 39. And is borderline at 40 BMI for morbid obesity. He has lost 40 pounds but his A1c is terrible at 10.5 despite the weight loss. Will discuss with them further weight loss diet. Patient is on GLP-1 with dulaglutide but that is not the most effective option. 7. Incarcerated umbilical hernia: CT is reassuring and shows that this is just fat incarceration and no bowel. This therefore does not need to be repaired except for pain or cosmetics 8. Mesenteric panniculitis: Unclear etiology for this which was noted on CT scan of the abdomen with IV and oral contrast. Inflammatory markers elevated because of this diagnosis and his sensitivity to GLP agonist with nausea vomiting may be associated. Patient had fever yesterday possibly also related. Trial diet today and consider treatment with steroids Patient's physicians include Dr. Hill, Dr. Ramirez, Dr. Fallon and Dr. Ellington. Lipase and amylase elevated and chronic sed rate and CRP elevation. Patient had diffuse abdominal discomfort on admission and DKA. Patient would benefit with follow-up with gastroenterology as an outpatient. Plan: Nausea: No vomiting. Lipase elevated on admission. CT on pelvis on admission negative for pancreatitis though. Does have incarcerated umbilical hernia. CT on admission concerning for fat incarceration and no bowel. Could be in setting of mild pancreatitis due to DKA. Switch to mechanical soft diet. Switch Protonix to twice daily. Continue Zofran as needed. Start on NS at 75 cc/h for 1 bag. If persistent nausea can do CT abdomen pelvis with contrast for further evaluation. Unlikely in setting of mesenteric panniculitis though cannot rule out Hypertension: Goal blood pressure less than 140/90 [place]. Continue with home dose of metoprolol. Will uptitrate for goal blood pressure or add amlodipine/ARB. Full code Mechanical soft carb consistent diet Protonix OPD prophylaxis Heparin for [facility] PDMP PDMP Reviewed: Not Reviewed Attestations 2 Medical Necessity Statement*: Requires further hospitalization for management of nausea in a patient with concern for mild pancreatitis, recent DKA and uncontrolled type 2 diabetes mellitus Diagnoses DKA (diabetic ketoacidosis) E11.10 Diabetes mellitus type: type 1 AMS (altered mental status) R41.82 Acute renal failure N17.9 Diabetic ulcer of left lower leg E11.622; L97.929 Frequent falls R29.6 Morbid obesity with BMI of 40.0-44.9, adult E66.01; Z68.41 Incarcerated umbilical hernia K42.0 Mesenteric panniculitis K65.4
[2024-11-27] MEDS: insulin glargine 100 units/1 mL 10 UNIT SUBCUT (22:58)
[2024-11-28] VITALS (7 sets, daily range): BP systolic 150–180; BP diastolic 70–84; PULSE 69–80; RESP 16–20; TEMP 36.4–37.1; O2SAT 92–97
--- NOTE | 2024-11-28 00:10 | PC.NURSE ---
Jacome catheter was removed prior to this RNs shift. Pt has been voiding since beginning of the shift.
--- NOTE | 2024-11-28 01:37 | PC.NURSE ---
Pt's sugar checked per provider order after giving 10 units of Lantus. Sugar was 132.
[2024-11-28] MEDS: pantoprazole 40 mg SDV IVP (04:09)
[2024-11-28] MEDS: heparin 5,000 unit/mL INJ 1 mL 5000 UNIT SUBCUT (04:13)
[2024-11-28 05:16] LABS: Hematocrit 39.2 % (37-53); Hemoglobin 12.90 g/dL (11.27-16.99); Mean Corpuscular HGB Conc 32.9 g/dL (30-55); Mean Corpuscular Hemoglobin 32.4 pg (27-33); Mean Corpuscular Volume 98.5 fl (82-101); Nucleated Red Blood Cells % 0 %; Platelet Count 132 10^3/cmm (157-399); Red Blood Count 3.98 10^6/uL (3.85-5.65); White Blood Count 7.47 10^3/uL (3.29-11.43)
[2024-11-28 05:35] LABS: Alanine Aminotransferase 36 U/L (0-41); Albumin Level 2.7 g/dL (3.5-5.2); Alkaline Phosphatase 213 U/L (40-130); Anion Gap 14.6 (5-19); Aspartate Amino Transferase 76 U/L (0-40); Blood Urea Nitrogen 7 mg/dL (8-23); Calcium 8.7 mg/dL (8.5-10.5); Carbon Dioxide 27 mmol/L (22-29); Chloride 102 mmol/L (98-107); Creatinine Clr Calc Pharmacy 145.2917; Globulin 2.9 g/dL (1.3-4.6); Glucose 164 mg/dL (65-115); Osmolality Calculated 290 mOsm/kg (285-295); Potassium 4.6 mmol/L (3.5-5.1); Sodium 139 mmol/L (136-145); Total Protein 5.6 g/dL (6.6-8.7)
[2024-11-28] MEDS: ATORVASTATIN 20 MG TABLET PO (09:51)
--- NOTE | 2024-11-28 10:40 | P.DS_ITS ---
Discharge Providers Date of Admission: 11/24/24 03:10 Date of Discharge: November 28, 2024 Attending Provider at Admission: Alicja Aguilar MD Attending Provider at Discharge: Hector Guillory MD Primary Care Provider: Harrison Hill MD Diagnoses at Discharge Discharge Diagnosis 1. DKA (diabetic ketoacidosis): 2. AMS (altered mental status): 3. Acute renal failure: 4. Diabetic ulcer of left lower le. Frequent falls: 6. Morbid obesity with BMI of 40.0-44.9, adult: 7. Incarcerated umbilical hernia: 8. Mesenteric panniculitis: Reason for Visit Reason for Visit: Diabetic Brief History: Per HPI: Case Morin is a 64 year old male with diabetes type 1 since age 8 and had managed well with the assistance of the mother as a child and now into the adult food. Patient had not been in the hospital admitted for DKA since life. Patient had manage well. He does have left lower extremity diabetic foot ulcer that is healing and had received therapy outpatient at wound care center site is healing does not look infected. Patient started not feeling well within the last 24 hours at home. At home patient had vomited all day. He had nausea and vomiting was not able to keep anything down and did not eat. Patient lives with his dad and mom assisting the mother to take care of the father who had stroke requiring help with ADLs. Very ill today patient accidentally fell and could not be gotten up mother called ambulance and brought the patient to ED patient was essentially obtunded not reacting to much with eyes closed lab studies in the emergency room were very impressive Patient was found to be in DKA with a pH of 6.99 chemistry were significant for a bicarb of 6 and ABG it was 4.2 anion gap 51.8 creatinine 1.9 baseline creatinine usually is 0.7-0.9. He was dry and in an acute renal failure serum blood sugar was 1122. No sooner than the ED attending called me to tell me about the patient that the patient was sent immediately to ICU after having given 1 L of normal saline bolus patient calculated was over 7 L behind aggressive care rendered onsite in ICU patient was started on bicarb drip and was given a push of bicarb as well. DKA insulin protocol initiated. I was on the bedside for over 1 hour delivering care. Bolus of IV fluid normal saline given patient spontaneously woke up lab studies ordered for repeat to guide and repeat serum blood sugar was at 700. This is dropping a bit faster and in this regard, IV fluid insulin drip and more targeted for the clearing of acidosis insulin drip pretty much controlled to avoid further drop of blood sugars Blood cultures were done in the in the ICU. Urinalysis negative white count normal chest x-ray unremarkable EKG unremarkable. Hospital Course Hospital Course Patient was admitted to the hospital further evaluation and management of diabetic ketoacidosis. He was started on treatment as per DKA protocol with insulin drip and IV hydration. He responded well to the treatment and his DKA resolved. Blood sugars have been well-controlled on Lantus and insulin sliding scale. Patient did complain of abdominal pain during hospitalization for which CT of the pelvis was done which was concerning for mesenteric panniculitis. There was a concern for mild pancreatitis given elevated lipase. He was treated conservatively with modified soft diet. He responded well to the treatment and has been able to maintain his oral intake. He has been discharged in hemodynamically stable condition on Lantus and NovoLog with advised to continue his treatment. His home dose of Trulicity has recently been discontinued by his PCP given concerns for possible adverse effect with abdominal pain. He was evaluated by physical therapist during hospitalization. He has been discharged in hemodynamically stable condition on oral Augmentin and Levaquin for 5 more days, advised to maintain his oral hydration with 2 to 3 L of liquid daily. Physical Exam Urinary Catheter Management: Jacome: Cath Placed During This Visit: yes, but has since been removed by the nurse Reason for Continuing Indwelling Catheter: Decision to DC Catheter Urinary Catheter Date of Insertion: 11/24/24 Urinary Catheter Time of Insertion: 03:00 Date Urinary Catheter Removed: 11/27/24 Time Urinary Catheter Discontinued: 19:00 Discharge Data Studies Completed and Pending Completed Studies During Hospitalization Category Date Time Status CT abdomen pelvis w con* [id number] Routine Cat Scan 11/25/24 13:[address] head wo con* [id number] Stat Cat Scan 11/24/24 01:56 Completed XR abdomen min 2V [id number] Stat Exams 11/24/24 12:59 Completed XR chest 1V portable [id number] Stat Exams 11/24/24 01:56 Completed XR chest 1V portable [id number] Stat Exams 11/25/24 22:22 Completed XR tibia fibula LT 2V [id number] Routine Exams 11/25/24 12:57 Completed Pending at discharge Category Date Time Status Amylase Routine Lab 11/26/24 06:27 Received Blood Culture Stat Lab 11/24/24 05:11 Results Radiology Impressions Head CT 11/24/24 01:56 IMPRESSION: 1. Changes from chronic ischemic small vessel disease of periventricular white matter and cerebral volume loss, likely age related. Otherwise, no acute intracranial process. If high clinical concern for acute ischemic stroke is present, MRI brain without contrast could be obtained. 2. Mild paranasal sinus disease. Abdomen X-Ray 11/24/24 12:59 IMPRESSION: 1. No acute abdominal process. Tibia/Fibula X-Ray 11/25/24 12:57 IMPRESSION: Moderate soft tissue swelling. No acute fracture or subluxation. Abdomen/Pelvis CT 11/25/24 13:03 IMPRESSION: 1. Fat containing ventral wall hernia measuring 3.1 cm. 2. Mesenteric fat stranding which is nonspecific but can be seen in mesenteric panniculitis. 3. Hepatic steatosis. 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 5. Extensive calcified coronary artery calcifications. Chest X-Ray 11/25/24 22:22 IMPRESSION: Suspicion for developing early interstitial edema. Vague opacity left lower lobe are nonspecific etiology atelectasis or pneumonia could be considered, nonspecific. Correlate and follow-up as indicated Laboratory Results WBC 7.47 10^3/uL (3.29-11.43) 11/28/24 04:58 RBC 3.98 10^6/uL (3.85-5.65) 11/28/24 04:58 Hgb 12.90 g/dL (11.27-16.99) 11/28/24 04:58 Hct 39.2 % (37-53) 11/28/24 04:58 MCV 98.5 fl (82-101) 11/28/24 04:58 MCH 32.4 pg (27-33) 11/28/24 04:58 MCHC 32.9 g/dL (30-55) 11/28/24 04:58 RDW 13.9 % (12.1-15.1) 11/28/24 04:58 Plt Count 132 10^3/cmm (157-399) L 11/28/24 04:58 MPV 11.4 fL (7.4-10.4) H 11/28/24 04:58 Neut % (Auto) 73.5 % 11/28/24 04:58 Lymph % (Auto) 13.0 % 11/28/24 04:58 [place] % (Auto) 9.8 % 11/28/24 04:58 Eos % (Auto) 2.9 % 11/28/24 04:58 Baso % (Auto) 0.4 % 11/28/24 04:58 Neut # (Auto) 5.49 10^3/uL (1.8-7.7) 11/28/24 04:58 Lymph # (Auto) 1.0 10^3/uL (0.8-4.8) 11/28/24 04:58 [place] # (Auto) 0.7 10^3/uL (0.2-0.9) 11/28/24 04:58 Eos # (Auto) 0.2 10^3/uL (0.0-0.8) 11/28/24 04:58 Baso # (Auto) 0.0 10^3/uL (0.0-0.1) 11/28/24 04:58 Nucleated RBC % (auto) 0 % 11/28/24 04:58 Nucleated RBCs # 0.0 /100WBC 11/28/24 04:58 ESR 30 mm/hr (0-10) H 11/26/24 06:27 PT 15.40 SECONDS (12.1-14.9) H 11/24/24 02:05 INR 1.14 (0.8-1.2) 11/24/24 02:05 Specimen Type Arterial 11/26/24 00:00 Sample Site Radial, right 11/26/24 00:00 ABG pH 7.44 (7.35-7.45) 11/26/24 00:00 ABG pCO2 39.6 mmHg (35-45) 11/26/24 00:00 ABG pO2 76.3 mmHg (80.0-100.0) L 11/26/24 00:00 ABG PO2/FiO2 Ratio 547 11/24/24 04:57 ABG HCO3 26.7 mmol/L (22-26) H 11/26/24 00:00 ABG Base Excess 2.4 mmol/L (-2.0-2.0) H 11/26/24 00:00 Rosas Test Pos 11/26/24 00:00 Hematocrit 35.2 % (42-52) L 11/26/24 00:00 Hgb O2 Saturation 95.5 % (95-100) 11/24/24 02:26 Carboxyhemoglobin 0.8 %THgb (0.4-20.1) 11/24/24 02:26 Methemoglobin 1.5 % (0.4-1.5) 11/24/24 02:26 Total Hemoglobin 13.3 g/dL (14-18) L 11/24/24 02:26 O2 Delivery Device Nc 11/26/24 00:00 O2 Liters/Min 2.0 % 11/26/24 00:00 FiO2 21.0 % 11/24/24 04:57 Talent Program Manager ID [id number] 11/26/24 00:00 Sodium 139 mmol/L (136-145) 11/28/24 04:58 Potassium 4.6 mmol/L (3.5-5.1) 11/28/24 04:58 Chloride 102 mmol/L (98-107) 11/28/24 04:58 Carbon Dioxide 27 mmol/L (22-29) 11/28/24 04:58 Anion Gap 14.6 (5-19) 11/28/24 04:58 BUN 7 mg/dL (8-23) L 11/28/24 04:58 Creatinine 0.7 mg/dL (0.7-1.2) 11/28/24 04:58 GFR Calculation 113.9 mL/min (90-130) 11/28/24 04:58 Glucose 164 mg/dL (65-115) H 11/28/24 04:58 POC Glucose 156 mg/dL (70-110) H 11/28/24 06:02 Estimat Average Glucose 252 11/25/24 04:13 Hemoglobin A1c 10.4 % (4.0-6.0) H 11/25/24 04:13 Calculated Osmolality 290 mOsm/kg (285-295) 11/28/24 04:58 Lactic Acid 3.8 mmol/L (0.5-2.2) H 11/25/24 04:13 Lactic Acid (Sepsis) 2.0 mmol/L (0.5-2.2) 11/25/24 08:48 Calcium 8.7 mg/dL (8.5-10.5) 11/28/24 04:58 Phosphorus 3.3 mg/dL (2.5-4.5) 11/27/24 04:13 Magnesium 1.8 mg/dL (1.7-2.3) 11/26/24 06:27 Total Bilirubin 0.5 mg/dL (0.15-1.2) 11/28/24 04:58 Direct Bilirubin 0.16 mg/dL (0.00-0.30) 11/26/24 06:27 AST 76 U/L (0-40) H 11/28/24 04:58 ALT 36 U/L (0-41) 11/28/24 04:58 Alkaline Phosphatase 213 U/L (40-130) H 11/28/24 04:58 Ammonia 33 umol/L (16-60) 11/26/24 06:27 C-Reactive Protein 38.0 mg/L (0.0-4.9) H 11/26/24 06:27 Total Protein 5.6 g/dL (6.6-8.7) L 11/28/24 04:58 Albumin 2.7 g/dL (3.5-5.2) L 11/28/24 04:58 Globulin 2.9 g/dL (1.3-4.6) 11/28/24 04:58 Lipase 445 U/L (13-60) H 11/27/24 04:13 TSH 1.39 uIU/mL (0.27-4.20) 11/25/24 04:13 Urine Color Yellow (Yellow) 11/24/24 02:50 Urine Appearance Clear (CLEAR) 11/24/24 02:50 Urine pH 5.0 (5-7) 11/24/24 02:50 Ur Specific [place] 1.024 (1.005-1.030) 11/24/24 02:50 Urine Protein 1+ (Negative) A 11/24/24 02:50 Urine Glucose (UA) 3+ (Normal) H 11/24/24 02:50 Urine Ketones 3+ (Negative) H 11/24/24 02:50 Urine Blood Trace (Negative) A 11/24/24 02:50 Urine Nitrate Negative (Negative) 11/24/24 02:50 Urine Bilirubin Negative (Negative) 11/24/24 02:50 Urine Urobilinogen 0.2 mg/dL (Negative) 11/24/24 02:50 Ur Leukocyte Esterase Negative (Negative) 11/24/24 02:50 Urine RBC 0-2 /hpf (0-2) 11/24/24 02:50 Urine WBC 0-5 /hpf (0-5) 11/24/24 02:50 Ur Squamous Epith Cells 0-5 /hpf (0-5) 11/24/24 02:50 Amorphous Sediment Not Reportable 11/24/24 02:50 Urine Bacteria None seen /hpf (NONE) 11/24/24 02:50 Hyaline Casts 4.52 /lpf 11/24/24 02:50 Ethyl Alcohol < 10 mg/dL (0-10) 11/24/24 02:05 Serum Ketones Positive (Negative) H 11/24/24 02:05 Adenovirus (PCR) Not detected (NOT DETECT) 11/26/24 05:37 C. pneumoniae DNA (PCR) Not detected (NOT DETECT) 11/26/24 05:37 Coronavirus 229E (PCR) Not detected (NOT DETECT) 11/26/24 05:37 Human Metapneumovir PCR Not detected (NOT DETECT) 11/26/24 05:37 Influenza A (H1) PCR Not detected (NOT DETECT) 11/26/24 05:37 Influ A (H1/09) PCR Not detected (NOT DETECT) 11/26/24 05:37 Influenza A (H3) PCR Not detected (NOT DETECT) 11/26/24 05:37 Influenza Type A (PCR) Not detected (NOT DETECT) 11/26/24 05:37 Influenza Type B (PCR) Not detected (NOT DETECT) 11/26/24 05:37 M. pneumoniae (PCR) Not detected (NOT DETECT) 11/26/24 05:37 Parainfluenza 1 (PCR) Not detected (NOT DETECT) 11/26/24 05:37 Parainfluenza 2 (PCR) Not detected (NOT DETECT) 11/26/24 05:37 Parainfluenza 3 (PCR) Not detected (NOT DETECT) 11/26/24 05:37 Parainfluenza 4 (PCR) Not detected (NOT DETECT) 11/26/24 05:37 RSV Type A (PCR) Not detected (NOT DETECT) 11/26/24 05:37 RSV Type B (PCR) Not detected (NOT DETECT) 11/26/24 05:37 Entero/Rhino (PCR) Not detected (NOT DETECT) 11/26/24 05:37 SARS-CoV-2 (PCR) Not detected (NOT DETECT) 11/26/24 05:37 Vitals Last Vital Signs Temp 98.4 F 11/28/24 06:53 Pulse 69 11/28/24 06:53 Resp 17 11/28/24 06:53 BP 168/83 11/28/24 06:53 Pulse Ox 94 11/28/24 06:53 O2 Del Method Room Air 11/28/24 06:53 O2 Flow Rate 2 11/24/24 02:08 Discharge Plan Discharge Patient Disposition: Home Condition: Stable Prescriptions: New levofloxacin 750 mg tablet 750 mg PO Q24H 5 Days Qty: 5 0RF amoxicillin-pot clavulanate 875-125 mg tablet 1 tab PO BID 5 Days Qty: 10 0RF Continued fexofenadine 180 mg tablet 180 mg PO DAILY cholecalciferol (vitamin D3) 10 mcg (400 unit) capsule 10 mcg PO DAILY Trulicity 4.5 mg/0.5 mL pen injector 4.5 mg SUBCUT Q7D Qty: 2 1RF chromium picolinate 1,000 mcg tablet 1,000 mcg PO DAILY lutein 6 mg capsule 6 mg PO DAILY Rx Instructions: give with meal/snack aspirin [Adult Aspirin Regimen] 81 mg tablet,delayed release (DR/EC) 81 mg PO DAILY PRN (Reason: Pain) latanoprost 0.005 % drops 1 drp ophthalmic (eye) DAILY (DME) Diabetic shoes with 3 inserts See Rx Instructions .ROUTE .MEDSUPPLY Qty: 1 0RF Rx Instructions: As directed ascorbate calcium (vitamin C) 500 mg tablet 500 mg PO DAILY 90 Days Qty: 90 0RF (DME) pen needle, diabetic [TechLITE Pen Needle] 32 gauge x 5/32 needle See Rx Instructions .ROUTE .COMPLEX Qty: 400 0RF Dose Instruction: USE DIRECTED Rx Instructions: USE DIRECTED (DME) Dexcom G6 Transmitter Device See Rx Instructions .ROUTE .COMPLEX Qty: 1 0RF Dose Instruction: USE DIRECTED TO CHECK BLOOD GLUCOSE Rx Instructions: USE DIRECTED TO CHECK BLOOD GLUCOSE insulin lispro 100 unit/mL insulin pen See Rx Instructions .ROUTE .COMPLEX Qty: 90 1RF Dose Instruction: ADMINISTER 30 UNITS UNDER THE SKIN THREE TIMES DAILY BEFORE MEALS Rx Instructions: ADMINISTER 18 UNITS before breakfast and 25 units before lunch and dinner. zolpidem 10 mg tablet 10 mg PO DAILY Qty: 30 5RF (DME) Dexcom G6 Sensor Device See Rx Instructions .ROUTE .COMPLEX Qty: 9 1RF Dose Instruction: APPLY 1 SENSOR EVERY 10 DAYS DIRECTED Rx Instructions: APPLY 1 SENSOR EVERY 10 DAYS DIRECTED Glucagon Emergency Kit (human) 1 mg recon soln 1 mg SUBCUT Q20M PRN (Reason: hypoglycemia) Qty: 1 11RF Rx Instructions: until target blood sugar attained furosemide 40 mg tablet 40 mg PO DAILY atorvastatin 20 mg tablet 20 mg PO DAILY sertraline 100 mg tablet 150 mg PO DAILY metoprolol tartrate 50 mg tablet 50 mg PO BID levothyroxine 200 mcg tablet 200 mcg PO DAILY Santyl 250 unit/gram ointment 1 applic topical DAILY PRN (Reason: open wound) Rx Instructions: apply nickel thick to wound once daily. fluticasone propionate 50 mcg/actuation spray,suspension 2 spray intranasal DAILY Changed insulin glargine [Lantus Solostar U-100 Insulin] 100 unit/mL (3 mL) insulin pen 35 unit SUBCUT DAILY 30 Days Qty: 0 0RF Discontinued amoxicillin-pot clavulanate [Augmentin] 500-125 mg tablet 1 tab PO BID Qty: 14 0RF meloxicam 15 mg tablet 15 mg PO DAILY Discharge Order = DC NOW: Discharge Order (Routine); Ordered 11/28/24 Ordered By: Hector Guillory Other Ambulatory Orders: DME: Darrin (Order) Location: None Selected Ordered By: Hector Guillory Referrals: Harrison Hill MD [Primary Care Provider, Family Practice] - 7-10 days Referral Note: We have notified your physician's clinic of the need for a follow-up appointment to be scheduled. If you have not heard from them within the next 2 business days, please call them directly. Patient Instructions: Diabetes and Diet, Amoxicillin/Clavulanate Potassium (By mouth), Levofloxacin (By mouth), Diabetic Ketoacidosis (GEN), Opioid Safety, Patient Portal & Carlos Alberto Instructions Discharge Attestations Time Spent in Discharge Care*: greater than 30 min Specific Discharge Activities: educating patient, discussing with pcp/other providers, discussing with field nurse case manager/social workers/dc planners, documenting/other paperwork and evaluating patient/reviewing data Status at Discharge: Cognitive status at discharge: cognitively intact , Behavioral status at discharge: cooperative , Functional status at discharge: independent ambulation , Overall status at discharge: patient is back to baseline Quality Metrics Clinical Quality Measures [ No reported AMI, CVA or VTE this stay] Coding Level of Care Code 48883 Total time (in minutes) for Discharge: 65 Diagnoses DKA (diabetic ketoacidosis) E11.10 Diabetes mellitus type: type 1 AMS (altered mental status) R41.82 Acute renal failure N17.9 Diabetic ulcer of left lower leg E11.622; L97.929 Frequent falls R29.6 Morbid obesity with BMI of 40.0-44.9, adult E66.01; Z68.41 Incarcerated umbilical hernia K42.0 Mesenteric panniculitis K65.4
[2024-11-28 14:04] LABS: Amylase 235 U/L (21-101)
== END 2024-11-28 12:37 | disposition home or self-care (01) | DRG 637 ==
LOC: ER 03:04 → ICU 03:11 → MEDSURG 11-27 13:17
PROVIDERS: Internal Medicine; Admitting Provider Internal Medicine; Emergency Provider Emergency Medicine; PCP Family Medicine; Visit Provider Student in an Organized Health Care Education/Training Program
DX: E10.10 Type 1 diabetes mellitus with ketoacidosis without coma (principal); G93.41 Metabolic encephalopathy; K85.90 Acute pancreatitis without necrosis or infection, unspecified; K42.0 Umbilical hernia with obstruction, without gangrene; N17.9 Acute kidney failure, unspecified; Z68.41 Body mass index [BMI] 40.0-44.9, adult; K65.4 Sclerosing mesenteritis; L97.829 Non-pressure chronic ulcer of other part of left lower leg with unspecified severity; Z79.4 Long term (current) use of insulin; W19.XXXA Unspecified fall, initial encounter; E66.01 Morbid (severe) obesity due to excess calories; Z88.2 Allergy status to sulfonamides; Z79.82 Long term (current) use of aspirin; J45.909 Unspecified asthma, uncomplicated; I10 Essential (primary) hypertension; E03.9 Hypothyroidism, unspecified; Z79.890 Hormone replacement therapy; K21.9 Gastro-esophageal reflux disease without esophagitis; E86.0 Dehydration; Z83.3 Family history of diabetes mellitus; Z82.49 Family history of ischemic heart disease and other diseases of the circulatory system; E10.622 Type 1 diabetes mellitus with other skin ulcer; F32.A Depression, unspecified
CPT/HCPCS: 36415; 36416; 36600; 51702; 70450; 71045; 73590; 74019; 74177; 80048; 80053; 80076; 80307; 81001; 82009; 82140; 82150; 82274; 82803; 82805; 82962; 83036; 83605; 83690; 83735; 84100; 84443; 85025; 85610; 85651; 86140; 87040; 87486; 87581; 87633; 93005; 96365; 96367; 96372; 96375; 97116; 97161; 97530; 99285; J0612; J1644; J1815; J2405; J2470; J3480; J3490; J7030; J7042; J7070; J7120; J7799; J9999

== ENCOUNTER → 2024-12-04 10:50 | Outpatient (BNVA) | payer MEDICAID, SELFPAY | PROVIDERS: PCP Family Medicine; Visit Provider Internal Medicine | DX: E10.9 Type 1 diabetes mellitus without complications (principal); E78.2 Mixed hyperlipidemia; E03.9 Hypothyroidism, unspecified; E16.0 Drug-induced hypoglycemia without coma; T38.3X5A Adverse effect of insulin and oral hypoglycemic [antidiabetic] drugs, initial encounter; E66.01 Morbid (severe) obesity due to excess calories; Z68.41 Body mass index [BMI] 40.0-44.9, adult; R03.0 Elevated blood-pressure reading, without diagnosis of hypertension; X58.XXXA Exposure to other specified factors, initial encounter; Z79.4 Long term (current) use of insulin | CPT/HCPCS: 99214 ==

== ENCOUNTER → 2024-12-05 14:00 | Outpatient (BNVA) | payer MEDICAID, SELFPAY | PROVIDERS: PCP Family Medicine; Visit Provider Thoracic Surgery (Cardiothoracic Vascular Surgery) | DX: E11.52 Type 2 diabetes mellitus with diabetic peripheral angiopathy with gangrene (principal); E11.622 Type 2 diabetes mellitus with other skin ulcer; L97.821 Non-pressure chronic ulcer of other part of left lower leg limited to breakdown of skin; I87.2 Venous insufficiency (chronic) (peripheral) | CPT/HCPCS: 97597; A6212 ==

== ENCOUNTER → 2024-12-12 14:21 | Outpatient (BNVA) | payer MEDICAID, SELFPAY | PROVIDERS: PCP Family Medicine; Visit Provider Thoracic Surgery (Cardiothoracic Vascular Surgery) | DX: E11.52 Type 2 diabetes mellitus with diabetic peripheral angiopathy with gangrene (principal); E11.622 Type 2 diabetes mellitus with other skin ulcer; L97.821 Non-pressure chronic ulcer of other part of left lower leg limited to breakdown of skin; I87.2 Venous insufficiency (chronic) (peripheral) | CPT/HCPCS: 97597; A6252 ==

== ENCOUNTER 2024-12-15 17:11 | Inpatient (IN) | payer MEDICAID, SELFPAY ==
[2024-12-15] VITALS (8 sets, daily range): BP systolic 127–192; BP diastolic 62–115; PULSE 105–124; RESP 18; TEMP 36.9; O2SAT 90–96; BMI 36.1
--- NOTE | 2024-12-15 17:19 | XRR_ITS ---
PROCEDURE INFORMATION: Exam: XR Chest Exam date and time: 12/15/2024 5:28 PM Age: 64 years old Clinical indication: Other: Vomiting TECHNIQUE: Imaging protocol: Radiologic exam of the chest. Views: 1 view. Total images: 1 COMPARISON: 1. CR (CHEST, ) 11/25/2024 11:18 PM 2. CR (CHEST, ) 11/24/2024 2:20 AM 3. CR XR chest 2V* [id number] 02/03/2022 9:[address] abdomen pelvis w con* [id number] 11/25/2024 5:02 PM FINDINGS: Limitations: The frontal view of the chest is taken in lordotic positioning. Low lung volumes. Lungs: Stable left base streaky linear opacities characteristic of atelectasis or postinflammatory parenchymal scarring. Suboptimal lung expansion accounts for elevation of the diaphragms, central bronchovascular crowding, mild generalized increase in pulmonary parenchymal density. Pleural spaces: No significant pleural effusion. No pneumothorax. Heart/Mediastinum: Normal heart size. Bones/joints: Moderate generalized degenerative changes of the vertebral column, including multilevel osteophytes, degenerative disc height loss, and facet arthrosis, consistent with patient age. Shoulder glenohumeral osteoarthritis. Acromioclavicular joint mild chronic degenerative arthrosis. No intrinsic osseous abnormality identified. XR/XR chest 1V portable [id number] IMPRESSION: 1. Stable left base streaky linear opacities characteristic of atelectasis or postinflammatory parenchymal scarring, less likely developing pneumonia. 2. Expiratory chest x-ray. 3. Moderate age-appropriate degenerative spinal changes, with other chronic/non-acute findings as described above.
--- NOTE | 2024-12-15 17:20 | ECG_ITS ---
[facility] Test Date: 2024-12-15 Pat Name: Case Morin Department: Room: Gender: Male Scenario Writer: : 1960 Requested By: Osmar Leonard Order Number: [id number] Walton MD: Durga Steele M.D. Measurements Intervals [place] Rate: 125 P: 64 VT: 169 QRS: 19 QRSD: 82 T: 50 QT: 287 QTc: 415 Interpretive Statements SINUS TACHYCARDIA POSSIBLE ANTERIOR MYOCARDIAL INFARCTION , OF INDETERMINATE AGE [30 ms Q WAVE IN V3/V4, OR R < 0.2 mV IN V4] Compared to ECG 11/24/2024 01:56:38 Myocardial infarct finding now present Electronically Signed On 12-16-2024 11:57:39 CDT by Durga Steele M.D. [email or web address]
--- NOTE | 2024-12-15 17:20 | W.ED.NAVMDI ---
HPI - Nausea/Vomiting/Diarrhea General: Chief complaint: Nausea/Vomiting/Diarrhea Stated complaint: diabetic issues Source: patient Mode of arrival: ambulatory Limitations: no limitations History of Present Illness: 64-year-old male has a history of type 1 diabetes with complications of DKA in the past. Patient was recently released 2 or 3 weeks ago with DKA states since then he still been feeling ill the last 3 days has had increased nausea vomiting along with frequent urination. Patient here is tachycardic and EMS his blood sugar was in the 400s. He denies any increased pain anywhere he is afebrile here. Associated nausea: Yes Associated symtoms: Reports nausea Related Data Home Medications ?Medication ?Instructions ?Recorded ?Confirmed cholecalciferol (vitamin D3) 10 10 mcg PO DAILY 04/01/20 12/04/24 mcg (400 unit) capsule fexofenadine 180 mg tablet 180 mg PO DAILY 04/01/20 12/04/24 aspirin 81 mg tablet,delayed 81 mg PO DAILY PRN Pain 11/06/21 12/04/24 release (Adult Aspirin Regimen) chromium picolinate 1,000 mcg 1,000 mcg PO DAILY 11/06/21 12/04/24 tablet latanoprost 0.005 % eye drops 1 drp ophthalmic (eye) DAILY 11/06/21 12/04/24 lutein 6 mg capsule 6 mg PO DAILY 11/06/21 12/04/24 atorvastatin 20 mg tablet 20 mg PO DAILY 11/24/24 12/04/24 collagenase clostridium histo. 250 1 applic topical DAILY PRN open 11/24/24 12/04/24 unit/gram topical ointment (Santyl) wound fluticasone propionate 50 2 spray intranasal DAILY 11/24/24 12/04/24 mcg/actuation nasal spray,suspension furosemide 40 mg tablet 40 mg PO DAILY 11/24/24 12/04/24 levothyroxine 200 mcg tablet 200 mcg PO DAILY 11/24/24 12/04/24 metoprolol tartrate 50 mg tablet 50 mg PO BID 11/24/24 12/04/24 sertraline 100 mg tablet 150 mg PO DAILY 11/24/24 12/04/24 Previous Rx's ?Medication ?Instructions ?Recorded Diabetic shoes with 3 inserts #1 ea 08/26/20 ascorbate calcium (vitamin C) 500 500 mg PO DAILY 90 days #90 tabs 09/15/21 mg tablet pen needle, diabetic 32 gauge x #400 ea 12/10/23 (TechLITE Pen Needle) dulaglutide 4.5 mg/0.5 mL 4.5 mg (0.5 mL) SUBCUT Q7D #2 mL 03/07/24 subcutaneous pen injector (Trulicity) blood-glucose transmitter (Dexcom #1 ea 09/07/24 G6 Transmitter device) insulin lispro 100 unit/mL See Rx Instructions .Route 09/29/24 subcutaneous pen .COMPLEX #90 mL zolpidem 10 mg tablet 10 mg PO DAILY #30 tabs 10/31/24 blood-glucose sensor (Dexcom G6 #9 ea 11/17/24 Sensor device) glucagon 1 mg solution for 1 mg SUBCUT Q20M PRN hypoglycemia 11/20/24 injection (Glucagon Emergency Kit) #1 ea insulin glargine 100 unit/mL (3 35 unit (0.35 mL) SUBCUT DAILY 30 11/28/24 mL) subcutaneous pen (Lantus days #0 mL Solostar U-100 Insulin) acetone (urine) test (Ketone Urine #100 ea 12/04/24 Test strips) Allergies Allergy/AdvReac Type Severity Reaction Status Date / Time sulfamethoxazole (From Allergy Severe rash Verified 10/10/24 13:13 Bactrim) trimethoprim (From Bactrim) Allergy Severe rash Verified 10/10/24 13:13 Review of Systems GI: Reports: nausea and vomiting PFS ED PFSH: Medical History Knee osteoarthritis Arthritis Hypertension Diabetes type I Acid reflux Depression Asthma Hypothyroidism Polyp in nasopharynx Sleep apnea History of femoral angiogram Surgical History H/O arthroscopic knee surgery Family History Mother Cancer Diabetes Hypertension Hyperlipidemia Hypothyroidism Father Stroke Hypertension Hyperlipidemia Arthritis Social History Smoking and tobacco/nicotine status: never used tobacco/nicotine Second hand smoke exposure: No Alcohol intake: current Alcohol intake frequency: holidays/special occasions only Physical Exam Const: COMMON NORMALS: patient oriented x3 GENERAL APPEARANCE: ill appearing HENMT: COMMON NORMALS: normocephalic and atraumatic HEAD & SCALP: normocephalic and atraumatic Eye: COMMON NORMALS: conjunctivae normal CONJUNCTIVA: Yes conjunctivae normal Neck/C-Spine: COMMON NORMALS: full ROM and supple Chest: COMMONS NORMALS: normal inspection of the chest Resp: COMMON NORMALS: normal respiratory effort, No retractions, No use of accessory muscles and clear to auscultation bilaterally AUSCULTATION: clear to auscultation bilaterally Cardio: COMMON NORMALS: regular rhythm and No murmurs present (Cardio) RATE: tachycardic RHYTHM: regular rhythm GI: COMMON NORMALS: Normal to inspection, nondistended, normoactive bowel sounds present, Soft to palpation, non-tender and no masses PALPATION: Yes Soft to palpation Extremity: COMMON NORMALS: normal to inspection and full ROM Neuro: COMMON NORMALS: patient oriented x3, moves all extremities and no focal motor deficits Psych: COMMON NORMALS: mental status grossly normal, Normal thought process present and cooperative THOUGHT PROCESS: Normal thought process present Skin: COMMON NORMALS: no rashes or lesions noted and no wounds GENERAL SKIN EXAM: no rashes or lesions noted Course Vital Signs: Vital signs: Vital Signs Temperature 98.5 F 12/15/24 17:13 Pulse Rate 106 H 12/15/24 18:41 Respiratory Rate 18 12/15/24 18:41 Blood Pressure 158/80 12/15/24 18:41 Pulse Oximetry 93 12/15/24 18:41 Oxygen Delivery Me thod Room Air 12/15/24 18:41 MDM - Nausea/Vomiting/Diarrhea Medical Decision Making Patient presents here vomiting has a history of type 1 diabetes and was hyperglycemic. Differential included DKA patient has no ketones ABG here is normal he is hyperglycemic but no signs of diabetic ketoacidosis. He does have acute cystitis along with likely some dehydration. He has no signs of being septic his white count was normal his blood pressures been normal while here. Have given him IV fluids along with insulin did treat his UTI with Rocephin. I went over his lab results with him and his imaging his EKG here showed sinus tach heart rate [address] elevation QRS 82 QTc 361. His heart rate has improved here with fluids I spoke to hospitalist Dr. fischer and will admit at this time. Medical Records I reviewed the patient's medical records. Lab Data I reviewed the patient's lab results. 12/15/24 18:00 12/15/24 18:00 Radiology Impressions Chest X-Ray 12/15/24 17:19 IMPRESSION: 1. Stable left base streaky linear opacities characteristic of atelectasis or postinflammatory parenchymal scarring, less likely developing pneumonia. 2. Expiratory chest x-ray. 3. Moderate age-appropriate degenerative spinal changes, with other chronic/non-acute findings as described above. Laboratory Results WBC 9.76 10^3/uL (3.29-11.43) 12/15/24 18:00 RBC 3.89 10^6/uL (3.85-5.65) 12/15/24 18:00 Hgb 12.60 g/dL (11.27-16.99) 12/15/24 18:00 Hct 38.0 % (37-53) 12/15/24 18:00 MCV 97.7 fl (82-101) 12/15/24 18:00 MCH 32.4 pg (27-33) 12/15/24 18:00 MCHC 33.2 g/dL (30-55) 12/15/24 18:00 RDW 14.2 % (12.1-15.1) 12/15/24 18:00 Plt Count 176 10^3/cmm (157-399) 12/15/24 18:00 MPV 11.4 fL (7.4-10.4) H 12/15/24 18:00 Lymph % (Auto) Not Reportable 12/15/24 18:00 [place] % (Auto) Not Reportable 12/15/24 18:00 Lymph # (Auto) Not Reportable 12/15/24 18:00 [place] # (Auto) Not Reportable 12/15/24 18:00 Total Counted 100 (0-100) 12/15/24 18:00 Atypical Lymphs % 1.0 % (0-5) 12/15/24 18:00 Absolute Neutrophils 7.7 10^3/cmm (1.4-6.5) H 12/15/24 18:00 Segmented Neutrophils 60 % 12/15/24 18:00 Band Neutrophils 19.0 % 12/15/24 18:00 Absolute Lymphocytes 0.8 10^3/cmm (1.2-3.4) L 12/15/24 18:00 Lymphocytes (Manual) 7 % 12/15/24 18:00 Monocytes (Manual) 13.0 % 12/15/24 18:00 Absolute Monocytes 1.3 10^3/cmm (0.1-0.6) H 12/15/24 18:00 Eosinophils (Manual) 0 % 12/15/24 18:00 Absolute Eosinophils 0.0 10^3/cmm (0.0-0.7) 12/15/24 18:00 Basophils (Manual) 0.0 % 12/15/24 18:00 Absolute Basophils 0.0 10^3/cmm (0.0-0.2) 12/15/24 18:00 Dohle Bodies Trace 12/15/24 18:00 Platelet Estimate Normal (Normal) 12/15/24 18:00 PT 13.10 SECONDS (12.1-14.9) 12/15/24 18:00 INR 0.93 (0.8-1.2) 12/15/24 18:00 Specimen Type Arterial 12/15/24 17:30 Sample Site Radial, left 12/15/24 17:30 ABG pH 7.43 (7.35-7.45) 12/15/24 17:30 ABG pCO2 31.3 mmHg (35-45) L 12/15/24 17:30 ABG pO2 67.6 mmHg (80.0-100.0) L 12/15/24 17:30 ABG PO2/FiO2 Ratio 321 12/15/24: ABG HCO3 20.9 mmol/L (22-26) L 12/15/24 17:30 ABG Base Excess -2.4 mmol/L (-2.0-2.0) L 12/15/24 17:30 Rosas Test Pos 12/15/24 17:30 Hematocrit 42.5 % (42-52) 12/15/24 17:30 Hgb O2 Saturation 92.0 % (95-100) L 12/15/24 17:30 Carboxyhemoglobin 1.1 %THgb (0.4-20.1) 12/15/24 17: Methemoglobin 1.2 % (0.4-1.5) 12/15/24 17:30 Total Hemoglobin 13.9 g/dL (14-18) L 12/15/24 17:30 O2 Delivery Device Room air 12/15/24 17:30 FiO2 21.0 % 12/15/24 17:30 Roll Shop Supervisor MARIELOS Valdez 12/15/24 17:30 Sodium 135 mmol/L (136-145) L 12/15/24 18:00 Potassium 4.4 mmol/L (3.5-5.1) 12/15/24 18:00 Chloride 89 mmol/L (98-107) L 12/15/24 18:00 Carbon Dioxide 21 mmol/L (22-29) L 12/15/24 18:00 Anion Gap 29.4 (5-19) H 12/15/24 18:00 BUN 16 mg/dL (8-23) 12/15/24 18:00 Creatinine 1.1 mg/dL (0.7-1.2) 12/15/24 18:00 GFR Calculation 67.6 mL/min (90-130) L 12/15/24 18:00 Glucose 484 mg/dL (65-115) H 12/15/24 18:00 Calculated Osmolality 303 mOsm/kg (285-295) H 12/15/24 18:00 Calcium 9.1 mg/dL (8.5-10.5) 12/15/24 18:00 Magnesium 1.9 mg/dL (1.7-2.3) 12/15/24 18:00 Total Bilirubin 0.6 mg/dL (0.15-1.2) 12/15/24 18:00 AST 28 U/L (0-40) 12/15/24 18:00 ALT 21 U/L (0-41) 12/15/24 18:00 Alkaline Phosphatase 253 U/L (40-130) H 12/15/24 18:00 Total Protein 6.8 g/dL (6.6-8.7) 12/15/24 18:00 Albumin 3.3 g/dL (3.5-5.2) L 12/15/24 18:00 Globulin 3.5 g/dL (1.3-4.6) 12/15/24 18:00 Urine Color Yellow (Yellow) 12/15/24 18:22 Urine Appearance Cloudy (CLEAR) A 12/15/24 18:22 Urine pH 5.5 (5-7) 12/15/24 18:22 Ur Specific [place] 1.026 (1.005-1.030) 12/15/24 18:22 Urine Protein 1+ (Negative) A 12/15/24 18:22 Urine Glucose (UA) 3+ (Normal) H 12/15/24 18:22 Urine Ketones 2+ (Negative) H 12/15/24 18:22 Urine Blood 2+ (Negative) A 12/15/24 18: Urine Nitrate Positive (Negative) A 12/15/24 18: Urine Bilirubin Negative (Negative) 12/15/24 18: Urine Urobilinogen 1.0 mg/dL (Negative) 12/15/24 18:22 Ur Leukocyte Esterase Trace (Negative) A 12/15/24 18: Urine RBC 11-20 /hpf (0-2) H 12/15/24 18:22 Urine WBC 51-100 /hpf (0-5) H 12/15/24 18:22 Ur Squamous Epith Cells 6-10 /hpf (0-5) 12/15/24 18:22 Amorphous Sediment Not Reportable 12/15/24 18:22 Urine Bacteria 2+ /hpf (NONE) H 12/15/24 18:22 Hyaline Casts 0.81 /lpf 12/15/24 18:22 Serum Ketones Negative (Negative) 12/15/24 18:00 Influenza A (PCR) Negative (Negative) 12/15/24 18:22 Influenza Type B (PCR) Negative (Negative) 12/15/24 18:22 RSV (PCR) Negative (Negative) 12/15/24 18:22 SARS-CoV-2 (PCR) Negative (Negative) 12/15/24 18:22 All radiology interpretation(s) finalized by discharge EKG Data EKG 1: I personally reviewed and interpreted this EKG as follows: EKG interpretation date: 12/15/24 EKG interpretation time: 17:56 Interpretation: sinus tach hr [address] elevation qrs 82 qtc 361 Discharge Plan Discharge Patient Disposition: Admitted As Inpatient Clinical Impression: Acute cystitis, Vomiting, Hyperglycemia Condition: Stable Coding Level of Care Code ED Waiter/Waitress Head for Chg Cam
[2024-12-15 17:41] LABS: ABG PCO2 31.3 mmHg (35-45); ABG PH Result 7.43 (7.35-7.45); Arterial Blood Gas Hematocrit 42.5 % (42-52); Blood Gas Allen Test Pos; Blood Gas Operator Identificat WALCI; Blood Gas Sample Site Radial, left; Blood Gas Sample Type Arterial; Carboxyhemoglobin 1.1 %THgb (0.4-20.1); HCO3 ABG 20.9 mmol/L (22-26); Methemoglobin 1.2 % (0.4-1.5); PO2 ABG 67.6 mmHg (80.0-100.0); PO2 FiO2 Ratio Arterial Blood 321
[2024-12-15] MEDS: labetalol 5 mg/mL SDV 20mL 10 MG IVP (18:15)
[2024-12-15 18:29] LABS: Glucose Urine UA 3+ (Normal); Nitrate Urine Positive (Negative); Specific Gravity, Urine 1.026 (1.005-1.030)
[2024-12-15 18:32] LABS: Hematocrit 38.0 % (37-53); Hemoglobin 12.60 g/dL (11.27-16.99); Mean Corpuscular HGB Conc 33.2 g/dL (30-55); Mean Corpuscular Hemoglobin 32.4 pg (27-33); Mean Corpuscular Volume 97.7 fl (82-101); Platelet Count 176 10^3/cmm (157-399); Red Blood Count 3.89 10^6/uL (3.85-5.65); White Blood Count 9.76 10^3/uL (3.29-11.43)
[2024-12-15 18:34] LABS: Add Urine Microscopic? YES
[2024-12-15 19:01] LABS: Alanine Aminotransferase 21 U/L (0-41); Albumin Level 3.3 g/dL (3.5-5.2); Alkaline Phosphatase 253 U/L (40-130); Anion Gap 29.4 (5-19); Aspartate Amino Transferase 28 U/L (0-40); Blood Urea Nitrogen 16 mg/dL (8-23); Calcium 9.1 mg/dL (8.5-10.5); Carbon Dioxide 21 mmol/L (22-29); Chloride 89 mmol/L (98-107); Creatinine Clr Calc Pharmacy 84.4589; Globulin 3.5 g/dL (1.3-4.6); Glucose 484 mg/dL (65-115); Magnesium 1.9 mg/dL (1.7-2.3); Osmolality Calculated 303 mOsm/kg (285-295); Potassium 4.4 mmol/L (3.5-5.1); Sodium 135 mmol/L (136-145); Total Protein 6.8 g/dL (6.6-8.7)
[2024-12-15 19:02] LABS: INR 0.93 (0.8-1.2); Prothrombin Time 13.10 SECONDS (12.1-14.9)
[2024-12-15 19:04] LABS: Respiratory Syncytial Virus Ce NEGATIVE (Negative); SARS-CoV-2 PCR NEGATIVE (Negative)
[2024-12-15 19:06] LABS: Ketone (Acetest) Serum Negative (Negative)
[2024-12-15 19:17] LABS: Slide Review Slide Review Perform
[2024-12-15] MEDS: INSULIN REGULAR IN 0.9 % NACL 100 UNIT/100 ML BAG 11 UNIT IV ×2 (19:37→22:49)
[2024-12-15] MEDS: cefTRIAXone 1,000 mg SDV 1000 MG IVP (20:14)
[2024-12-15 20:16] LABS: Absolute Segmented Neutrophil 5.9 10/cmm (1.6-7.1); Atypical Lymphs 1.0 % (0-5); Band Neutrophils Absolute 1.9 10^3/cmm (0.0-1.2); Total Cells Counted 100 (0-100)
[2024-12-15 20:17] LABS: Dohle Bodies Trace
--- NOTE | 2024-12-15 20:45 | CTR_ITS ---
PROCEDURE INFORMATION: Exam: CT Abdomen And Pelvis Without Contrast Exam date and time: 12/15/2024 9:48 PM Age: 64 years old Clinical indication: Fever and nausea and vomiting; Fever with n/v and dysuria TECHNIQUE: Imaging protocol: Computed tomography of the abdomen and pelvis without contrast. Radiation optimization: All CT scans at this facility use at least one of these dose optimization techniques: automated exposure control; mA and/or kV adjustment per patient size (includes targeted exams where dose is matched to clinical indication); or iterative reconstruction. COMPARISON: CT abdomen pelvis w con* [id number] 11/25/2024 5:02 PM RADIATION DOSE METRICS: Total DLP (mGy-cm): 1098.71 FINDINGS: Lungs: There are hypoventilatory changes dependent lungs. Coronary arteries: Coronary artery calcifications demonstrated Liver: Liver is enlarged measuring 19 cm. Gallbladder and biliary ducts: Unremarkable. No calcified stones. No ductal dilation. Pancreas: Unremarkable. No ductal dilation. Spleen: The spleen is enlarged measuring 13 cm. Adrenal glands: Normal. No mass. Kidneys and ureters: Kidneys demonstrate thickening of the renal pelvis ureters and urinary bladder wall as well as some stranding surrounding the prostate gland. Correlate with urinalysis to exclude infection. There are findings of a 3 mm nonobstructing calculi in the right midpole and left lower pole collecting system Stomach and bowel: Bowel demonstrates no obstruction Appendix: The appendix is normal Intraperitoneal space: Unremarkable. No free air. No significant fluid collection. Vasculature: Unremarkable. No abdominal aortic aneurysm. Lymph nodes: Unremarkable. No enlarged lymph nodes. Urinary bladder: See Kidneys and ureters finding. Reproductive: Unremarkable as visualized. Bones/joints: There is a compression fracture deformity superior endplate L1 stable. Soft tissues: There is a large fat containing umbilical hernia redemonstrated. Other findings: There is no obstructing calculi present CT/CT kidney stone [id number] IMPRESSION: Thickening of the renal pelvis ureter and urinary bladder wall as well as inflammation of the prostate correlate with urinalysis to exclude infection. Findings of nonobstructing caliceal renal calculi largest 3 mm right midpole. Hepatosplenomegaly. Large fat containing umbilical hernia
[2024-12-15] MEDS: insulin regular-human 100 units/1 mL 10 UNIT IVP (22:43)
[2024-12-15] MEDS: heparin 5,000 unit/mL INJ 1 mL 5000 UNIT SUBCUT (22:44)
[2024-12-16] VITALS (61 sets, daily range): BP systolic 114–189; BP diastolic 61–114; PULSE 84–127; RESP 10–27; TEMP 36.8–38.6; O2SAT 89–99
[2024-12-16 00:41] LABS: Anion Gap 31.1 (5-19); Blood Urea Nitrogen 18 mg/dL (8-23); Calcium 8.8 mg/dL (8.5-10.5); Carbon Dioxide 16 mmol/L (22-29); Chloride 90 mmol/L (98-107); Creatinine Clr Calc Pharmacy 77.4206; Glucose 457 mg/dL (65-115); Osmolality Calculated 298 mOsm/kg (285-295); Potassium 4.1 mmol/L (3.5-5.1); Sodium 133 mmol/L (136-145)
[2024-12-16 00:42] LABS: Magnesium 1.9 mg/dL (1.7-2.3)
--- NOTE | 2024-12-16 01:24 | PC.NURSE ---
VERBAL ORDER FROM HOSPITALIST TO DECREASE INSULIN TO 11 UNITS/HR UNTIL BMP IS RESULTED.
[2024-12-16 02:18] LABS: Anion Gap 28.7 (5-19); Blood Urea Nitrogen 18 mg/dL (8-23); Calcium 8.8 mg/dL (8.5-10.5); Carbon Dioxide 18 mmol/L (22-29); Chloride 92 mmol/L (98-107); Creatinine Clr Calc Pharmacy 84.4589; Glucose 276 mg/dL (65-115); Osmolality Calculated 292 mOsm/kg (285-295); Potassium 3.7 mmol/L (3.5-5.1); Sodium 135 mmol/L (136-145)
[2024-12-16] MEDS: dextrose 5%-sod chloride 0.45% 1,000 ML 125 ML IV (02:45)
--- NOTE | 2024-12-16 02:51 | PM.HP ---
Providers/Chief Complaint Admitting Physician: Riya Olivo MD Primary Care Provider: Harrison Hill MD Chief Complaint: diabetic issues History of Present Illness As per the previous notes and the patient: Case Morin is a 64 year old male With past medical history of diabetes and DKA, left lower extremity diabetic ulcer currently following with the wound care, sleep apnea on CPAP at night, hypothyroidism, asthma, depression, GERD, arthritis, hypertension came with nausea and vomiting with abdominal pain from the last 1 to 2 days. The patient reported having increased urination. And also associated burning micturition and dysuria. The patient felt fatigued and could not hold anything down his stomach. He also reported burning sensation. And mild dizziness. Did not report any chest pain chest pressure orthopnea or PND. No history of any leg swellings or skin rash. Weight loss or night sweats. The patient is compliant with his medications and reported his sugars are more or less controlled. The patient was found to have labs suggestive of DKA, however his pH was normal, and UA was suggestive of UTI. Rest of review of system unremarkable Review of Systems General: Reports: 10 or more systems reviewed and unremarkable except in HPI and below Medications/Allergies Home Medications ?Medication ?Instructions ?Recorded ?Confirmed ?Last Taken ?Type cholecalciferol (vitamin D3) 10 10 mcg PO DAILY 04/01/20 12/04/24 Unknown History mcg (400 unit) capsule fexofenadine 180 mg tablet 180 mg PO DAILY 04/01/20 12/04/24 Unknown History Diabetic shoes with 3 inserts #1 ea 08/26/20 12/04/24 Unknown Rx ascorbate calcium (vitamin C) 500 500 mg PO DAILY 90 days #90 tabs 09/15/21 12/04/24 Unknown Rx mg tablet aspirin 81 mg tablet,delayed 81 mg PO DAILY PRN Pain 11/06/21 12/04/24 Unknown History release (Adult Aspirin Regimen) chromium picolinate 1,000 mcg 1,000 mcg PO DAILY 11/06/21 12/04/24 Unknown History tablet latanoprost 0.005 % eye drops 1 drp ophthalmic (eye) DAILY 11/06/21 12/04/24 Unknown History lutein 6 mg capsule 6 mg PO DAILY 11/06/21 12/04/24 Unknown History pen needle, diabetic 32 gauge x #400 ea 12/10/23 12/04/24 Unknown Rx (TechLITE Pen Needle) dulaglutide 4.5 mg/0.5 mL 4.5 mg (0.5 mL) SUBCUT Q7D #2 mL 03/07/24 12/04/24 Unknown Rx subcutaneous pen injector (Trulicity) blood-glucose transmitter (Dexcom #1 ea 09/07/24 12/04/24 Unknown Rx G6 Transmitter device) insulin lispro 100 unit/mL See Rx Instructions .Route 09/29/24 12/04/24 Unknown Rx subcutaneous pen .COMPLEX #90 mL zolpidem 10 mg tablet 10 mg PO DAILY #30 tabs 10/31/24 12/04/24 Unknown Rx blood-glucose sensor (Dexcom G6 #9 ea 11/17/24 12/04/24 Unknown Rx Sensor device) glucagon 1 mg solution for 1 mg SUBCUT Q20M PRN hypoglycemia 11/20/24 12/04/24 Unknown Rx injection (Glucagon Emergency Kit) #1 ea atorvastatin 20 mg tablet 20 mg PO DAILY 11/24/24 12/04/24 Unknown History collagenase clostridium histo. 250 1 applic topical DAILY PRN open 11/24/24 12/04/24 Unknown History unit/gram topical ointment (Santyl) wound fluticasone propionate 50 2 spray intranasal DAILY 11/24/24 12/04/24 Unknown History mcg/actuation nasal spray,suspension furosemide 40 mg tablet 40 mg PO DAILY 11/24/24 12/04/24 Unknown History levothyroxine 200 mcg tablet 200 mcg PO DAILY 11/24/24 12/04/24 Unknown History metoprolol tartrate 50 mg tablet 50 mg PO BID 11/24/24 12/04/24 Unknown History sertraline 100 mg tablet 150 mg PO DAILY 11/24/24 12/04/24 Unknown History insulin glargine 100 unit/mL (3 35 unit (0.35 mL) SUBCUT DAILY 30 11/28/24 12/04/24 Unknown Rx mL) subcutaneous pen (Lantus days #0 mL Solostar U-100 Insulin) acetone (urine) test (Ketone Urine #100 ea 12/04/24 12/04/24 Unknown Rx Test strips) Allergies Allergy/AdvReac Type Severity Reaction Status Date / Time sulfamethoxazole (From Allergy Severe rash Verified 10/10/24 13:13 Bactrim) trimethoprim (From Bactrim) Allergy Severe rash Verified 10/10/24 13:13 PFSH Acute PFSH: Medical History (Updated 12/16/24 @ 03:05 by Riya Olivo MD) Knee osteoarthritis Arthritis Hypertension Diabetes type I Acid reflux Depression Asthma Hypothyroidism Polyp in nasopharynx Sleep apnea History of femoral angiogram Surgical History H/O arthroscopic knee surgery Family History Mother Cancer Diabetes Hypertension Hyperlipidemia Hypothyroidism Father Stroke Hypertension Hyperlipidemia Arthritis Social History Smoking and tobacco/nicotine status: never used tobacco/nicotine Second hand smoke exposure: No Alcohol intake: current Alcohol intake frequency: holidays/special occasions only Vitals/I&O/Wt Last Vital Signs Temp 98.5 F 12/15/24 17:13 Pulse 120 H 12/16/24 00:00 Resp 18 12/15/24 22:00 BP 131/84 12/16/24 00:00 Pulse Ox 98 12/16/24 00:00 O2 Del Method Room Air 12/16/24 00:00 12/15/24 12/15/24 12/16/24 14:59 22:59 06:59 Intake Total 1007.367 / 3016.350 Balance 1007.367 / 3016.350 Weight last 48 hrs Weight 111.13 kg Physical Exam Narrative: General: Alert and oriented, lying comfortably without any distress, having nausea on room air HEENT: Normocephalic, atraumatic, grossly unremarkable exam Cardio: Sinus tachycardia, normal S1-S2 without any murmurs, rubs, or gallops and JVD normal Respiratory: normal vascular breathing on auscultation without any wheezes, stridor, rhonchi GI: Abdomen soft, mildly tender on deep palpation diffusely in all quadrants, normoactive bowel sounds present all 4 quadrants, Neuro: Grossly intact focal neurological exam without any deficit. Alert and oriented. Behavior: Appropriate and cooperative Extremities: Adequate palpable pulses, mild trace edema Skin: Left leg diabetic ulcer following with the wound care and covered with bandage and compression stocking. Data 12/15/24 18:00 12/16/24 01:51 Micro: Microbiology 12/15/24 00:03 Blood Culture - Preliminary Blood SPECIMEN COLLECTED 12/15/24 00:05 Blood Culture - Preliminary Blood SPECIMEN COLLECTED A&P Assessment and plan 1. DKA (diabetic ketoacidosis): To continue patient on insulin protocol with insulin bolus BMP monitoring every 3-4 hours to follow the anion gap and electrolytes specially potassium and sodium Patient recent HbA1c was above 10% in December therefore shows it has been uncontrolled Monitoring and correction of electrolytes Intake and output monitoring Fluids adjustment according to blood glucose potassium and sodium levels 2. Dehydration: Continue adequate fluid resuscitation 3. Acute cystitis: Continue ceftriaxone 1 g daily Follow urine cultures and blood cultures 4. Diabetic ulcer of left lower leg: Wound care Adequate control of blood glucose 5. Hypothyroidism: TSH normal in December, patient on levothyroxine 200 mcg daily and to continue after reconciliation 6. Diabetes type I: Patient currently in DKA, to manage as per DKA protocol And later to adjust his insulin regimen postdischarge follow-up with endocrinology 7. Hyperlipidemia: Patient on statins 20 mg daily and to continue after reconciliation 8. Depression: Patient on sertraline, zolpidem at home medication and resume after reconciliation and resolution of DKA 9. Acid reflux: Continue PPI daily 10. Asthma: DuoNebs as needed Currently not in exacerbation 11. Sleep apnea: CPAP at night. PDMP PDMP Reviewed: Not Reviewed Attestations Medical Necessity Statement*: Case Morin's hospital stay will require greater than 2 midnights for management of DKA and acute cystitis Time Spent in Patient Care: 16 - 35 minutes (>than 50% of time spent in counselling and/or direct pt care on unit). Critical Care Time: The high probability of a clinically significant, sudden or life threatening deterioration, as referenced in this documentation, required my full and direct attention, intervention and personal management. The critical care time shown is in addition to time spent performing any reported separately billable procedures and includes the following: [x] Data and vital sign review and interpretation [x] Patient assessment, examination and intervention [x] Medication orders and management [x] Patient/Family updates as able [x] Care Coordination and Documentation. Other Attestations: Patient condition has been discussed at length with the patient/family, I have independently reviewed the chart labs imaging/diagnostics/EKG. the goals of care and code status with the patient/family/NOK/legal enrollment representative, and documented accordingly. The patient/family has been informed about the current condition and further plan of care. Agreed with the plan of care and understood without any language barrier. Every effort was made to ensure accuracy of field captain. Any obvious errors or omissions should be clarified with the author of the document. Coding Level of Care Code Acute Code for Chg Fwd Diagnoses DKA (diabetic ketoacidosis) E11.10 Dehydration E86.0 Acute cystitis N30.00 Diabetic ulcer of left lower leg E11.622; L97.929 Hypothyroidism E03.9 Diabetes type I E10.9 Hyperlipidemia E78.5 Depression F32.A Acid reflux K21.9 Asthma J45.909 Sleep apnea G47.30
--- NOTE | 2024-12-16 04:39 | PC.NURSE ---
[place] Patient incontinent. Dr. Olivo at bedside; orders received for augustine catheter insertion, cbc with morning labs, and VBG Q4H with other timed labs.
[2024-12-16] MEDS: fluticasone nasal spray 16gm Btl 2 SPRAY INTRANASAL (05:15)
[2024-12-16] MEDS: ATORVASTATIN 20 MG TABLET PO (05:15)
[2024-12-16 05:31] LABS: Base Excess VBG 3.3 mmol/L (-3.0-3.0); Blood Gas Operator Identificat JDB; Blood Gas Sample Site Not specified; Blood Gas Sample Type Venous; HCO3 VBG 27.9 mmol/L (24-28); PCO2 VBG 41.4 mmHg (41-51); PO2 VBG 43.8 mmHg (25-40); Venous Blood Gas Hematocrit 39.0 % (42-52); pH VBG 7.44 (7.32-7.42)
--- NOTE | 2024-12-16 06:00 | PC.NURSE ---
[facility] Dr. Olivo contacted unit; verbal orders received to discontinue D51/2NS, start D5NS at 150 ml/hr, and administer 20 meq KCL PO once.
[2024-12-16 06:08] LABS: Hematocrit 37.3 % (37-53); Hemoglobin 12.10 g/dL (11.27-16.99); Mean Corpuscular HGB Conc 32.4 g/dL (30-55); Mean Corpuscular Hemoglobin 32.7 pg (27-33); Mean Corpuscular Volume 100.8 fl (82-101); Nucleated Red Blood Cells % 0 %; Platelet Count 173 10^3/cmm (157-399); Red Blood Count 3.70 10^6/uL (3.85-5.65); White Blood Count 10.44 10^3/uL (3.29-11.43)
[2024-12-16 06:30] LABS: Magnesium 1.8 mg/dL (1.7-2.3)
[2024-12-16 06:31] LABS: Anion Gap 21.8 (5-19); Blood Urea Nitrogen 18 mg/dL (8-23); Calcium 8.4 mg/dL (8.5-10.5); Carbon Dioxide 24 mmol/L (22-29); Chloride 95 mmol/L (98-107); Creatinine Clr Calc Pharmacy 95.6798; Glucose 235 mg/dL (65-115); Osmolality Calculated 293 mOsm/kg (285-295); Potassium 3.8 mmol/L (3.5-5.1); Sodium 137 mmol/L (136-145)
[2024-12-16] MEDS: dextrose 5%-sod chloride 0.9% 1,000 ML 150 ML IV ×2 (07:08→14:21)
[2024-12-16 07:48] LABS: Ketone (Acetest) Serum Negative (Negative)
--- NOTE | 2024-12-16 08:25 | PC.PHAR ---
Last med rec completed via pts pharmacy due to pt being unable to verify his own meds. Pt is on a vent and can't verify his meds today. Last discharge 11/28/24-pts' Meloxicam was dc'd. Lantus Solostar last fill 06/21/24 104ds and Trulicity 4.5/0.5ml last fill 07/31/24 28ds are in question due to old fill dates.
[2024-12-16] MEDS: vancomycin 1,750 MG/350 ML PIGGYBACK 175 MG IV ×2 (10:04→22:05)
[2024-12-16] MEDS: heparin 5,000 unit/mL INJ 1 mL 5000 UNIT SUBCUT ×2 (10:04→22:09)
[2024-12-16 11:01] LABS: Anion Gap 17.7 (5-19); Blood Urea Nitrogen 16 mg/dL (8-23); Calcium 8.4 mg/dL (8.5-10.5); Carbon Dioxide 25 mmol/L (22-29); Chloride 95 mmol/L (98-107); Creatinine Clr Calc Pharmacy 106.2457; Glucose 263 mg/dL (65-115); Magnesium 1.8 mg/dL (1.7-2.3); Osmolality Calculated 288 mOsm/kg (285-295); Potassium 3.7 mmol/L (3.5-5.1); Sodium 134 mmol/L (136-145)
[2024-12-16] MEDS: INSULIN REGULAR IN 0.9 % NACL 100 UNIT/100 ML BAG IV (13:06)
[2024-12-16 14:48] LABS: Blood Urea Nitrogen 16 mg/dL (8-23); Calcium 8.6 mg/dL (8.5-10.5); Carbon Dioxide 26 mmol/L (22-29); Chloride 97 mmol/L (98-107); Creatinine Clr Calc Pharmacy 106.2457; Glucose 285 mg/dL (65-115); Osmolality Calculated 292 mOsm/kg (285-295); Sodium 135 mmol/L (136-145)
[2024-12-16 14:50] LABS: Anion Gap 15.9 (5-19); Potassium 3.9 mmol/L (3.5-5.1)
[2024-12-16] MEDS: insulin glargine 100 units/1 mL 35 UNIT SUBCUT (15:17)
--- NOTE | 2024-12-16 15:22 | PC.NURSE ---
verified insulin doses per pt and home meds also verified with prior discharge meds ,, given after checking dose with other nurse
[2024-12-16 15:23] LABS: Alcohol Level < 10 mg/dL (0-10)
--- NOTE | 2024-12-16 15:43 | PM.MISC ---
Miscellaneous Note Purpose of Documentation: Patient with resolving DKA. Admitted today following up on patient on rounds. Patient doing okay without risk for impending DTs from alcoholism Note: Will follow-up to transition patient at this time. Patient is tachycardic in the 120s and this is related to impending DTs patient finally admits that he drinks daily vodka. Last time drank was 48 hours ago. Patient is at risk
[2024-12-16 16:20] LABS: Hematocrit 34.5 % (37-53); Hemoglobin 11.30 g/dL (11.27-16.99); Mean Corpuscular HGB Conc 32.8 g/dL (30-55); Mean Corpuscular Hemoglobin 32.5 pg (27-33); Mean Corpuscular Volume 99.1 fl (82-101); Platelet Count 152 10^3/cmm (157-399); Red Blood Count 3.48 10^6/uL (3.85-5.65); White Blood Count 7.94 10^3/uL (3.29-11.43)
[2024-12-16 16:41] LABS: Alanine Aminotransferase 41 U/L (0-41); Albumin Level 2.3 g/dL (3.5-5.2); Alkaline Phosphatase 248 U/L (40-130); Anion Gap 18.8 (5-19); Aspartate Amino Transferase 156 U/L (0-40); Blood Urea Nitrogen 15 mg/dL (8-23); Calcium 8.1 mg/dL (8.5-10.5); Carbon Dioxide 20 mmol/L (22-29); Chloride 99 mmol/L (98-107); Creatinine Clr Calc Pharmacy 106.2457; Globulin 3.5 g/dL (1.3-4.6); Glucose 261 mg/dL (65-115); Osmolality Calculated 288 mOsm/kg (285-295); Potassium 3.8 mmol/L (3.5-5.1); Sodium 134 mmol/L (136-145); Total Protein 5.8 g/dL (6.6-8.7)
[2024-12-16] MEDS: thiamine 100 mg/mL 2mL SDV IM (16:44)
[2024-12-16 16:57] LABS: Absolute Segmented Neutrophil 6.3 10/cmm (1.6-7.1); Band Neutrophils Absolute 0.5 10^3/cmm (0.0-1.2); Total Cells Counted 100 (0-100)
[2024-12-16 16:58] LABS: Atypical Lymphs 1.0 % (0-5)
--- NOTE | 2024-12-16 20:29 | PC.NURSE ---
Contacted Dr. Olivo in reference to patient's currently running D5NS, and MAR orders for NS@150. Advised Dr. Olivo of rising BG, most recently 243. Received orders to DC both fluids if patient is taking oral intake. Add moderate dose sliding scale.
[2024-12-16] MEDS: cefTRIAXone 1,000 mg SDV 1000 MG IVP (22:05)
[2024-12-17] VITALS (23 sets, daily range): BP systolic 136–189; BP diastolic 85–108; PULSE 80–119; RESP 18–26; TEMP 36.1–37.3; O2SAT 89–95
--- NOTE | 2024-12-17 01:29 | P.EN_ITS ---
Event Note Event Note: Patient found to have thrombocytopenia. He has thrombocytopenia in the past as well. No obvious source of bleeding Heparin 5000 units 3 times daily to continue considering the risk and benefits. Continue to monitor platelets if further dropping then consider stopping heparin and putting him on SCDs Could be related to his DKA/sepsis Event Notes Attestations Time Spent in Patient Care: less than 15 minutes (>than 50% of time spent in counselling and/or direct pt care on unit) .
[2024-12-17 04:35] LABS: Alanine Aminotransferase 117 U/L (0-41); Albumin Level 2.6 g/dL (3.5-5.2); Alkaline Phosphatase 352 U/L (40-130); Anion Gap 15.5 (5-19); Aspartate Amino Transferase 362 U/L (0-40); Blood Urea Nitrogen 11 mg/dL (8-23); Calcium 8.3 mg/dL (8.5-10.5); Carbon Dioxide 23 mmol/L (22-29); Chloride 99 mmol/L (98-107); Creatinine Clr Calc Pharmacy 136.6017; Globulin 3.2 g/dL (1.3-4.6); Glucose 180 mg/dL (65-115); Osmolality Calculated 282 mOsm/kg (285-295); Potassium 3.5 mmol/L (3.5-5.1); Sodium 134 mmol/L (136-145); Total Protein 5.8 g/dL (6.6-8.7)
[2024-12-17] MEDS: multivitamin therapeutic Tablet 1 TAB PO (05:07)
[2024-12-17] MEDS: ATORVASTATIN 20 MG TABLET PO (05:08)
[2024-12-17] MEDS: fluticasone nasal spray 16gm Btl 2 SPRAY INTRANASAL (05:09)
--- NOTE | 2024-12-17 08:37 | PM.DCS ---
Discharge Providers Date of Admission: 12/15/24 20:21 Date of Discharge: December 17, 2024 Attending Provider at Admission: Riya Olivo MD Attending Provider at Discharge: Alicja Aguilar MD Primary Care Provider: Harrison Hill MD Diagnoses at Discharge Discharge Diagnosis 1. DKA (diabetic ketoacidosis): 2. Dehydration: 3. Acute cystitis: 4. Diabetic ulcer of left lower le. Hypothyroidism, unspecified type: 6. Type 1 diabetes mellitus without complication: 7. Mixed hyperlipidemia: 8. Depression: 9. Acid reflux: 10. Asthma: 11. Sleep apnea: Reason for Visit Reason for Visit: diabetic issues Hospital Course Hospital Course Case Morin is a 64 year old male With past medical history of diabetes and DKA, left lower extremity diabetic ulcer currently following with the wound care, sleep apnea on CPAP at night, hypothyroidism, asthma, depression, GERD, arthritis, hypertension came with nausea and vomiting with abdominal pain from the last 1 to 2 days. The patient reported having increased urination. And also associated burning micturition and dysuria. The patient felt fatigued and could not hold anything down his stomach. He also reported burning sensation. And mild dizziness. Did not report any chest pain chest pressure orthopnea or PND. No history of any leg swellings or skin rash. Weight loss or night sweats. The patient is compliant with his medications and reported his sugars are more or less controlled. The patient was in DKA, with acute cystitis and pneumonia. Patient was treated with azithromycin and ceftriaxone antibiotics and for the DKA this was treated with DKA protocol insulin drip and anion was closed as of yesterday and also into this morning with further optimization of glycemic level that had now gone on the 200 fasting. Patient symptomatology all resolved at this time patient home insulin was no change and was transitioned to the home insulin with great effect. Patient had said that for the most part he was not even taking his insulin at home and this was why there was not that much of any change in the medication and the medication had optimize patient care off of insulin drip. Patient is now on antibiotics of Augmentin which is comparable to ceftriaxone patient is on for UTI and possible pneumonia. Patient had done well and will be discharged to follow-up with the PCP within the next 1 week. Patient should keep a record of the Accu-Cheks that would be ACHS. And patient should take this reading to the follow-up with the PCP Physical Exam Narrative: Patient looks well in no apparent distress HEENT normocephalic/atraumatic neck neck is supple cardiovascular heart rate is regular lungs are pretty much clear abdomen soft nontender nondistended unremarkable extremities are intact no edema has good pulses neurology has no focality lab studies lab studies reviewed and noted. Urinary Catheter Management: Jacome: Cath Placed During This Visit: yes Reason for Continuing Indwelling Catheter: Other Urinary Catheter Date of Insertion: 12/16/24 Urinary Catheter Time of Insertion: 04:00 Discharge Data Studies Completed and Pending Completed Studies During Hospitalization Category Date Time Status CT abdomen renal stone [CT kidney stone [id number]] Stat Cat Scan 12/15/24 20:45 Completed XR chest 1V portable [id number] Stat Exams 12/15/24 17:19 Completed Pending at discharge Category Date Time Status Blood Culture Stat Lab 12/15/24 00:05 Results MRSA PCR OZH (swab) Routine Lab 12/15/24 23:00 Ordered Urine Culture Stat Lab 12/15/24 18:22 Results Radiology Impressions Chest X-Ray 12/15/24 17:19 IMPRESSION: 1. Stable left base streaky linear opacities characteristic of atelectasis or postinflammatory parenchymal scarring, less likely developing pneumonia. 2. Expiratory chest x-ray. 3. Moderate age-appropriate degenerative spinal changes, with other chronic/non-acute findings as described above. Abdomen/Pelvis CT 12/15/24 20:45 IMPRESSION: Thickening of the renal pelvis ureter and urinary bladder wall as well as inflammation of the prostate correlate with urinalysis to exclude infection. Findings of nonobstructing caliceal renal calculi largest 3 mm right midpole. Hepatosplenomegaly. Large fat containing umbilical hernia Laboratory Results WBC 7.94 10^3/uL (3.29-11.43) 12/16/24 16:04 RBC 3.48 10^6/uL (3.85-5.65) L 12/16/24 16:04 Hgb 11.30 g/dL (11.27-16.99) 12/16/24 16:04 Hct 34.5 % (37-53) L 12/16/24 16:04 MCV 99.1 fl (82-101) 12/16/24 16:04 MCH 32.5 pg (27-33) 12/16/24 16:04 MCHC 32.8 g/dL (30-55) 12/16/24 16:04 RDW 14.5 % (12.1-15.1) 12/16/24 16:04 Plt Count 152 10^3/cmm (157-399) L 12/16/24 16:04 MPV 11.3 fL (7.4-10.4) H 12/16/24 16:04 Neut % (Auto) 80.0 % 12/16/24 05:24 Lymph % (Auto) 4.8 % 12/16/24 05:24 Weston % (Auto) 13.1 % 12/16/24 05:24 Eos % (Auto) 0.0 % 12/16/24 05:24 Baso % (Auto) 0.4 % 12/16/24 05:24 Neut # (Auto) 8.35 10^3/uL (1.8-7.7) H 12/16/24 05:24 Lymph # (Auto) 0.5 10^3/uL (0.8-4.8) L 12/16/24 05:24 [place] # (Auto) 1.4 10^3/uL (0.2-0.9) H 12/16/24 05:24 Eos # (Auto) 0.0 10^3/uL (0.0-0.8) 12/16/24 05:24 Baso # (Auto) 0.0 10^3/uL (0.0-0.1) 12/16/24 05:24 Nucleated RBC % (auto) 0 % 12/16/24 05:24 Total Counted 100 (0-100) 12/16/24 16:04 Atypical Lymphs % 1.0 % (0-5) 12/16/24 16:04 Absolute Neutrophils 6.7 10^3/cmm (1.4-6.5) H 12/16/24 16:04 Segmented Neutrophils 79 % 12/16/24 16:04 Band Neutrophils 6.0 % 12/16/24 16:04 Absolute Lymphocytes 0.2 10^3/cmm (1.2-3.4) L 12/16/24 16:04 Lymphocytes (Manual) 2 % 12/16/24 16:04 Monocytes (Manual) 12.0 % 12/16/24 16:04 Absolute Monocytes 1.0 10^3/cmm (0.1-0.6) H 12/16/24 16:04 Eosinophils (Manual) 0 % 12/16/24 16:04 Absolute Eosinophils 0.0 10^3/cmm (0.0-0.7) 12/16/24 16:04 Basophils (Manual) 0.0 % 12/16/24 16:04 Absolute Basophils 0.0 10^3/cmm (0.0-0.2) 12/16/24 16:04 Nucleated RBCs # 0.0 /100WBC 12/16/24 05:24 Dohle Bodies Trace 12/15/24 18:00 Platelet Estimate Decreased (Normal) 12/16/24 16:04 PT 13.10 SECONDS (12.1-14.9) 12/15/24 18:00 INR 0.93 (0.8-1.2) 12/15/24 18:00 Specimen Type Venous 12/16/24 05:24 Sample Site Not specified 12/16/24 05:24 ABG pH 7.43 (7.35-7.45) 12/15/24 17:30 ABG pCO2 31.3 mmHg (35-45) L 12/15/24 17:30 ABG pO2 67.6 mmHg (80.0-100.0) L 12/15/24 17:30 ABG PO2/FiO2 Ratio 321 12/15/24 17:30 ABG HCO3 20.9 mmol/L (22-26) L 12/15/24 17:30 ABG Base Excess -2.4 mmol/L (-2.0-2.0) L 12/15/24 17:30 Rosas Test N/a 12/16/24 05:24 VBG pH 7.44 (7.32-7.42) H 12/16/24 05:24 VBG pCO2 41.4 mmHg (41-51) 12/16/24 05:24 VBG pO2 43.8 mmHg (25-40) H 12/16/24 05:24 VBG HCO3 27.9 mmol/L (24-28) 12/16/24 05:24 VBG Base Excess 3.3 mmol/L (-3.0-3.0) H 12/16/24 05:24 VBG Hematocrit 39.0 % (42-52) L 12/16/24 05:24 Hematocrit 42.5 % (42-52) 12/15/24 17:30 Hgb O2 Saturation 92.0 % (95-100) L 12/15/24 17:30 Carboxyhemoglobin 1.1 %THgb (0.4-20.1) 12/15/24 17:30 Methemoglobin 1.2 % (0.4-1.5) 12/15/24 17:30 Total Hemoglobin 13.9 g/dL (14-18) L 12/15/24 17:30 O2 Delivery Device Bipap 12/16/24 05:24 FiO2 30.0 % 12/16/24 05:24 Activities Counselor ID Jdb 12/16/24 05:24 Sodium 134 mmol/L (136-145) L 12/17/24 03:34 Potassium 3.5 mmol/L (3.5-5.1) 12/17/24 03:34 Chloride 99 mmol/L (98-107) 12/17/24 03:34 Carbon Dioxide 23 mmol/L (22-29) 12/17/24 03:34 Anion Gap 15.5 (5-19) 12/17/24 03:34 BUN 11 mg/dL (8-23) 12/17/24 03:34 Creatinine 0.7 mg/dL (0.7-1.2) 12/17/24 03:34 GFR Calculation 113.9 mL/min (90-130) 12/17/24 03:34 Glucose 180 mg/dL (65-115) H 12/17/24 03:34 POC Glucose 222 mg/dL (70-110) H 12/17/24 07:20 Calculated Osmolality 282 mOsm/kg (285-295) L 12/17/24 03:34 Calcium 8.3 mg/dL (8.5-10.5) L 12/17/24 03:34 Phosphorus 2.9 mg/dL (2.5-4.5) 12/16/24 10:26 Magnesium 1.8 mg/dL (1.7-2.3) 12/16/24 10:26 Total Bilirubin 0.7 mg/dL (0.15-1.2) 12/17/24 03:34 AST 362 U/L (0-40) H 12/17/24 03:34 ALT 117 U/L (0-41) H 12/17/24 03:34 Alkaline Phosphatase 352 U/L (40-130) H 12/17/24 03:34 Total Protein 5.8 g/dL (6.6-8.7) L 12/17/24 03:34 Albumin 2.6 g/dL (3.5-5.2) L 12/17/24 03:34 Globulin 3.2 g/dL (1.3-4.6) 12/17/24 03:34 Urine Color Yellow (Yellow) 12/15/24 18:22 Urine Appearance Cloudy (CLEAR) A 12/15/24 18: Urine pH 5.5 (5-7) 12/15/24 18:22 Ur Specific [place] 1.026 (1.005-1.030) 12/15/24 18:22 Urine Protein 1+ (Negative) A 12/15/24 18:22 Urine Glucose (UA) 3+ (Normal) H 12/15/24 18:22 Urine Ketones 2+ (Negative) H 12/15/24 18:22 Urine Blood 2+ (Negative) A 12/15/24 18:22 Urine Nitrate Positive (Negative) A 12/15/24 18: Urine Bilirubin Negative (Negative) 12/15/24 18: Urine Urobilinogen 1.0 mg/dL (Negative) 12/15/24 18:22 Ur Leukocyte Esterase Trace (Negative) A 12/15/24 18:22 Urine RBC 11-20 /hpf (0-2) H 12/15/24 18:22 Urine WBC 51-100 /hpf (0-5) H 12/15/24 18:22 Ur Squamous Epith Cells 6-10 /hpf (0-5) 12/15/24 18:22 Amorphous Sediment Not Reportable 12/15/24 18:22 Urine Bacteria 2+ /hpf (NONE) H 12/15/24 18:22 Hyaline Casts 0.81 /lpf 12/15/24 18:22 Ethyl Alcohol < 10 mg/dL (0-10) 12/16/24 14:08 Serum Ketones Negative (Negative) 12/16/24 05:24 Influenza A (PCR) Negative (Negative) 12/15/24 18:22 Influenza Type B (PCR) Negative (Negative) 12/15/24 18:22 RSV (PCR) Negative (Negative) 12/15/24 18:22 SARS-CoV-2 (PCR) Negative (Negative) 12/15/24 18:22 Vitals Last Vital Signs Temp 97.9 F 12/17/24 04:00 Pulse 110 H 12/17/24 06:30 Resp 23 H 12/17/24 06:30 BP 173/85 12/17/24 06:30 Pulse Ox 93 12/17/24 06:30 O2 Del Method Room Air 12/17/24 06:00 FiO2 30 12/16/24 08:44 Discharge Plan Discharge Patient Disposition: Home Health Service Condition: Stable Prescriptions: New amoxicillin-pot clavulanate [Augmentin] 500-125 mg tablet 1 tab PO Q12H Qty: 14 0RF multivitamin with folic acid [Thera] 400 mcg Tablet 1 tab PO DAILY Qty: 30 0RF thiamine mononitrate (vit B1) [Vitamin B-1 (mononitrate)] 100 mg Tablet 100 mg PO DAILY Qty: 30 0RF Continued fexofenadine 180 mg tablet 180 mg PO DAILY cholecalciferol (vitamin D3) 10 mcg (400 unit) capsule 10 mcg PO DAILY chromium picolinate 1,000 mcg tablet 1,000 mcg PO DAILY lutein 6 mg capsule 6 mg PO DAILY Rx Instructions: give with meal/snack aspirin [Adult Aspirin Regimen] 81 mg tablet,delayed release (DR/EC) 81 mg PO DAILY PRN (Reason: Pain) latanoprost 0.005 % drops 1 drp ophthalmic (eye) DAILY (DME) Ketone Urine Test Strip See Rx Instructions .Route Qty: 100 0RF Rx Instructions: As directed (DME) Diabetic shoes with 3 inserts See Rx Instructions .ROUTE .MEDSUPPLY Qty: 1 0RF Rx Instructions: As directed ascorbate calcium (vitamin C) 500 mg tablet 500 mg PO DAILY 90 Days Qty: 90 0RF (DME) pen needle, diabetic [TechLITE Pen Needle] 32 gauge x 5/32 needle See Rx Instructions .ROUTE .COMPLEX Qty: 400 0RF Dose Instruction: USE DIRECTED Rx Instructions: USE DIRECTED (DME) Dexcom G6 Transmitter Device See Rx Instructions .ROUTE .COMPLEX Qty: 1 0RF Dose Instruction: USE DIRECTED TO CHECK BLOOD GLUCOSE Rx Instructions: USE DIRECTED TO CHECK BLOOD GLUCOSE insulin lispro 100 unit/mL insulin pen See Rx Instructions .ROUTE .COMPLEX Qty: 90 1RF Dose Instruction: ADMINISTER 30 UNITS UNDER THE SKIN THREE TIMES DAILY BEFORE MEALS Rx Instructions: ADMINISTER 18 UNITS before breakfast and 25 units before lunch and dinner. zolpidem 10 mg tablet 10 mg PO DAILY Qty: 30 5RF (DME) Dexcom G6 Sensor Device See Rx Instructions .ROUTE .COMPLEX Qty: 9 1RF Dose Instruction: APPLY 1 SENSOR EVERY 10 DAYS DIRECTED Rx Instructions: APPLY 1 SENSOR EVERY 10 DAYS DIRECTED Glucagon Emergency Kit (human) 1 mg recon soln 1 mg SUBCUT Q20M PRN (Reason: hypoglycemia) Qty: 1 11RF Rx Instructions: until target blood sugar attained furosemide 40 mg tablet 40 mg PO DAILY atorvastatin 20 mg tablet 20 mg PO DAILY sertraline 100 mg tablet 150 mg PO DAILY metoprolol tartrate 50 mg tablet 50 mg PO BID levothyroxine 200 mcg tablet 200 mcg PO DAILY Santyl 250 unit/gram ointment 1 applic topical DAILY PRN (Reason: open wound) Rx Instructions: apply nickel thick to wound once daily. fluticasone propionate 50 mcg/actuation spray,suspension 2 spray intranasal DAILY insulin glargine [Lantus Solostar U-100 Insulin] 100 unit/mL (3 mL) insulin pen 35 unit SUBCUT DAILY 30 Days Qty: 0 0RF Discontinued Trulicity 4.5 mg/0.5 mL pen injector 4.5 mg SUBCUT Q7D Qty: 2 1RF Hydrographic Engineer OK for DC: Hospitalist Discharge Order = DC NOW: Discharge Order (Routine); Ordered 12/17/24 Ordered By: Alicja Aguilar Referrals: Harrison Hill MD [Primary Care Provider, Family Practice] Patient Instructions: Asthma - Adult, Depression, Thiamine (By mouth) ([facility] Vitamin B1, Nature's..., Amoxicillin (By mouth), Multivitamins, Adult Formula (By mouth), Sleep Apnea (GEN), Opioid Safety, Patient Portal & Carlos Alberto Instructions Discharge Attestations Time Spent in Discharge Care*: less than 30 min Status at Discharge: Cognitive status at discharge: cognitively intact, Behavioral status at discharge: cooperative, Quality Metrics Clinical Quality Measures [ No reported AMI, CVA or VTE this stay] Coding Level of Care Code 39606 Diagnoses DKA (diabetic ketoacidosis) E11.10 Diabetes mellitus type: type 1 Dehydration E86.0 Acute cystitis N30.00 Diabetic ulcer of left lower leg E11.622; L97.929 Hypothyroidism, unspecified type E03.9 Hypothyroidism type: unspecified Type 1 diabetes mellitus without complication E10.9 Diabetes mellitus complication status: without complication Mixed hyperlipidemia E78.2 Hyperlipidemia type: mixed hyperlipidemia Depression F32.9 Acid reflux K21.9 Asthma J45.909 Sleep apnea G47.30 Time Spent (min) 30
== END 2024-12-17 11:30 | disposition home health service (06) | DRG 637 ==
LOC: ER 20:34 → MEDSURG 20:59 → ER IP 22:24 → ICU 12-16 02:30
PROVIDERS: Family Medicine; Admitting Provider Student in an Organized Health Care Education/Training Program; Emergency Provider Emergency Medicine; PCP Family Medicine; Visit Provider Internal Medicine
DX: E10.10 Type 1 diabetes mellitus with ketoacidosis without coma (principal); J18.9 Pneumonia, unspecified organism; L97.829 Non-pressure chronic ulcer of other part of left lower leg with unspecified severity; N30.00 Acute cystitis without hematuria; E86.0 Dehydration; E10.622 Type 1 diabetes mellitus with other skin ulcer; E03.9 Hypothyroidism, unspecified; E78.2 Mixed hyperlipidemia; F32.A Depression, unspecified; K21.9 Gastro-esophageal reflux disease without esophagitis; J45.909 Unspecified asthma, uncomplicated; G47.30 Sleep apnea, unspecified; M19.90 Unspecified osteoarthritis, unspecified site; I10 Essential (primary) hypertension; F10.90 Alcohol use, unspecified, uncomplicated; D69.6 Thrombocytopenia, unspecified; Z79.82 Long term (current) use of aspirin; Z79.4 Long term (current) use of insulin
CPT/HCPCS: 36415; 36416; 36600; 51702; 71045; 74176; 80048; 80053; 80307; 81001; 82009; 82803; 82805; 82962; 83735; 84100; 85007; 85025; 85027; 85610; 87040; 87077; 87086; 87150; 87186; 87205; 87637; 93005; 94660; 96365; 96366; 96367; 96372; 96375; 96376; 99291; J0696; J1644; J1815; J3372; J3411; J3490; J7030; J7042; J7799; J9999

== ENCOUNTER → 2024-12-26 14:28 | Outpatient (BNVA) | payer MEDICAID, SELFPAY | PROVIDERS: PCP Family Medicine; Visit Provider Thoracic Surgery (Cardiothoracic Vascular Surgery) | DX: E11.52 Type 2 diabetes mellitus with diabetic peripheral angiopathy with gangrene (principal); E11.622 Type 2 diabetes mellitus with other skin ulcer; L97.821 Non-pressure chronic ulcer of other part of left lower leg limited to breakdown of skin; I87.2 Venous insufficiency (chronic) (peripheral) | CPT/HCPCS: 97597; A6212 ==

== ENCOUNTER 2024-12-27 07:57 | Inpatient (IN) | payer MEDICAID, SELFPAY ==
[2024-12-27] VITALS (27 sets, daily range): BP systolic 118–175; BP diastolic 62–90; PULSE 74–97; RESP 12–22; TEMP 36.7–37.1; O2SAT 90–100; BMI 35.7; BMI 37.9
--- NOTE | 2024-12-27 08:20 | W.ED.GENADLT ---
HPI - General Adult General: Chief complaint: ER Hold Stated complaint: Hyperglycemia Time Seen by Provider: 12/27/24 08:06 History of Present Illness: 64-year-old male presents emergency room via ambulance. They were called for lift assist at his home and they arrive there and evaluated him and found his blood sugar to read as high. He is diabetic he has a Dexcom in place but it fell off last time he had been monitoring his blood sugars. He has been having trouble controlling his blood sugars recently he has seen endocrinology they made several different changes. Associated symptoms: Deny chest pain, dyspnea or rash Related Data Home Medications ?Medication ?Instructions ?Recorded ?Confirmed cholecalciferol (vitamin D3) 10 10 mcg PO DAILY 04/01/20 12/27/24 mcg (400 unit) capsule fexofenadine 180 mg tablet 180 mg PO DAILY 04/01/20 12/27/24 (Hellen Allergy) aspirin 81 mg tablet,delayed 81 mg PO DAILY PRN Pain 11/06/21 12/27/24 release (Adult Aspirin Regimen) chromium picolinate 1,000 mcg 1,000 mcg PO DAILY 11/06/21 12/27/24 tablet latanoprost 0.005 % eye drops 1 drp ophthalmic (eye) DAILY 11/06/21 12/27/24 lutein 6 mg capsule 6 mg PO DAILY 11/06/21 12/27/24 atorvastatin 20 mg tablet 20 mg PO DAILY 11/24/24 12/27/24 collagenase clostridium histo. 250 1 applic topical DAILY PRN open 11/24/24 12/27/24 unit/gram topical ointment (Santyl) wound fluticasone propionate 50 2 spray intranasal DAILY 11/24/24 12/27/24 mcg/actuation nasal spray,suspension furosemide 40 mg tablet 40 mg PO DAILY 11/24/24 12/27/24 levothyroxine 200 mcg tablet 200 mcg PO DAILY 11/24/24 12/27/24 metoprolol tartrate 50 mg tablet 50 mg PO BID 11/24/24 12/27/24 sertraline 100 mg tablet 150 mg PO DAILY 11/24/24 12/27/24 insulin glargine 100 unit/mL (3 70 unit SUBCUT DAILY 12/27/24 12/27/24 mL) subcutaneous pen (Lantus Solostar U-100 Insulin) Previous Rx's ?Medication ?Instructions ?Recorded Diabetic shoes with 3 inserts #1 ea 08/26/20 ascorbate calcium (vitamin C) 500 500 mg PO DAILY 90 days #90 tabs 09/15/21 mg tablet pen needle, diabetic 32 gauge x #400 ea 12/10/23 (TechLITE Pen Needle) blood-glucose transmitter (Dexcom #1 ea 09/07/24 G6 Transmitter device) insulin lispro 100 unit/mL See Rx Instructions .Route 09/29/24 subcutaneous pen .COMPLEX #90 mL zolpidem 10 mg tablet 10 mg PO DAILY #30 tabs 10/31/24 blood-glucose sensor (Dexcom G6 #9 ea 11/17/24 Sensor device) glucagon 1 mg solution for 1 mg SUBCUT Q20M PRN hypoglycemia 11/20/24 injection (Glucagon Emergency Kit) #1 ea acetone (urine) test (Ketone Urine #100 ea 12/04/24 Test strips) amoxicillin 500 mg-potassium 1 tab PO Q12H #14 tabs 12/17/24 clavulanate 125 mg tablet (Augmentin) multivitamin with folic acid 400 1 tab PO DAILY #30 tabs 12/17/24 mcg tablet (Thera) thiamine mononitrate (vit B1) 100 100 mg PO DAILY #30 tabs 12/17/24 mg tablet (Vitamin B-1 (mononitrate)) Allergies Allergy/AdvReac Type Severity Reaction Status Date / Time sulfamethoxazole (From Allergy Severe rash Verified 10/10/24 13:13 Bactrim) trimethoprim (From Bactrim) Allergy Severe rash Verified 10/10/24 13:13 Review of Systems Const: Denies: fever(s) or chills Card: Denies: chest pain Resp: Denies: dyspnea GI: Denies: abdominal pain : Denies: dysuria, urinary frequency or urinary urgency Musc: Denies: neck pain or back pain Skin/Breast: Denies: rash PFSH ED PFSH: Medical History Knee osteoarthritis Arthritis Hypertension Diabetes type I Acid reflux Depression Asthma Hypothyroidism Polyp in nasopharynx Sleep apnea History of femoral angiogram Surgical History H/O arthroscopic knee surgery Family History Mother Cancer Diabetes Hypertension Hyperlipidemia Hypothyroidism Father Stroke Hypertension Hyperlipidemia Arthritis Social History Smoking and tobacco/nicotine status: never used tobacco/nicotine Second hand smoke exposure: No Alcohol intake: current Alcohol intake frequency: holidays/special occasions only Physical Exam Const: GENERAL APPEARANCE: cooperative ORIENTATION/CONSCIOUSNESS: Yes awake HENMT: COMMON NORMALS: normocephalic, atraumatic and hearing grossly normal bilaterally HEAD & SCALP: normocephalic and atraumatic Resp: COMMON NORMALS: normal respiratory effort, No retractions, No use of accessory muscles and clear to auscultation bilaterally AUSCULTATION: clear to auscultation bilaterally Cardio: COMMON NORMALS: regular rate, regular rhythm and No murmurs present (Cardio) RATE: regular rate RHYTHM: regular rhythm GI: COMMON NORMALS: Soft to palpation and No hepatosplenomegaly present AUSCULTATION: Yes normoactive bowel sounds PALPATION: Yes Soft to palpation, No Tenderness to palpation present (GI), No Guarding due to palpation present (GI) and Yes No hepatosplenomegaly present Extremity: COMMON NORMALS: normal to inspection, capillary refill normal, no clubbing, cyanosis or edema, no calf tenderness and no pedal edema Skin: COMMON NORMALS: no rashes or lesions noted GENERAL SKIN EXAM: no rashes or lesions noted Course Vital Signs: Vital signs: Vital Signs Temperature 98.1 F 12/27/24 07:58 Pulse Rate 81 12/27/24 16:17 Respiratory Rate 18 12/27/24 16:17 Blood Pressure 173/82 12/27/24 16:17 Pulse Oximetry 100 12/27/24 16:17 Oxygen Delivery Me thod Nasal Cannula 12/27/24 17:17 Oxygen Flow Rate 2 12/27/24 15:05 [facility] - General Adult Medical Decision Making Ketones negative he does have metabolic acidosis with a high anion gap. Patient given IV fluids and started on insulin and then insulin drip will admit to hospitalist orders written for ICU. Medical Records I reviewed the patient's medical records. Lab Data I reviewed the patient's lab results. 12/27/24 08:49 12/27/24 15:39 Radiology Impressions Chest/Abdomen X-ray 12/27/24 11:06 IMPRESSION: 1. No acute cardiopulmonary finding. 2. No acute abdominal process. Laboratory Results WBC 9.06 10^3/uL (3.29-11.43) 12/27/24 08:49 RBC 3.70 10^6/uL (3.85-5.65) L 12/27/24 08:49 Hgb 11.80 g/dL (11.27-16.99) 12/27/24 08:49 Hct 36.2 % (37-53) L 12/27/24 08:49 MCV 97.8 fl (82-101) 12/27/24 08:49 MCH 31.9 pg (27-33) 12/27/24 08:49 MCHC 32.6 g/dL (30-55) 12/27/24 08:49 RDW 13.5 % (12.1-15.1) 12/27/24 08:49 Plt Count 404 10^3/cmm (157-399) H 12/27/24 08:49 MPV 10.3 fL (7.4-10.4) 12/27/24 08:49 Neut % (Auto) 70.1 % 12/27/24 08:49 Lymph % (Auto) 19.8 % 12/27/24 08:49 [place] % (Auto) 5.0 % 12/27/24 08:49 Eos % (Auto) 3.6 % 12/27/24 08:49 Baso % (Auto) 0.8 % 12/27/24 08:49 Neut # (Auto) 6.36 10^3/uL (1.8-7.7) 12/27/24 08:49 Lymph # (Auto) 1.8 10^3/uL (0.8-4.8) 12/27/24 08:49 [place] # (Auto) 0.5 10^3/uL (0.2-0.9) 12/27/24 08:49 Eos # (Auto) 0.3 10^3/uL (0.0-0.8) 12/27/24 08:49 Baso # (Auto) 0.1 10^3/uL (0.0-0.1) 12/27/24 08:49 Nucleated RBC % (auto) 0 % 12/27/24 08:49 Nucleated RBCs # 0.0 /100WBC 12/27/24 08:49 Specimen Type Arterial 12/27/24 08:27 Sample Site Radial, right 12/27/24 08:27 ABG pH 7.38 (7.35-7.45) 12/27/24 08:27 ABG pCO2 34.8 mmHg (35-45) L 12/27/24 08:27 ABG pO2 79.6 mmHg (80.0-100.0) L 12/27/24 08:27 ABG PO2/FiO2 Ratio 379 12/27/24 08:27 ABG HCO3 20.7 mmol/L (22-26) L 12/27/24 08:27 ABG O2 Saturation 95.6 12/27/24 08:27 ABG Base Excess -3.8 mmol/L (-2.0-2.0) L 12/27/24 08:27 Rosas Test Pos 12/27/24 08:27 A-a O2 Gradient 3.2 mmHg (5-10) L 12/27/24 08:27 Hematocrit 38.0 % (42-52) L 12/27/24 08:27 Hgb O2 Saturation 93.6 % (95-100) L 12/27/24 08:27 Carboxyhemoglobin 0.9 %THgb (0.4-20.1) 12/27/24 08:27 Methemoglobin 1.2 % (0.4-1.5) 12/27/24 08:27 Total Hemoglobin 12.4 g/dL (14-18) L 12/27/24 08:27 Sodium 133.0 mmol/L (131-143) 12/27/24 08:27 Potassium 4.4 mmol/L (3.5-5.0) 12/27/24 08:27 Glucose 619.0 mg/dL (70-115) H 12/27/24 08:27 Ionized Calcium 1.2 mmol/L (1.1-1.4) 12/27/24 08:27 O2 Delivery Device Room air 12/27/24 08:27 FiO2 21.0 % 12/27/24 08:27 Baseball Pitcher ID [place] 12/27/24 08:27 Sodium 130 mmol/L (136-145) L 12/27/24 08:49 Potassium 4.9 mmol/L (3.5-5.1) 12/27/24 08:49 Chloride 88 mmol/L (98-107) L 12/27/24 08:49 Carbon Dioxide 20 mmol/L (22-29) L 12/27/24 08:49 Anion Gap 26.9 (5-19) H 12/27/24 08:49 BUN 12 mg/dL (8-23) 12/27/24 08:49 Creatinine 0.9 mg/dL (0.7-1.2) 12/27/24 08:49 GFR Calculation 85.2 mL/min (90-130) L 12/27/24 08:49 Glucose 607 mg/dL (65-115) H* 12/27/24 08:49 POC Glucose 416 mg/dL (70-110) H 12/27/24 11:55 Calculated Osmolality 298 mOsm/kg (285-295) H 12/27/24 08:49 Calcium 9.1 mg/dL (8.5-10.5) 12/27/24 08:49 Total Bilirubin 0.3 mg/dL (0.15-1.2) 12/27/24 08:49 AST 17 U/L (0-40) 12/27/24 08:49 ALT 12 U/L (0-41) 12/27/24 08:49 Alkaline Phosphatase 301 U/L (40-130) H 12/27/24 08:49 Total Protein 6.6 g/dL (6.6-8.7) 12/27/24 08:49 Albumin 3.2 g/dL (3.5-5.2) L 12/27/24 08:49 Globulin 3.4 g/dL (1.3-4.6) 12/27/24 08:49 Lipase 160 U/L (13-60) H 12/27/24 08:49 Urine Color Yellow (Yellow) 12/27/24 09:53 Urine Appearance Clear (CLEAR) 12/27/24 09:53 Urine pH 5.0 (5-7) 12/27/24 09:53 Ur Specific [place] 1.013 (1.005-1.030) 12/27/24 09:53 Urine Protein Negative (Negative) 12/27/24 09:53 Urine Glucose (UA) 2+ (Normal) H 12/27/24 09:53 Urine Ketones Trace (Negative) 12/27/24 09:53 Urine Blood Trace (Negative) A 12/27/24 09:53 Urine Nitrate Negative (Negative) 12/27/24 09:53 Urine Bilirubin Negative (Negative) 12/27/24 09:53 Urine Urobilinogen 0.2 mg/dL (Negative) 12/27/24 09:53 Ur Leukocyte Esterase Negative (Negative) 12/27/24 09:53 Urine RBC 0-2 /hpf (0-2) 12/27/24 09:53 Urine WBC 0-5 /hpf (0-5) 12/27/24 09:53 Ur Squamous Epith Cells 0-5 /hpf (0-5) 12/27/24 09:53 Amorphous Sediment Not Reportable 12/27/24 09:53 Urine Bacteria None seen /hpf (NONE) 12/27/24 09:53 Hyaline Casts 0.40 /lpf 12/27/24 09:53 Serum Ketones Negative (Negative) 12/27/24 08:49 All radiology interpretation(s) finalized by discharge EKG Data EKG 1: I personally reviewed and interpreted this EKG as follows: Interpretation: EKG 12/27/2024 8:55 AM sinus rhythm rate of 85. [place] [address]Tc [address] changes are noted. Q waves in V3 and 4 likely old compared to EKG 12/15/2024 no significant changes. Computer generated interpretation: Chest/Abdomen X-ray 12/27/24 11:06 IMPRESSION: 1. No acute cardiopulmonary finding. 2. No acute abdominal process. Discharge Plan Discharge Patient Disposition: Admitted As Inpatient Admit Provider: Rosales Sommer Clinical Impression: Hyperglycemia, Diabetes type I, Sleep apnea Condition: Stable Coding Level of Care Code ED Insurance Claim Representative for [employer]
--- NOTE | 2024-12-27 08:22 | ECG_ITS ---
[facility] Date: 2024-12-27 Pat Name: Case Morin Department: Room: Gender: Male Staff Analyst: : 1960 Requested By: Jf Wilson Order Number: [id number] Isabelle MD: Ben Stubbs M.D. Measurements Intervals [place] Rate: 85 P: 67 MT: 208 QRS: 43 QRSD: 84 T: 35 QT: 380 QTc: 453 Interpretive Statements SINUS RHYTHM POSSIBLE ANTERIOR MYOCARDIAL INFARCTION , PROBABLY OLD [30 ms Q WAVE IN V3/V4, OR R < 0.2 mV IN V4] Compared to ECG 12/15/2024 17:56:39 Sinus tachycardia no longer present Electronically Signed On 12-28-2024 19:31:00 CDT by Ben Stubbs M.D. [email or web address]
[2024-12-27 08:38] LABS: ABG PCO2 34.8 mmHg (35-45); ABG PH Result 7.38 (7.35-7.45); Alveolar-Arterial Oxygen Gradi 3.2 mmHg (5-10); Arterial Blood Gas Hematocrit 38.0 % (42-52); Blood Gas Allen Test Pos; Blood Gas Operator Identificat WALCI; Blood Gas Sample Site Radial, right; Blood Gas Sample Type Arterial; Carboxyhemoglobin 0.9 %THgb (0.4-20.1); Glucose Level-ABG 619.0 mg/dL (70-115); HCO3 ABG 20.7 mmol/L (22-26); Ionized Calcium Level - ABG 1.2 mmol/L (1.1-1.4); Methemoglobin 1.2 % (0.4-1.5); Oxygen Saturation ABG 95.6; PO2 ABG 79.6 mmHg (80.0-100.0); PO2 FiO2 Ratio Arterial Blood 379; Potassium Level - ABG 4.4 mmol/L (3.5-5.0); Sodium Level - ABG 133.0 mmol/L (131-143)
[2024-12-27 08:57] LABS: Hematocrit 36.2 % (37-53); Hemoglobin 11.80 g/dL (11.27-16.99); Mean Corpuscular HGB Conc 32.6 g/dL (30-55); Mean Corpuscular Hemoglobin 31.9 pg (27-33); Mean Corpuscular Volume 97.8 fl (82-101); Nucleated Red Blood Cells % 0 %; Platelet Count 404 10^3/cmm (157-399); Red Blood Count 3.70 10^6/uL (3.85-5.65); White Blood Count 9.06 10^3/uL (3.29-11.43)
[2024-12-27] MEDS: insulin regular-human 100 units/1 mL 16 UNIT IVP (08:59)
[2024-12-27 09:13] LABS: Alanine Aminotransferase 12 U/L (0-41); Albumin Level 3.2 g/dL (3.5-5.2); Alkaline Phosphatase 301 U/L (40-130); Anion Gap 26.9 (5-19); Aspartate Amino Transferase 17 U/L (0-40); Blood Urea Nitrogen 12 mg/dL (8-23); Calcium 9.1 mg/dL (8.5-10.5); Carbon Dioxide 20 mmol/L (22-29); Chloride 88 mmol/L (98-107); Creatinine Clr Calc Pharmacy 102.5806; Globulin 3.4 g/dL (1.3-4.6); Lipase 160 U/L (13-60); Osmolality Calculated 298 mOsm/kg (285-295); Potassium 4.9 mmol/L (3.5-5.1); Sodium 130 mmol/L (136-145); Total Protein 6.6 g/dL (6.6-8.7)
[2024-12-27 09:14] LABS: Ketone (Acetest) Serum Negative (Negative)
[2024-12-27 09:21] LABS: Glucose 607 mg/dL (65-115)
[2024-12-27 10:16] LABS: Glucose Urine UA 2+ (Normal); Nitrate Urine Negative (Negative); Specific Gravity, Urine 1.013 (1.005-1.030)
[2024-12-27 10:19] LABS: Add Urine Microscopic? YES
[2024-12-27] MEDS: INSULIN REGULAR IN 0.9 % NACL 100 UNIT/100 ML BAG 11 UNIT IV (10:54)
--- NOTE | 2024-12-27 11:06 | XR_ITS ---
WS: [id number] Exam: XR acute abdomen series [id number] Date/Time of Exam: 12/27/2024 11:15 AM Reason For Exam: n/v DLP: AP chest radiograph. No priors. Lungs are fully inflated and clear. Normal cardiomediastinal silhouette. Bony structures are intact. Spondylosis of the T-spine. Flat and erect abdomen. No bowel obstruction or pneumoperitoneum. No sign of organ enlargement. Moderate amount retained stool throughout the colon. Bony structures are intact. XR/XR acute abdomen series [id number] IMPRESSION: 1. No acute cardiopulmonary finding. 2. No acute abdominal process.
--- NOTE | 2024-12-27 12:00 | PC.NURSE ---
PATIENT USES 2 L NC AT NIGHT PRN. PATIENT PLACED ON O2 DUE TO SLEEP APNEA AND DESATURATION TO 74%.
--- NOTE | 2024-12-27 13:17 | PM.HP ---
Documented by User: ARIA Gates STDNT 12/27/24 14:57 Providers/Chief Complaint Admitting Physician: Rosales Sommer Primary Care Provider: Harrison Hill MD Chief Complaint: Hyperglycemia History of Present Illness Case Morin is a 64 year old male with past medical history of type 1 diabetes and multiple hospitalizations for DKA, lower extremity diabetic ulcers followed by wound care, hypertension, gastroesophageal reflux disease, hypothyroidism, obstructive sleep apnea, asthma, and depression. He was brought to the hospital after EMS was called for a lift assist at home and found his blood sugar to be 600. EMS reports his Dexcom had fallen off. Patient is alert and oriented in the ER. He reports feeling unwell with some stomach pain and calling EMS. He described feeling the sensation of his prior DKA admission on December 15 and wanted to be seen to avoid vomiting like last time. He reports not missing any insulin doses recently. He attributes not wearing his Dexcom to losing it. He is seen by Dr. Hill and Dr. Ramirez, who is trying to get him approved for an insulin pump. His last A1c was 8.4 in October. He reports his daily insulin dose is 25 units Lispro premeal and 35 units basal Lantus before bed. He was not aware of any changes to his insulin dose. He has a prior order for 70 units Lantus which he was unaware. He has no chest pain shortness of breath fever chills sick contacts or dysuria. He does report urinary urgency. He has a chronic diabetic ulcer wound on his left leg that is seen by wound care. Review of Systems Const: Denies: fever(s) or chills Card: Reports: swelling of feet/ankles; Denies: chest pain Resp: Denies: dyspnea or productive cough GI: Denies: abdominal pain or vomiting : Reports: urinary urgency; Denies: dysuria Medications/Allergies Home Medications ?Medication ?Instructions ?Recorded ?Confirmed ?Last Taken ?Type cholecalciferol (vitamin D3) 10 10 mcg PO DAILY 04/01/20 12/27/24 12/26/24 History mcg (400 unit) capsule fexofenadine 180 mg tablet 180 mg PO DAILY 04/01/20 12/27/24 Unknown History (Hellen Allergy) Diabetic shoes with 3 inserts #1 ea 08/26/20 12/27/24 Unknown Rx ascorbate calcium (vitamin C) 500 500 mg PO DAILY 90 days #90 tabs 09/15/21 12/27/24 12/26/24 Rx mg tablet aspirin 81 mg tablet,delayed 81 mg PO DAILY PRN Pain 11/06/21 12/27/24 12/26/24 History release (Adult Aspirin Regimen) chromium picolinate 1,000 mcg 1,000 mcg PO DAILY 11/06/21 12/27/24 12/26/24 History tablet latanoprost 0.005 % eye drops 1 drp ophthalmic (eye) DAILY 11/06/21 12/27/24 Unknown History lutein 6 mg capsule 6 mg PO DAILY 11/06/21 12/27/24 Unknown History pen needle, diabetic 32 gauge x #400 ea 12/10/23 12/27/24 Unknown Rx (TechLITE Pen Needle) blood-glucose transmitter (Dexcom #1 ea 09/07/24 12/27/24 Unknown Rx G6 Transmitter device) insulin lispro 100 unit/mL See Rx Instructions .Route 09/29/24 12/27/24 12/26/24 Rx subcutaneous pen .COMPLEX #90 mL zolpidem 10 mg tablet 10 mg PO DAILY #30 tabs 10/31/24 12/27/24 12/26/24 19:00 Rx blood-glucose sensor (Dexcom G6 #9 ea 11/17/24 12/27/24 Unknown Rx Sensor device) glucagon 1 mg solution for 1 mg SUBCUT Q20M PRN hypoglycemia 11/20/24 12/27/24 Unknown Rx injection (Glucagon Emergency Kit) #1 ea atorvastatin 20 mg tablet 20 mg PO DAILY 11/24/24 12/27/24 12/26/24 History collagenase clostridium histo. 250 1 applic topical DAILY PRN open 11/24/24 12/27/24 Unknown History unit/gram topical ointment (Santyl) wound fluticasone propionate 50 2 spray intranasal DAILY 11/24/24 12/27/24 Unknown History mcg/actuation nasal spray,suspension furosemide 40 mg tablet 40 mg PO DAILY 11/24/24 12/27/24 12/26/24 History levothyroxine 200 mcg tablet 200 mcg PO DAILY 11/24/24 12/27/24 12/26/24 History metoprolol tartrate 50 mg tablet 50 mg PO BID 11/24/24 12/27/24 12/26/24 History sertraline 100 mg tablet 150 mg PO DAILY 11/24/24 12/27/24 12/26/24 History acetone (urine) test (Ketone Urine #100 ea 12/04/24 12/27/24 Unknown Rx Test strips) amoxicillin 500 mg-potassium 1 tab PO Q12H #14 tabs 12/17/24 12/27/24 12/24/24 Rx clavulanate 125 mg tablet (Augmentin) multivitamin with folic acid 400 1 tab PO DAILY #30 tabs 12/17/24 12/27/24 12/26/24 Rx mcg tablet (Thera) thiamine mononitrate (vit B1) 100 100 mg PO DAILY #30 tabs 12/17/24 12/27/24 12/26/24 Rx mg tablet (Vitamin B-1 (mononitrate)) insulin glargine 100 unit/mL (3 70 unit SUBCUT DAILY 12/27/24 12/27/24 Unknown History mL) subcutaneous pen (Lantus Solostar U-100 Insulin) Allergies Allergy/AdvReac Type Severity Reaction Status Date / Time sulfamethoxazole (From Allergy Severe rash Verified 10/10/24 13:13 Bactrim) trimethoprim (From Bactrim) Allergy Severe rash Verified 10/10/24 13:13 PFSH Acute PFSH: Medical History Knee osteoarthritis Arthritis Hypertension Diabetes type I Acid reflux Depression Asthma Hypothyroidism Polyp in nasopharynx Sleep apnea History of femoral angiogram Surgical History H/O arthroscopic knee surgery Family History Mother Cancer Diabetes Hypertension Hyperlipidemia Hypothyroidism Father Stroke Hypertension Hyperlipidemia Arthritis Social History Smoking and tobacco/nicotine status: never used tobacco/nicotine Second hand smoke exposure: No Alcohol intake: current Alcohol intake frequency: holidays/special occasions only Vitals/I&O/Wt Last Vital Signs Temp 98.1 F 12/27/24 07:58 Pulse 90 12/27/24 12:04 Resp 16 12/27/24 12:04 BP 164/89 12/27/24 12:04 Pulse Ox 94 12/27/24 12:04 O2 Del Method Room Air 12/27/24 12:04 12/26/24 12/27/24 12/27/24 22:59 06:59 14:59 Intake Total 2024.034 / 2024.034 Balance 2024.034 / 2024. Weight last 48 hrs Weight 109.769 kg Physical Exam Const: COMMON NORMALS: no acute distress, patient oriented x3, alert and well nourished NUTRITIONAL APPEARANCE: obese (centrally obese) Resp: COMMON NORMALS: normal respiratory effort, No use of accessory muscles and clear to auscultation bilaterally Cardio: COMMON NORMALS: regular rate, regular rhythm, S1 normal heart sound present, S2 normal heart sound present and No murmurs present (Cardio) GI: INSPECTION: Yes abdominal distension and Yes visible herniation AUSCULTATION: Yes normoactive bowel sounds PALPATION: No Tenderness to palpation present (GI) Extremity: LEFT LOWER EXTREMITY: Yes lower leg (chronic wound, no purulence, erythema, nor skin breaks) Left lower leg: Yes inspection Neuro: COMMON NORMALS: patient oriented x3 and no focal motor deficits Psych: COMMON NORMALS: mental status grossly normal, Normal thought process present and cooperative Skin: GENERAL SKIN EXAM: purpura (notable purpura around subcutaneous insulin sites) Data 12/27/24 08:49 12/27/24 15:39 A&P Assessment and plan 1. Severe hyperglycemia due to diabetes mellitus: 2. Malaise: Plan: Patient presenting with hyperglycemia with unknown cause or inciting event. Differential diagnosis is unclear diabetic education, latent urinary tract infection, medication noncompliance. 1. Hyperglycemia - Serum glucose is greater than 600 with no ketones detected in urine. - Pseudohyponatremia present. Corrected sodium by Ana formula shows sodium level of 142. - Arterial blood gas shows compensated metabolic acidosis. - Patient currently stable with hypertension, respiratory rate of 16, and 94% oxygen saturation on room air. - Potassium levels are 4.9 currently. - Anion gap 26.9 - May be able to switch from current insulin drip to subcutaneous insulin if anion gap closes before bed transfer. 2. Hypertension - currently only on metoprolol tartrate and furosemide at home. Patient claims to be on an L-name blood pressure medication. - will continue home blood pressure meds. 3. History of ESBL colonization - Documented cultures with ESBL organisms with intermediate resistance to Augmentin which should not have covered his infection. No bacturia or dysuria today. May drawn repeat urine and blood cultures to determine clearance of ESBL organisms. Chest and abdominal x-ray unremarkable. PDMP PDMP Reviewed: Not Reviewed Attestations Medical Necessity Statement*: observation for IV insulin administration and anion gap closure, not expected to cross 2 midnights. Coding Level of Care Code Critical Care >/= 30 minutes Diagnoses Severe hyperglycemia due to diabetes mellitus E11.65 Malaise R53.81 Documented by User: Rosales Sommer MD 12/27/24 18:01 Providers/Chief Complaint Chief Complaint: Hyperglycemia Review of Systems GI: Reports: nausea Medications/Allergies Home Medications ?Medication ?Instructions ?Recorded ?Confirmed ?Last Taken ?Type cholecalciferol (vitamin D3) 10 10 mcg PO DAILY 04/01/20 12/27/24 12/26/24 History mcg (400 unit) capsule fexofenadine 180 mg tablet 180 mg PO DAILY 04/01/20 12/27/24 Unknown History (Hellen Allergy) Diabetic shoes with 3 inserts #1 ea 08/26/20 12/27/24 Unknown Rx ascorbate calcium (vitamin C) 500 500 mg PO DAILY 90 days #90 tabs 09/15/21 12/27/24 12/26/24 Rx mg tablet aspirin 81 mg tablet,delayed 81 mg PO DAILY PRN Pain 11/06/21 12/27/24 12/26/24 History release (Adult Aspirin Regimen) chromium picolinate 1,000 mcg 1,000 mcg PO DAILY 11/06/21 12/27/24 12/26/24 History tablet latanoprost 0.005 % eye drops 1 drp ophthalmic (eye) DAILY 11/06/21 12/27/24 Unknown History lutein 6 mg capsule 6 mg PO DAILY 11/06/21 12/27/24 Unknown History pen needle, diabetic 32 gauge x #400 ea 12/10/23 12/27/24 Unknown Rx 32 (TechLITE Pen Needle) blood-glucose transmitter (Dexcom #1 ea 09/07/24 12/27/24 Unknown Rx G6 Transmitter device) insulin lispro 100 unit/mL See Rx Instructions .Route 09/29/24 12/27/24 12/26/24 Rx subcutaneous pen .COMPLEX #90 mL zolpidem 10 mg tablet 10 mg PO DAILY #30 tabs 10/31/24 12/27/24 12/26/24 19:00 Rx blood-glucose sensor (Dexcom G6 #9 ea 11/17/24 12/27/24 Unknown Rx Sensor device) glucagon 1 mg solution for 1 mg SUBCUT Q20M PRN hypoglycemia 11/20/24 12/27/24 Unknown Rx injection (Glucagon Emergency Kit) #1 ea atorvastatin 20 mg tablet 20 mg PO DAILY 11/24/24 12/27/24 12/26/24 History collagenase clostridium histo. 250 1 applic topical DAILY PRN open 11/24/24 12/27/24 Unknown History unit/gram topical ointment (Santyl) wound fluticasone propionate 50 2 spray intranasal DAILY 11/24/24 12/27/24 Unknown History mcg/actuation nasal spray,suspension furosemide 40 mg tablet 40 mg PO DAILY 11/24/24 12/27/24 12/26/24 History levothyroxine 200 mcg tablet 200 mcg PO DAILY 11/24/24 12/27/24 12/26/24 History metoprolol tartrate 50 mg tablet 50 mg PO BID 11/24/24 12/27/24 12/26/24 History sertraline 100 mg tablet 150 mg PO DAILY 11/24/24 12/27/24 12/26/24 History acetone (urine) test (Ketone Urine #100 ea 12/04/24 12/27/24 Unknown Rx Test strips) amoxicillin 500 mg-potassium 1 tab PO Q12H #14 tabs 12/17/24 12/27/24 12/24/24 Rx clavulanate 125 mg tablet (Augmentin) multivitamin with folic acid 400 1 tab PO DAILY #30 tabs 12/17/24 12/27/24 12/26/24 Rx mcg tablet (Thera) thiamine mononitrate (vit B1) 100 100 mg PO DAILY #30 tabs 12/17/24 12/27/24 12/26/24 Rx mg tablet (Vitamin B-1 (mononitrate)) insulin glargine 100 unit/mL (3 70 unit SUBCUT DAILY 12/27/24 12/27/24 Unknown History mL) subcutaneous pen (Lantus Solostar U-100 Insulin) Allergies Allergy/AdvReac Type Severity Reaction Status Date / Time sulfamethoxazole (From Allergy Severe rash Verified 10/10/24 13:13 Bactrim) trimethoprim (From Bactrim) Allergy Severe rash Verified 10/10/24 13:13 PFSH Acute PFSH: Medical History Knee osteoarthritis Arthritis Hypertension Diabetes type I Acid reflux Depression Asthma Hypothyroidism Polyp in nasopharynx Sleep apnea History of femoral angiogram Surgical History H/O arthroscopic knee surgery Family History Mother Cancer Diabetes Hypertension Hyperlipidemia Hypothyroidism Father Stroke Hypertension Hyperlipidemia Arthritis Social History Smoking and tobacco/nicotine status: never used tobacco/nicotine Second hand smoke exposure: No Alcohol intake: current Alcohol intake frequency: holidays/special occasions only Data 12/27/24 08:49 12/27/24 15:39 A&P Assessment and plan 1. Severe hyperglycemia due to diabetes mellitus: 2. Malaise: Plan: Patient presenting with hyperglycemia with unknown cause or inciting event. Differential diagnosis is unclear diabetic education, latent urinary tract infection, medication noncompliance. 1. Hyperglycemia - Serum glucose is greater than 600 with no ketones detected in urine. - Pseudohyponatremia present. Corrected sodium by Ana formula shows sodium level of 142. - Arterial blood gas shows compensated metabolic acidosis. - Patient currently stable with hypertension, respiratory rate of 16, and 94% oxygen saturation on room air. - Potassium levels are 4.9 currently. - Anion gap 26.9 - May be able to switch from current insulin drip to subcutaneous insulin if anion gap closes before bed transfer. 2. Hypertension - currently only on metoprolol tartrate and furosemide at home. Patient claims to be on an L-name blood pressure medication. - will continue home blood pressure meds. 3. History of ESBL colonization - Documented cultures with ESBL organisms with intermediate resistance to Augmentin which should not have covered his infection. No bacturia or dysuria today. May drawn repeat urine and blood cultures to determine clearance of ESBL organisms. Chest and abdominal x-ray unremarkable. Ham Cherry, MS3 Patient seen and assessed independently and findings and documentation reviewed and discussed with medical student. This is a 64-year-old gentleman with a history of type 1 diabetes mellitus (T1DM), hypertension (HTN), asthma, hypothyroidism, obstructive sleep apnea (RICKEY), and depression who was brought to the emergency department (ED) after a lift-assist visit by emergency medical services (EMS) revealed severe hyperglycemia. His continuous glucose monitor (Dexcom) sensor reportedly fell off earlier today; a replacement has been ordered. In the ED, blood glucose was 607 mg/dL. Reports vague malaise, multiple episodes of vomiting, and generalized weakness. Urinary urgency is present; minimal burning with urination. Denies fever; intermittent cough without sick contacts. He describes an episode of passing out and shaking at home, after which EMS transported him. He states he has not missed insulin doses. Current regimen described as mealtime insulin ?25 units before each of three meals? and nightly insulin glargine (Lantus) 32 units (previously 35 units); he is unaware of a previously recorded order for Lantus 70 units daily. 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 Recent hospitalization with discharge on December 17 for diabetic ketoacidosis (DKA), pneumonia, and urinary tract infection (UTI) complicated by extended-spectrum beta-lactamase (ESBL) Escherichia coli bacteremia; went home on amoxicillin-clavulanate (Augmentin) for 7 days. Prior computed tomography (CT) pelvis on 12/15 reportedly showed bladder wall changes, possible prostate findings, non-obstructing right renal calculus, hepatosplenomegaly, and a large fat-containing umbilical hernia. Today?s urinalysis appears overall unremarkable. He uses CPAP at night. He has a chronic left lower alonso ulcer followed by wound care and uses a rolling walker. PE Gen: Awake, alert, pleasant, conversant Card: RRR, no MRG Pulm: CTAB Abdo: Soft, NT, large abdomen w nontender large umbilical hernia. lower abdominal bruising from insulin injections. Skin: Left lower alonso with very shallow erosion/ulcer; dressing with small amount of slough; no active drainage; no significant surrounding erythema or cellulitis; no tunneling or undermining AP Severe hyperglycemia with elevated anion gap with possible early ketoacidosis: ED glucose 607 mg/dL, anion gap elevated; ketones negative; not in overt DKA but described as early trend. Reviewed vitals, CBC, ABG, CMP, lipase, UA, serum ketones, chest and abdominal x-ray, EKG on my interpretation sinus rhythm, no Q waves on my interpretation, pending official read, reviewed ED provider note, discussed with ED provider. - Continue insulin drip. Discussed with nursing. Recheck chemistry obtained. She was started on D5W half-normal On review of chemistry noted anion gap closing down to 13.7 bicarb 27. Discontinue insulin drip as blood glucose down to 100 despite D5W. Continue D5 infusion for now, start Lantus. He has been n.p.o., diet is advanced to cardiac as carbohydrate. Although appetite not been the best so for now cut down his Lantus dose to 20 units. Sliding scale was added. Continue to monitor blood glucose. - Reassess chemistry and anion gap; if closing and blood glucose continues to improve, discuss switching to subcutaneous insulin. - Allow oral intake as tolerated. - Reassess electrolytes (potassium, magnesium) and replace as needed. - Magnesium requested, reviewed 1.5. Request replacement of hypomagnesemia. - Unclear trigger, assess for possible continued or recurrent infection as below. Additionally will need to follow-up with endocrinology after discharge for continued optimization of blood glucose control, arrangements for insulin pump History of recent ESBL E. coli UTI with bacteremia : Recent hospitalization with urine and blood cultures positive for ESBL E. coli; prior outpatient antibiotic (Augmentin) did not cover organism; today?s UA overall unremarkable; patient notes urinary urgency. - Request repeat blood culture. - Repeat urine culture. - Empirically treat with a carbapenem; follow up culture results to guide therapy. Chronic left lower alonso ulcer : Followed by wound care; current dressing with small slough; no drainage or surrounding cellulitis. - Continue dressing changes as currently performed. - Continue follow-up with wound care. Type 1 diabetes mellitus (insulin-treated) : Patient reports mealtime insulin and nightly Lantus 32?35 units; unaware of prior order for Lantus 70 units daily; working with endocrinology on insulin pump. - Follow up with endocrinology for continued blood glucose optimization. - Continue arrangements for insulin pump and ongoing glucose monitoring. Obstructive sleep apnea : Uses CPAP at night ordered. Follow-up : Ongoing inpatient evaluation and management as above. - ICU admission discussed as possible; may be avoided if rapid improvement allows transition to subcutaneous insulin. Rosales Sommer MD PDMP PDMP Reviewed: Not Reviewed Attestations Medical Necessity Statement*: Place in observation for IV insulin administration for severe hyperglycemia, possible early ketoacidosis and anion gap closure, not expected to cross 2 midnights. Coding Level of Care Code Critical Care >/= 30 minutes Critical care time (in minutes): 35 The high probability of a clinically significant, sudden or life threatening deterioration, as referenced in this documentation, required my full and direct attention, intervention and personal management. The critical care time shown is in addition to time spent performing any reported separately billable procedures and includes the following: [x] Data and vital sign review and interpretation [x] Patient assessment, examination and intervention [x] Medication orders and management [x] Patient/Family updates as able [x] Care Coordination and Documentation. Diagnoses Severe hyperglycemia due to diabetes mellitus E11.65 Malaise R53.81
[2024-12-27] MEDS: D5-NS 0.45% + KCL 20 mEq 20 MEQ/1,000 ML BAG 125 MEQ IV (14:16)
[2024-12-27] MEDS: meropenem 1,000 mg SDV 1000 MG IVP ×2 (15:38→22:29)
[2024-12-27] MEDS: pantoprazole 40 mg SDV IVP (15:38)
[2024-12-27 16:04] LABS: Anion Gap 13.7 (5-19); Blood Urea Nitrogen 10 mg/dL (8-23); Calcium 7.9 mg/dL (8.5-10.5); Carbon Dioxide 27 mmol/L (22-29); Chloride 97 mmol/L (98-107); Creatinine Clr Calc Pharmacy 115.4032; Magnesium 1.5 mg/dL (1.7-2.3); Osmolality Calculated 296 mOsm/kg (285-295); Potassium 5.7 mmol/L (3.5-5.1); Sodium 132 mmol/L (136-145)
[2024-12-27 16:07] LABS: Glucose 513 mg/dL (65-115)
--- NOTE | 2024-12-27 16:13 | PC.NURSE ---
PER AMISH, FSBS AT 1600 100 AND ANION GAP WNL. NURSE TO STOP INSULIN DRIP, LEAVE D5 RUNNING, AND GIVEN 20 UNITS LANTUS. PATIENT ALSO TO GET CARB CONSISTENT DIET. NURSE YOANA.
--- NOTE | 2024-12-27 17:08 | PC.NURSE ---
ACCEPTING NURSE MADE AWARE THAT LANTUS NOT GIVEN AT TIME OF TRANSFER DUE TO PATIENT BLOOD SUGAR. GAVE VERBAL INSTRUCTION OF ADMITTING PROVIDERS ORDER TO STOP INSULIN DRIP AND KEEP DEXTROSE RUNNING.
[2024-12-27] MEDS: insulin glargine 100 units/1 mL 20 UNIT SUBCUT (17:30)
[2024-12-27] MEDS: magnesium sulfate premix 2 GM/50 ML PIGGYBACK IV (18:06)
[2024-12-27 18:49] LABS: Glucose 274 mg/dL (65-115)
[2024-12-28] VITALS (19 sets, daily range): BP systolic 129–186; BP diastolic 61–102; PULSE 67–89; RESP 1–23; TEMP 36.6–37.3; O2SAT 93–100
[2024-12-28] MEDS: ATORVASTATIN 20 MG TABLET PO (04:49)
[2024-12-28 05:39] LABS: Hematocrit 38.5 % (37-53); Hemoglobin 12.60 g/dL (11.27-16.99); Mean Corpuscular HGB Conc 32.7 g/dL (30-55); Mean Corpuscular Hemoglobin 32.2 pg (27-33); Mean Corpuscular Volume 98.5 fl (82-101); Nucleated Red Blood Cells % 0 %; Platelet Count 403 10^3/cmm (157-399); Red Blood Count 3.91 10^6/uL (3.85-5.65); White Blood Count 8.20 10^3/uL (3.29-11.43)
[2024-12-28 06:00] LABS: Alanine Aminotransferase 11 U/L (0-41); Albumin Level 3.0 g/dL (3.5-5.2); Alkaline Phosphatase 280 U/L (40-130); Anion Gap 16.4 (5-19); Aspartate Amino Transferase 16 U/L (0-40); Blood Urea Nitrogen 10 mg/dL (8-23); Calcium 8.6 mg/dL (8.5-10.5); Carbon Dioxide 28 mmol/L (22-29); Chloride 97 mmol/L (98-107); Creatinine Clr Calc Pharmacy 136.0028; Globulin 3.5 g/dL (1.3-4.6); Glucose 281 mg/dL (65-115); Osmolality Calculated 293 mOsm/kg (285-295); Potassium 4.4 mmol/L (3.5-5.1); Sodium 137 mmol/L (136-145); Total Protein 6.5 g/dL (6.6-8.7)
--- NOTE | 2024-12-28 06:25 | PC.NURSE ---
02:23 - Contacted Dr. Aguilar in reference to patient's BG being 254. No new orders received.
[2024-12-28 08:11] LABS: Magnesium 2.2 mg/dL (1.7-2.3)
[2024-12-28] MEDS: meropenem 1,000 mg SDV 1000 MG IVP ×3 (08:39→23:51)
--- NOTE | 2024-12-28 08:53 | P.PN_ITS ---
Subjective 2 Subjective: He slept very well overnight. He is feeling significantly better today. He ate dinner and has appetite for breakfast, states his appetite is good. No nausea or vomiting. Vitals/I&O/Wt Last Vital Signs Temp 97.8 F 12/28/24 04:00 Pulse 89 12/28/24 06:00 Resp 15 12/28/24 04:00 BP 169/76 12/28/24 04:00 Pulse Ox 98 12/28/24 04:00 O2 Del Method Room Air 12/28/24 04:00 O2 Flow Rate 2 12/27/24 21:50 12/27/24 12/28/24 12/28/24 22:59 06:59 14:59 Intake Total 40.1 / 2065.134 610 / 2675.134 Output Total 150 / 1650 300 / 1950 Balance -109.9 / 415.134 310 / 725.134 Weight last 48 hrs Weight 117.5 kg Weight 116.5 kg Weight 109.769 kg Physical Exam 2 Const: COMMON NORMALS: patient oriented x3 and alert GENERAL APPEARANCE: c ooperative ORIENTATION/CONSCIOUSNESS: Yes awake HENMT: COMMON NORMALS: oropharynx normal Neck/C-Spine: COMMON NORMALS: no JVD Resp: COMMON NORMALS: normal respiratory effort and clear to auscultation bilaterally AUSCULTATION: clear to auscultation bilaterally Cardio: COMMON NORMALS: no JVD, regular rhythm, S1 normal heart sound present, S2 normal heart sound present and No murmurs present (Cardio) RHYTHM: regular rhythm HEART SOUNDS: S1 normal heart sound present and S2 normal heart sound present GI: COMMON NORMALS: Normal to inspection, nondistended, normoactive bowel sounds present, Soft to palpation and non-tender PALPATION: Yes Soft to palpation Extremity: COMMON NORMALS: no joint enlargement and no pedal edema Neuro: COMMON NORMALS: patient oriented x3 and moves all extremities S ENSORIUM/ORIENTATION: Yes alert Skin: COMMON NORMALS: no rashes or lesions noted GENERAL SKIN EXAM: no rashes or lesions noted Data 12/28/24 04:33 12/28/24 04:33 Micro: Microbiology 12/27/24 14:24 Blood Culture - Preliminary Blood SPECIMEN COLLECTED 12/27/24 14:25 Blood Culture - Preliminary Blood SPECIMEN COLLECTED A&P Assessment and plan 1. Severe hyperglycemia due to diabetes mellitus: 2. Malaise: Plan: Severe hyperglycemia with elevated anion gap with possible early ketoacidosis: Improvement in severe hyperglycemia and closure of anion gap, improvement in bicarb. Resolution of early DKA. Diet started overnight and he states has good appetite. Continue. Received Lantus last night, will resume his usual dose of Lantus 32 units tonight, monitor blood sugars. Optimize given severe hyperglycemia. [place] with him having not missed any insulin doses. Continue follow-up for urine and blood cultures to reassess for any smoldering residual/partially treated infection. Transferred to medical surgical floor. Discussed with nursing. Discussed with skilled nursing case manager. -Follow-up blood glucose. Continue to optimize control. Monitor for risk of hyper/hypoglycemia. Recurrent DKA. -Follow-up repeat chemistry. - Magnesium replenished. Repeat level. - Unclear trigger, assess for possible continued or recurrent infection as below. - Additionally will need to follow-up with endocrinology after discharge for continued optimization of blood glucose control, arrangements for insulin pump History of recent ESBL E. coli UTI with bacteremia : Recent hospitalization with urine and blood cultures positive for ESBL E. coli; prior outpatient antibiotic (Augmentin) did not cover organism; today?s UA overall unremarkable; patient notes urinary urgency. Reviewed urine and blood cultures, pending. Discussed with him. - Request repeat blood culture. - Repeat urine culture. - Empirically treat with a carbapenem; follow up culture results to guide therapy. Chronic left lower alonso ulcer : Followed by wound care; current dressing with small slough; no drainage or surrounding cellulitis. - Continue dressing changes as currently performed. - Continue follow-up with wound care. Type 1 diabetes mellitus (insulin-treated) : Resume Lantus 32 units. Premeal short acting insulin has been restarted yesterday. Sliding scale held for now until we can assess how he is responding to his usual insulin regimen but may need to be resumed to help with optimization of control with severe hyperglycemia. Monitor for risk of hypoglycemia. Monitor for control. Patient reports mealtime insulin and nightly Lantus 32?35 units; unaware of prior order for Lantus 70 units daily; working with endocrinology on insulin pump. - Follow up with endocrinology for continued blood glucose optimization. - Continue arrangements for insulin pump and ongoing glucose monitoring. Obstructive sleep apnea : Uses CPAP at night ordered. PDMP PDMP Reviewed: Not Reviewed Attestations 2 Medical Necessity Statement*: Continue hospitalization for assessment of management after early DKA, optimization of control of blood glucose with severe hyperglycemia, further assessment for possible residual and/or recurrent/partially treated complicated urinary tract infection with recent ESBL infection with bacteremia. and High MDM includes amount and/or complexity of data reviewed/ordered [ resulted lab(s)/test(s) and ordered lab(s)/test(s)] and described risk of complication, morbidity or mortality of management as documented Diagnoses Severe hyperglycemia due to diabetes mellitus E11.65 Malaise R53.81
[2024-12-28] MEDS: pantoprazole 40 mg SDV IVP (15:06)
--- NOTE | 2024-12-28 18:44 | PC.NURSE ---
Pt sat up in chair for majority of shift. Sinus rhythm noted on monitor. His blood sugars have been 231-277 this shift. No reports of discomfort or pain. He slept so hard last nigh he had been incontinent of urine. No further incontinence episodes. noted. Urgency noted. Over 600ml of urine output. Pt stated his new dexcom should be here tomorrow or next day. He also stated he had a glucometer, strips , syringes and insulin at home. He has a great appetite, all his meals finished off. His mother visited for most of the afternoon.
[2024-12-28] MEDS: insulin glargine 100 units/1 mL 32 UNIT SUBCUT (23:51)
[2024-12-29] VITALS (8 sets, daily range): BP systolic 130–191; BP diastolic 73–108; PULSE 70–85; RESP 15–26; TEMP 36.6–37.1; O2SAT 92–99
[2024-12-29 05:17] LABS: Hematocrit 39.2 % (37-53); Hemoglobin 12.70 g/dL (11.27-16.99); Mean Corpuscular HGB Conc 32.4 g/dL (30-55); Mean Corpuscular Hemoglobin 31.8 pg (27-33); Mean Corpuscular Volume 98.2 fl (82-101); Nucleated Red Blood Cells % 0 %; Platelet Count 440 10^3/cmm (157-399); Red Blood Count 3.99 10^6/uL (3.85-5.65); White Blood Count 8.24 10^3/uL (3.29-11.43)
[2024-12-29] MEDS: ATORVASTATIN 20 MG TABLET PO (05:38)
[2024-12-29 05:45] LABS: Alanine Aminotransferase 10 U/L (0-41); Albumin Level 3.2 g/dL (3.5-5.2); Alkaline Phosphatase 261 U/L (40-130); Anion Gap 15.7 (5-19); Aspartate Amino Transferase 15 U/L (0-40); Blood Urea Nitrogen 9 mg/dL (8-23); Calcium 9.3 mg/dL (8.5-10.5); Carbon Dioxide 31 mmol/L (22-29); Chloride 99 mmol/L (98-107); Creatinine Clr Calc Pharmacy 136.6139; Globulin 3.3 g/dL (1.3-4.6); Glucose 112 mg/dL (65-115); Osmolality Calculated 291 mOsm/kg (285-295); Potassium 4.7 mmol/L (3.5-5.1); Sodium 141 mmol/L (136-145); Total Protein 6.5 g/dL (6.6-8.7)
[2024-12-29] MEDS: meropenem 1,000 mg SDV 1000 MG IVP (07:57)
--- NOTE | 2024-12-29 08:24 | PM.DCS ---
Discharge Providers Date of Admission: 12/28/24 11:18 Date of Discharge: December 29, 2024 Attending Provider at Admission: Rosales Sommer Attending Provider at Discharge: Rosales Sommer Primary Care Provider: Harrison Hill MD Diagnoses at Discharge Discharge Diagnosis 1. Severe hyperglycemia due to diabetes mellitus: 2. Malaise: Reason for Visit Reason for Visit: Hyperglycemia Brief History: Case Morin is a 64 year old male with past medical history of type 1 diabetes and multiple hospitalizations for DKA, lower extremity diabetic ulcers followed by wound care, hypertension, gastroesophageal reflux disease, hypothyroidism, obstructive sleep apnea, asthma, and depression. He was brought to the hospital after EMS was called for a lift assist at home and found his blood sugar to be 600. EMS reports his Dexcom had fallen off. Patient is alert and oriented in the ER. He reports feeling unwell with some stomach pain and calling EMS. He described feeling the sensation of his prior DKA admission on December 15 and wanted to be seen to avoid vomiting like last time. He reports not missing any insulin doses recently. He attributes not wearing his Dexcom to losing it. He is seen by Dr. Hill and Dr. Ramirez, who is trying to get him approved for an insulin pump. His last A1c was 8.4 in October. He reports his daily insulin dose is 25 units Lispro premeal and 35 units basal Lantus before bed. He was not aware of any changes to his insulin dose. He has a prior order for 70 units Lantus which he was unaware. He has no chest pain shortness of breath fever chills sick contacts or dysuria. He does report urinary urgency. He has a chronic diabetic ulcer wound on his left leg that is seen by wound care. Hospital Course Hospital Course Treated for severe hyperglycemia with insulin drip with possible early/mild DKA, with resolution. Resumed on his normal insulin regimen. Additionally started on empiric treatment for suspected partially treated urinary tract infection. Urine culture is coming back with ESBL E. coli 20-30,000 CFU sensitive to carbapenem. He is otherwise feeling much better and back to his baseline. Sugars are well-controlled. Discussed with him discharge home with intramuscular ertapenem to complete antibiotic course. Continue with his current insulin regimen as discussed with 32 units of Lantus, lispro before meals with 18 units of lispro in the morning and 25 before lunch and dinner, discussed strict blood glucose monitoring and watching out that his sensor is attached, and follow-up with primary provider for reassessment and with endocrinology. He knows to seek medical attention in case of worsening or new concerning symptoms. Physical Exam Const: COMMON NORMALS: patient oriented x3 and alert GENERAL APPEARANCE: cooperative ORIENTATION/CONSCIOUSNESS: Yes awake HENMT: COMMON NORMALS: oropharynx normal Neck/C-Spine: COMMON NORMALS: no JVD Resp: COMMON NORMALS: normal respiratory effort and clear to auscultation bilaterally AUSCULTATION: clear to auscultation bilaterally Cardio: COMMON NORMALS: no JVD, regular rhythm, S1 normal heart sound present, S2 normal heart sound present and No murmurs present (Cardio) RHYTHM: regular rhythm HEART SOUNDS: S1 normal heart sound present and S2 normal heart sound present GI: COMMON NORMALS: Normal to inspection, nondistended, normoactive bowel sounds present, Soft to palpation and non-tender PALPATION: Yes Soft to palpation Extremity: COMMON NORMALS: no joint enlargement and no pedal edema OTHER: Lower alonso wound dressing Neuro: COMMON NORMALS: patient oriented x3 and moves all extremities SENSORIUM/ORIENTATION: Yes alert Discharge Data Studies Completed and Pending Completed Studies During Hospitalization Category Date Time Status XR acute abdomen series 27562 Stat Exams 12/27/24 11:06 Completed Pending at discharge Category Date Time Status Blood Culture Routine Lab 12/27/24 14:24 Results Complete Blood Count w/Auto AM LABS Lab 12/30/24 04:00 Ordered Comprehensive Metabolic Panel AM LABS Lab 12/30/24 04:00 Ordered Urine Culture Routine Lab 12/27/24 15:28 Results Radiology Impressions Chest/Abdomen X-ray 12/27/24 11:06 IMPRESSION: 1. No acute cardiopulmonary finding. 2. No acute abdominal process. Laboratory Results WBC 8.24 10^3/uL (3.29-11.43) 12/29/24 04:17 RBC 3.99 10^6/uL (3.85-5.65) 12/29/24 04:17 Hgb 12.70 g/dL (11.27-16.99) 12/29/24 04:17 Hct 39.2 % (37-53) 12/29/24 04:17 MCV 98.2 fl (82-101) 12/29/24 04:17 MCH 31.8 pg (27-33) 12/29/24 04:17 MCHC 32.4 g/dL (30-55) 12/29/24 04:17 RDW 13.5 % (12.1-15.1) 12/29/24 04:17 Plt Count 440 10^3/cmm (157-399) H 12/29/24 04:17 MPV 10.3 fL (7.4-10.4) 12/29/24 04:17 Neut % (Auto) 61.1 % 12/29/24 04:17 Lymph % (Auto) 26.8 % 12/29/24 04:17 [place] % (Auto) 7.5 % 12/29/24 04:17 Eos % (Auto) 3.6 % 12/29/24 04:17 Baso % (Auto) 0.6 % 12/29/24 04:17 Neut # (Auto) 5.03 10^3/uL (1.8-7.7) 12/29/24 04:17 Lymph # (Auto) 2.2 10^3/uL (0.8-4.8) 12/29/24 04:17 [place] # (Auto) 0.6 10^3/uL (0.2-0.9) 12/29/24 04:17 Eos # (Auto) 0.3 10^3/uL (0.0-0.8) 12/29/24 04:17 Baso # (Auto) 0.1 10^3/uL (0.0-0.1) 12/29/24 04:17 Nucleated RBC % (auto) 0 % 12/29/24 04:17 Nucleated RBCs # 0.0 /100WBC 12/29/24 04:17 Specimen Type Arterial 12/27/24 08:27 Sample Site Radial, right 12/27/24 08:27 ABG pH 7.38 (7.35-7.45) 12/27/24 08:27 ABG pCO2 34.8 mmHg (35-45) L 12/27/24 08:27 ABG pO2 79.6 mmHg (80.0-100.0) L 12/27/24 08:27 ABG PO2/FiO2 Ratio 379 12/27/24 08:27 ABG HCO3 20.7 mmol/L (22-26) L 12/27/24 08:27 ABG O2 Saturation 95.6 12/27/24 08:27 ABG Base Excess -3.8 mmol/L (-2.0-2.0) L 12/27/24 08:27 Rosas Test Pos 12/27/24 08:27 A-a O2 Gradient 3.2 mmHg (5-10) L 12/27/24 08:27 Hematocrit 38.0 % (42-52) L 12/27/24 08:27 Hgb O2 Saturation 93.6 % (95-100) L 12/27/24 08:27 Carboxyhemoglobin 0.9 %THgb (0.4-20.1) 12/27/24 08:27 Methemoglobin 1.2 % (0.4-1.5) 12/27/24 08:27 Total Hemoglobin 12.4 g/dL (14-18) L 12/27/24 08:27 Sodium 133.0 mmol/L (131-143) 12/27/24 08:27 Potassium 4.4 mmol/L (3.5-5.0) 12/27/24 08:27 Glucose 619.0 mg/dL (70-115) H 12/27/24 08:27 Ionized Calcium 1.2 mmol/L (1.1-1.4) 12/27/24 08:27 O2 Delivery Device Room air 12/27/24 08:27 FiO2 21.0 % 12/27/24 08:27 Job Service Specialist ID [place] 12/27/24 08:27 Sodium 141 mmol/L (136-145) 12/29/24 04:17 Potassium 4.7 mmol/L (3.5-5.1) 12/29/24 04:17 Chloride 99 mmol/L (98-107) 12/29/24 04:17 Carbon Dioxide 31 mmol/L (22-29) H 12/29/24 04:17 Anion Gap 15.7 (5-19) 12/29/24 04:17 BUN 9 mg/dL (8-23) 12/29/24 04:17 Creatinine 0.7 mg/dL (0.7-1.2) 12/29/24 04:17 GFR Calculation 113.9 mL/min (90-130) 12/29/24 04:17 Glucose 112 mg/dL (65-115) 12/29/24 04:17 POC Glucose 135 mg/dL (70-110) H 12/29/24 07:42 Calculated Osmolality 291 mOsm/kg (285-295) 12/29/24 04:17 Calcium 9.3 mg/dL (8.5-10.5) 12/29/24 04:17 Magnesium 2.2 mg/dL (1.7-2.3) 12/28/24 04:33 Total Bilirubin 0.3 mg/dL (0.15-1.2) 12/29/24 04:17 AST 15 U/L (0-40) 12/29/24 04:17 ALT 10 U/L (0-41) 12/29/24 04:17 Alkaline Phosphatase 261 U/L (40-130) H 12/29/24 04:17 Total Protein 6.5 g/dL (6.6-8.7) L 12/29/24 04:17 Albumin 3.2 g/dL (3.5-5.2) L 12/29/24 04:17 Globulin 3.3 g/dL (1.3-4.6) 12/29/24 04:17 Lipase 160 U/L (13-60) H 12/27/24 08:49 Urine Color Yellow (Yellow) 12/27/24 09:53 Urine Appearance Clear (CLEAR) 12/27/24 09:53 Urine pH 5.0 (5-7) 12/27/24 09:53 Ur Specific [place] 1.013 (1.005-1.030) 12/27/24 09:53 Urine Protein Negative (Negative) 12/27/24 09:53 Urine Glucose (UA) 2+ (Normal) H 12/27/24 09:53 Urine Ketones Trace (Negative) 12/27/24 09:53 Urine Blood Trace (Negative) A 12/27/24 09:53 Urine Nitrate Negative (Negative) 12/27/24 09:53 Urine Bilirubin Negative (Negative) 12/27/24 09:53 Urine Urobilinogen 0.2 mg/dL (Negative) 12/27/24 09:53 Ur Leukocyte Esterase Negative (Negative) 12/27/24 09:53 Urine RBC 0-2 /hpf (0-2) 12/27/24 09:53 Urine WBC 0-5 /hpf (0-5) 12/27/24 09:53 Ur Squamous Epith Cells 0-5 /hpf (0-5) 12/27/24 09:53 Amorphous Sediment Not Reportable 12/27/24 09:53 Urine Bacteria None seen /hpf (NONE) 12/27/24 09:53 Hyaline Casts 0.40 /lpf 12/27/24 09:53 Serum Ketones Negative (Negative) 12/27/24 08:49 Vitals Last Vital Signs Temp 97.9 F 12/29/24 04:00 Pulse 85 12/29/24 06:00 Resp 17 12/29/24 02:12 BP 174/105 12/29/24 04:00 Pulse Ox 96 12/29/24 02:12 O2 Del Method Room Air 12/29/24 04:00 O2 Flow Rate 2 12/28/24 23:17 Discharge Plan Discharge Patient Disposition: Home Condition: Stable Prescriptions: New ertapenem 1 gram recon soln 1 g IM DAILY 5 Days Qty: 5 0RF Continued fexofenadine [Hellen Allergy] 180 mg tablet 180 mg PO DAILY cholecalciferol (vitamin D3) 10 mcg (400 unit) capsule 10 mcg PO DAILY chromium picolinate 1,000 mcg tablet 1,000 mcg PO DAILY lutein 6 mg capsule 6 mg PO DAILY Rx Instructions: give with meal/snack aspirin [Adult Aspirin Regimen] 81 mg tablet,delayed release (DR/EC) 81 mg PO DAILY PRN (Reason: Pain) latanoprost 0.005 % drops 1 drp ophthalmic (eye) DAILY (DME) Ketone Urine Test Strip See Rx Instructions .Route Qty: 100 0RF Rx Instructions: As directed (DME) Diabetic shoes with 3 inserts See Rx Instructions .ROUTE .MEDSUPPLY Qty: 1 0RF Rx Instructions: As directed ascorbate calcium (vitamin C) 500 mg tablet 500 mg PO DAILY 90 Days Qty: 90 0RF (DME) pen needle, diabetic [TechLITE Pen Needle] 32 gauge x 5/32 needle See Rx Instructions .ROUTE .COMPLEX Qty: 400 0RF Dose Instruction: USE DIRECTED Rx Instructions: USE DIRECTED (DME) Dexcom G6 Transmitter Device See Rx Instructions .ROUTE .COMPLEX Qty: 1 0RF Dose Instruction: USE DIRECTED TO CHECK BLOOD GLUCOSE Rx Instructions: USE DIRECTED TO CHECK BLOOD GLUCOSE insulin lispro 100 unit/mL insulin pen See Rx Instructions .ROUTE .COMPLEX Qty: 90 1RF Dose Instruction: ADMINISTER 30 UNITS UNDER THE SKIN THREE TIMES DAILY BEFORE MEALS Rx Instructions: ADMINISTER 18 UNITS before breakfast and 25 units before lunch and dinner. zolpidem 10 mg tablet 10 mg PO DAILY Qty: 30 5RF (DME) Dexcom G6 Sensor Device See Rx Instructions .ROUTE .COMPLEX Qty: 9 1RF Dose Instruction: APPLY 1 SENSOR EVERY 10 DAYS DIRECTED Rx Instructions: APPLY 1 SENSOR EVERY 10 DAYS DIRECTED Glucagon Emergency Kit (human) 1 mg recon soln 1 mg SUBCUT Q20M PRN (Reason: hypoglycemia) Qty: 1 11RF Rx Instructions: until target blood sugar attained insulin glargine [Lantus Solostar U-100 Insulin] 100 unit/mL (3 mL) insulin pen 70 unit SUBCUT DAILY furosemide 40 mg tablet 40 mg PO DAILY atorvastatin 20 mg tablet 20 mg PO DAILY sertraline 100 mg tablet 150 mg PO DAILY metoprolol tartrate 50 mg tablet 50 mg PO BID levothyroxine 200 mcg tablet 200 mcg PO DAILY Santyl 250 unit/gram ointment 1 applic topical DAILY PRN (Reason: open wound) Rx Instructions: apply nickel thick to wound once daily. fluticasone propionate 50 mcg/actuation spray,suspension 2 spray intranasal DAILY thiamine mononitrate (vit B1) [Vitamin B-1 (mononitrate)] 100 mg Tablet 100 mg PO DAILY Qty: 30 0RF multivitamin with folic acid [Thera] 400 mcg Tablet 1 tab PO DAILY Qty: 30 0RF Discontinued amoxicillin-pot clavulanate [Augmentin] 500-125 mg tablet 1 tab PO Q12H Qty: 14 0RF Discharge Order = DC NOW: Discharge Order (Routine); Ordered 12/29/24 Ordered By: Rosales Sommer Referrals: Grant Ramirez MD [Physician, Endocrinology] - 7-10 days Referral Note: Severe hyperglycemia, recurrent DKA Clinic should call when they have coverage. Harrison Hill MD [Primary Care Provider, Family Practice] - 4-7 days Referral Note: Follow-up January 03, 2025 @ 11 a.m. Discharge Diet: Cardiac and Diabetic Patient Instructions: Ertapenem (By injection) (INVanz), How to Give an Intramuscular Injection (DC), Opioid Safety, Patient Portal & Carlos Alberto Instructions Activity Restrictions/Additional Instructions: Continue to monitor blood glucose at home, continue target glucose 100-150. Adjust insulin as per discussion. Avoid hypoglycemia. In case of increasing Lantus dose increase slowly by no more than 2-3 units/day. Decrease faster by 5-10 units in case of hypoglycemia. Complete antibiotic course with ertapenem for multidrug-resistant urinary tract infection. Follow-up with your primary doctor for follow-up including final cultures and reassessment of recovery. As discussed, in case of any worsening or similar or new concerning symptoms, seek medical attention. Discharge Attestations Time Spent in Discharge Care*: greater than 30 min Status at Discharge: Cognitive status at discharge: cognitively intact, Behavioral status at discharge: cooperative, Quality Metrics Clinical Quality Measures [ No reported AMI, CVA or VTE this stay] Coding Level of Care Code 52075 Total time (in minutes) for Discharge: 40 Diagnoses Severe hyperglycemia due to diabetes mellitus E11.65 Malaise R53.81
--- NOTE | 2024-12-29 11:35 | PC.NURSE ---
Discharge instructions: follow up appts, how to give intramuscular injections, Lantus, new abx, Provided and discussed. Pt demonstrated with motions on how to give IM. Pt discharge home with his mother.
== END 2024-12-29 11:35 | disposition home or self-care (01) | DRG 420 ==
LOC: ER 10:01 → ER IP 11:59 → ICU 17:01
PROVIDERS: Admitting Provider Internal Medicine; Emergency Provider Family Medicine; PCP Family Medicine; Visit Provider Internal Medicine
DX: E10.10 Type 1 diabetes mellitus with ketoacidosis without coma (principal); L97.221 Non-pressure chronic ulcer of left calf limited to breakdown of skin; I10 Essential (primary) hypertension; K21.9 Gastro-esophageal reflux disease without esophagitis; E03.9 Hypothyroidism, unspecified; G47.33 Obstructive sleep apnea (adult) (pediatric); J45.909 Unspecified asthma, uncomplicated; F32.A Depression, unspecified; Z79.4 Long term (current) use of insulin; E10.622 Type 1 diabetes mellitus with other skin ulcer; Z79.890 Hormone replacement therapy; Z79.82 Long term (current) use of aspirin; Z82.3 Family history of stroke; Z82.49 Family history of ischemic heart disease and other diseases of the circulatory system
CPT/HCPCS: 36415; 36416; 36600; 74022; 80048; 80051; 80053; 81001; 82009; 82330; 82805; 82947; 82962; 83690; 83735; 85025; 87040; 87077; 87086; 87186; 93005; 94660; 96365; 96366; 96367; 96372; 96375; 97116; 97161; 99291; G0378; J1650; J1815; J2185; J2470; J3475; J7030; J9999

== ENCOUNTER → 2025-01-02 14:20 | Outpatient (BNVA) | payer MEDICAID, SELFPAY | PROVIDERS: PCP Family Medicine; Visit Provider Thoracic Surgery (Cardiothoracic Vascular Surgery) | DX: E11.52 Type 2 diabetes mellitus with diabetic peripheral angiopathy with gangrene (principal); E11.622 Type 2 diabetes mellitus with other skin ulcer; L97.821 Non-pressure chronic ulcer of other part of left lower leg limited to breakdown of skin; I87.2 Venous insufficiency (chronic) (peripheral) | CPT/HCPCS: 97597; A6212 ==

== ENCOUNTER → 2025-01-09 13:08 | Outpatient (BNVA) | payer MEDICAID, SELFPAY | PROVIDERS: PCP Family Medicine; Visit Provider Thoracic Surgery (Cardiothoracic Vascular Surgery) | DX: E11.52 Type 2 diabetes mellitus with diabetic peripheral angiopathy with gangrene (principal); E11.622 Type 2 diabetes mellitus with other skin ulcer; L97.821 Non-pressure chronic ulcer of other part of left lower leg limited to breakdown of skin | CPT/HCPCS: 97597; A6212 ==

== ENCOUNTER → 2025-01-15 13:14 | Outpatient (BNVA) | payer MEDICAID, SELFPAY | PROVIDERS: PCP Family Medicine; Visit Provider Podiatrist Foot & Ankle Surgery | DX: E10.69 Type 1 diabetes mellitus with other specified complication (principal); L60.3 Nail dystrophy; Z79.4 Long term (current) use of insulin; I87.2 Venous insufficiency (chronic) (peripheral) | CPT/HCPCS: 11721 ==

== ENCOUNTER → 2025-01-16 14:16 | Outpatient (BNVA) | payer MEDICAID, SELFPAY | PROVIDERS: PCP Family Medicine; Visit Provider Thoracic Surgery (Cardiothoracic Vascular Surgery) | DX: L97.821 Non-pressure chronic ulcer of other part of left lower leg limited to breakdown of skin (principal); Z09 Encounter for follow-up examination after completed treatment for conditions other than malignant neoplasm | CPT/HCPCS: 99212 ==

== ENCOUNTER → 2025-01-17 12:25 | Outpatient (BNVA) | payer MEDICAID, SELFPAY | PROVIDERS: PCP Family Medicine; Visit Provider Family Medicine | DX: E10.65 Type 1 diabetes mellitus with hyperglycemia (principal) | CPT/HCPCS: 80053; 85025 ==

== ENCOUNTER → 2025-01-30 14:24 | Outpatient (BNVA) | payer MEDICAID, SELFPAY | PROVIDERS: PCP Family Medicine; Visit Provider Thoracic Surgery (Cardiothoracic Vascular Surgery) | DX: E11.52 Type 2 diabetes mellitus with diabetic peripheral angiopathy with gangrene (principal); E11.622 Type 2 diabetes mellitus with other skin ulcer; L97.821 Non-pressure chronic ulcer of other part of left lower leg limited to breakdown of skin | CPT/HCPCS: 97597; A6212 ×2 ==

== ENCOUNTER 2025-02-06 08:57 | Emergency (ER) | payer MEDICAID, SELFPAY ==
[2025-02-06 08:58] VITALS: BP 175/70; PULSE 99; RESP 18; TEMP 36.9; O2SAT 95
--- NOTE | 2025-02-06 09:00 | XR_ITS ---
WS: [id number] XR chest 1V portable [id number] REASON FOR EXAM: weakness FINDINGS: The chest is unchanged compared to 12/15/2024. The heart and mediastinum are within normal limits. Calcified granulomas disease bilaterally. No acute pulmonary parenchymal or pleural abnormality. Mild thoracic scoliosis with moderate degenerative spondylosis. XR/XR chest 1V portable [id number] IMPRESSION: Stable chest without acute abnormality.
--- NOTE | 2025-02-06 09:01 | ECG_ITS ---
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 Measurements Intervals [place] Rate: 97 P: 46 OR: 182 QRS: 4 QRSD: 78 T: 39 QT: 329 QTc: 420 Interpretive Statements SINUS RHYTHM LOW QRS VOLTAGE IN PRECORDIAL LEADS [QRS DEFLECTION < 1.0 mV IN CHEST LEADS] Compared to ECG 12/27/2024 08:55:03 Low QRS voltage now present Myocardial infarct finding no longer present Electronically Signed On 02-08-2025 17:34:01 PIPE [employer]TER [employer]INE by Eleno Islas M.D. [email or web address]
--- NOTE | 2025-02-06 09:03 | W.ED.GENADLT ---
HPI - General Adult General: Chief complaint: Weakness Stated complaint: DKA, Weakness Time Seen by Provider: 02/06/25 08:57 Source: patient and EMS Mode of arrival: EMS Limitations: no limitations History of Present Illness: 64-year-old male multiple medical issues including diabetes insulin-dependent. Patient states that over the last 4 to 5 days he has had a GI bug states has had some diarrhea along with vomiting. States he had called EMS for lift assist he is having some generalized weakness patient is also hyperglycemic blood sugar with EMS was in the 300s has had a history of DKA in the past. He denies any fevers or pain. Denies any worse improved factors. Related Data Home Medications ?Medication ?Instructions ?Recorded ?Confirmed cholecalciferol (vitamin D3) 10 10 mcg PO DAILY 04/01/20 01/17/25 mcg (400 unit) capsule fexofenadine 180 mg tablet 180 mg PO DAILY 04/01/20 01/17/25 (Hellen Allergy) aspirin 81 mg tablet,delayed 81 mg PO DAILY PRN Pain 11/06/21 01/17/25 release (Adult Aspirin Regimen) chromium picolinate 1,000 mcg 1,000 mcg PO DAILY 11/06/21 01/17/25 tablet latanoprost 0.005 % eye drops 1 drp ophthalmic (eye) DAILY 11/06/21 01/17/25 lutein 6 mg capsule 6 mg PO DAILY 11/06/21 01/17/25 collagenase clostridium histo. 250 1 applic topical DAILY PRN open 11/24/24 01/17/25 unit/gram topical ointment (Santyl) wound fluticasone propionate 50 2 spray intranasal DAILY 11/24/24 01/17/25 mcg/actuation nasal spray,suspension furosemide 40 mg tablet 40 mg PO DAILY 11/24/24 01/17/25 levothyroxine 200 mcg tablet 200 mcg PO DAILY 11/24/24 01/17/25 metoprolol tartrate 50 mg tablet 50 mg PO BID 11/24/24 01/17/25 sertraline 100 mg tablet 150 mg PO DAILY 11/24/24 01/17/25 insulin glargine 100 unit/mL (3 70 unit SUBCUT DAILY 12/27/24 01/17/25 mL) subcutaneous pen (Lantus Solostar U-100 Insulin) Previous Rx's ?Medication ?Instructions ?Recorded Diabetic shoes with 3 inserts #1 ea 08/26/20 ascorbate calcium (vitamin C) 500 500 mg PO DAILY 90 days #90 tabs 09/15/21 mg tablet pen needle, diabetic 32 gauge x #400 ea 12/10/23 (TechLITE Pen Needle) insulin lispro 100 unit/mL See Rx Instructions .Route 09/29/24 subcutaneous pen .COMPLEX #90 mL zolpidem 10 mg tablet 10 mg PO DAILY #30 tabs 10/31/24 glucagon 1 mg solution for 1 mg SUBCUT Q20M PRN hypoglycemia 11/20/24 injection (Glucagon Emergency Kit) #1 ea acetone (urine) test (Ketone Urine #100 ea 12/04/24 Test strips) multivitamin with folic acid 400 1 tab PO DAILY #30 tabs 12/17/24 mcg tablet (Thera) thiamine mononitrate (vit B1) 100 100 mg PO DAILY #30 tabs 12/17/24 mg tablet (Vitamin B-1 (mononitrate)) atorvastatin 20 mg tablet See Rx Instructions .Route 01/02/25 .COMPLEX #90 tabs blood-glucose sensor (Dexcom G6 #9 ea 01/02/25 Sensor device) blood-glucose transmitter (Dexcom #1 ea 01/02/25 G6 Transmitter device) blood-glucose,air gun operator,cont #1 ea 01/17/25 (Dexcom G6 Supervising Architect) meloxicam 15 mg tablet 15 mg PO DAILY #30 tabs 01/24/25 cephalexin 500 mg capsule 500 mg PO TID 7 days #21 caps 02/06/25 Allergies Allergy/AdvReac Type Severity Reaction Status Date / Time sulfamethoxazole (From Allergy Severe rash Verified 01/15/25 13:17 Bactrim) trimethoprim (From Bactrim) Allergy Severe rash Verified 01/15/25 13:17 PFS ED PFS: Medical History Knee osteoarthritis Arthritis Hypertension Diabetes type I Acid reflux Depression Asthma Hypothyroidism Polyp in nasopharynx Sleep apnea History of femoral angiogram Surgical History H/O arthroscopic knee surgery Family History Mother Cancer Diabetes Hypertension Hyperlipidemia Hypothyroidism Father Stroke Hypertension Hyperlipidemia Arthritis Social History Smoking and tobacco/nicotine status: never used tobacco/nicotine Second hand smoke exposure: No Alcohol intake: current Alcohol intake frequency: holidays/special occasions only Physical Exam Const: COMMON NORMALS: patient oriented x3 HENMT: COMMON NORMALS: normocephalic and atraumatic HEAD & SCALP: normocephalic and atraumatic Neck/C-Spine: COMMON NORMALS: full ROM and supple Chest: COMMONS NORMALS: normal inspection of the chest Resp: COMMON NORMALS: normal respiratory effort, No retractions, No use of accessory muscles and clear to auscultation bilaterally AUSCULTATION: clear to auscultation bilaterally Cardio: COMMON NORMALS: regular rate, regular rhythm and No murmurs present (Cardio) RATE: regular rate RHYTHM: regular rhythm GI: COMMON NORMALS: Normal to inspection, nondistended, normoactive bowel sounds present, Soft to palpation, non-tender and no masses PALPATION: Yes Soft to palpation Extremity: COMMON NORMALS: normal to inspection and full ROM Neuro: COMMON NORMALS: patient oriented x3, moves all extremities and no focal motor deficits Psych: COMMON NORMALS: mental status grossly normal, Normal thought process present and cooperative THOUGHT PROCESS: Normal thought process present Skin: COMMON NORMALS: no rashes or lesions noted and no wounds GENERAL SKIN EXAM: no rashes or lesions noted Course Vital Signs: Vital signs: Vital Signs Temperature 98.4 F 02/06/25 08:58 Pulse Rate 89 02/06/25 10:23 Respiratory Rate 18 02/06/25 08:58 Blood Pressure 147/85 02/06/25 10:23 Pulse Oximetry 98 02/06/25 10:23 Oxygen Delivery Me thod Nasal Cannula 02/06/25 08:58 Oxygen Flow Rate 3 02/06/25 08:58 MDM - General Adult Medical Decision Making 64-year-old male who presents with generalized weakness differential includes DKA, pneumonia, UTI, anemia. Blood work here showed no significant abnormality he is not DKA his white count here is normal urinalysis does show UTI. He does feel improved after IV fluids. He had no vomiting or diarrhea has been able to ambulate here. Did give him IV Rocephin will start him on Keflex for his UTI feel he is stable for discharge at this time I did interpret his chest x-ray myself that showed no pneumonia. I did go over all these findings with him he is to follow-up with his PCP. And return if worsening he understands agrees to plan. EKG interpreted by me at 906 normal sinus rhythm heart rate [address] elevation QRS 78 QTc 384 Medical Records I reviewed the patient's medical records. Lab Data I reviewed the patient's lab results. 02/06/25 09:00 02/06/25 10:08 Radiology Impressions Chest X-Ray 02/06/25 09:00 IMPRESSION: Stable chest without acute abnormality. Laboratory Results WBC 8.26 10^3/uL (3.29-11.43) 02/06/25 09:00 RBC 3.99 10^6/uL (3.85-5.65) 02/06/25 09:00 Hgb 12.40 g/dL (11.27-16.99) 02/06/25 09:00 Hct 37.3 % (37-53) 02/06/25 09:00 MCV 93.5 fl (82-101) 02/06/25 09:00 MCH 31.1 pg (27-33) 02/06/25 09:00 MCHC 33.2 g/dL (30-55) 02/06/25 09:00 RDW 13.5 % (12.1-15.1) 02/06/25 09:00 Plt Count 219 10^3/cmm (157-399) 02/06/25 09:00 MPV 10.5 fL (7.4-10.4) H 02/06/25 09:00 Neut % (Auto) 77.2 % 02/06/25 09:00 Lymph % (Auto) 8.7 % 02/06/25 09:00 [place] % (Auto) 12.2 % 02/06/25 09:00 Eos % (Auto) 1.3 % 02/06/25 09:00 Baso % (Auto) 0.4 % 02/06/25 09:00 Neut # (Auto) 6.37 10^3/uL (1.8-7.7) 02/06/25 09:00 Lymph # (Auto) 0.7 10^3/uL (0.8-4.8) L 02/06/25 09:00 [place] # (Auto) 1.0 10^3/uL (0.2-0.9) H 02/06/25 09:00 Eos # (Auto) 0.1 10^3/uL (0.0-0.8) 02/06/25 09:00 Baso # (Auto) 0.0 10^3/uL (0.0-0.1) 02/06/25 09:00 Nucleated RBC % (auto) 0 % 02/06/25 09:00 Nucleated RBCs # 0.0 /100WBC 02/06/25 09:00 Specimen Type Arterial 02/06/25 09:05 Sample Site Radial, right 02/06/25 09:05 ABG pH 7.52 (7.35-7.45) H 02/06/25 09:05 ABG pCO2 33.6 mmHg (35-45) L 02/06/25 09:05 ABG pO2 102.0 mmHg (80.0-100.0) H 02/06/25 09:05 ABG PO2/FiO2 Ratio 283 02/06/25 09:05 ABG HCO3 27.1 mmol/L (22-26) H 02/06/25 09:05 ABG Base Excess 4.3 mmol/L (-2.0-2.0) H 02/06/25 09:05 Rosas Test Pos 02/06/25 09:05 Hematocrit 37.3 % (42-52) L 02/06/25 09:05 Hgb O2 Saturation 97.6 % (95-100) 02/06/25 09:05 Carboxyhemoglobin 1.2 %THgb (0.4-20.1) 02/06/25 09:05 Methemoglobin < 0.0 % (0.4-1.5) L 02/06/25 09:05 Total Hemoglobin 12.2 g/dL (14-18) L 02/06/25 09:05 O2 Delivery Device Nc 02/06/25 09:05 O2 Liters/Min 4.0 % 02/06/25 09:05 FiO2 36.0 % 02/06/25 09:05 Broomcorn Seeder ID Broma 02/06/25 09:05 Sodium 132 mmol/L (136-145) L 02/06/25 10:08 Potassium 4.0 mmol/L (3.5-5.1) 02/06/25 10:08 Chloride 97 mmol/L (98-107) L 02/06/25 10:08 Carbon Dioxide 25 mmol/L (22-29) 02/06/25 10:08 Anion Gap 14.0 (5-19) 02/06/25 10:08 BUN 11 mg/dL (8-23) 02/06/25 10:08 Creatinine 0.8 mg/dL (0.7-1.2) 02/06/25 10:08 GFR Calculation 97.6 mL/min (90-130) 02/06/25 10:08 Glucose 311 mg/dL (65-115) H 02/06/25 10:08 POC Glucose 280 mg/dL (70-110) H 02/06/25 09:07 Calculated Osmolality 285 mOsm/kg (285-295) 02/06/25 10:08 Calcium 8.7 mg/dL (8.5-10.5) 02/06/25 10:08 Total Bilirubin 0.7 mg/dL (0.15-1.2) 02/06/25 10:08 AST 12 U/L (0-40) 02/06/25 10:08 ALT 10 U/L (0-41) 02/06/25 10:08 Alkaline Phosphatase 171 U/L (40-130) H 02/06/25 10:08 Total Protein 6.3 g/dL (6.6-8.7) L 02/06/25 10:08 Albumin 3.2 g/dL (3.5-5.2) L 02/06/25 10:08 Globulin 3.1 g/dL (1.3-4.6) 02/06/25 10:08 Lipase 22 U/L (13-60) 02/06/25 10:08 Urine Color Yellow (Yellow) 02/06/25 09:53 Urine Appearance Clear (CLEAR) 02/06/25 09:53 Urine pH 5.5 (5-7) 02/06/25 09:53 Ur Specific [place] 1.018 (1.005-1.030) 02/06/25 09:53 Urine Protein 2+ (Negative) A 02/06/25 09:53 Urine Glucose (UA) 2+ (Normal) H 02/06/25 09:53 Urine Ketones Trace (Negative) 02/06/25 09:53 Urine Blood 2+ (Negative) A 02/06/25 09:53 Urine Nitrate Positive (Negative) A 02/06/25 09:53 Urine Bilirubin Negative (Negative) 02/06/25 09:53 Urine Urobilinogen 1.0 mg/dL (Negative) 12 09:53 Ur Leukocyte Esterase Trace (Negative) A 02/06/25 09:53 Urine RBC 6-10 /hpf (0-2) 12 09:53 Urine WBC 21-50 /hpf (0-5) H 02/06/25 09:53 Ur Squamous Epith Cells 0-5 /hpf (0-5) 12 09:53 Amorphous Sediment Not Reportable 02/06/25 09:53 Urine Bacteria 4+ /hpf (NONE) H 02/06/25 09:53 Hyaline Casts 1.65 /lpf 02/06/25 09:53 Serum Ketones Negative (Negative) 02/06/25 10:08 All radiology interpretation(s) finalized by discharge Discharge Plan Discharge Patient Disposition: Home Clinical Impression: Acute cystitis Condition: Stable Prescriptions: New cephalexin 500 mg capsule 500 mg PO TID 7 Days Qty: 21 0RF No Action fexofenadine [Hellen Allergy] 180 mg tablet 180 mg PO DAILY cholecalciferol (vitamin D3) 10 mcg (400 unit) capsule 10 mcg PO DAILY (DME) Dexcom G6 Supervising Architect Misc See Rx Instructions .Route Qty: 1 1RF Rx Instructions: As directed chromium picolinate 1,000 mcg tablet 1,000 mcg PO DAILY lutein 6 mg capsule 6 mg PO DAILY Rx Instructions: give with meal/snack aspirin [Adult Aspirin Regimen] 81 mg tablet,delayed release (DR/EC) 81 mg PO DAILY PRN (Reason: Pain) latanoprost 0.005 % drops 1 drp ophthalmic (eye) DAILY (DME) Ketone Urine Test Strip See Rx Instructions .Route Qty: 100 0RF Rx Instructions: As directed (DME) Diabetic shoes with 3 inserts See Rx Instructions .ROUTE .MEDSUPPLY Qty: 1 0RF Rx Instructions: As directed ascorbate calcium (vitamin C) 500 mg tablet 500 mg PO DAILY 90 Days Qty: 90 0RF (DME) pen needle, diabetic [TechLITE Pen Needle] 32 gauge x 5/32 needle See Rx Instructions .ROUTE .COMPLEX Qty: 400 0RF Dose Instruction: USE DIRECTED Rx Instructions: USE DIRECTED insulin lispro 100 unit/mL insulin pen See Rx Instructions .ROUTE .COMPLEX Qty: 90 1RF Dose Instruction: ADMINISTER 30 UNITS UNDER THE SKIN THREE TIMES DAILY BEFORE MEALS Rx Instructions: ADMINISTER 18 UNITS before breakfast and 25 units before lunch and dinner. zolpidem 10 mg tablet 10 mg PO DAILY Qty: 30 5RF Glucagon Emergency Kit (human) 1 mg recon soln 1 mg SUBCUT Q20M PRN (Reason: hypoglycemia) Qty: 1 11RF Rx Instructions: until target blood sugar attained atorvastatin 20 mg tablet See Rx Instructions .ROUTE .COMPLEX Qty: 90 3RF Dose Instruction: TAKE 1 TABLET BY MOUTH DAILY Rx Instructions: TAKE 1 TABLET BY MOUTH DAILY (DME) Dexcom G6 Sensor Device See Rx Instructions .ROUTE .COMPLEX Qty: 9 1RF Dose Instruction: APPLY 1 SENSOR EVERY 10 DAYS DIRECTED Rx Instructions: APPLY 1 SENSOR EVERY 10 DAYS DIRECTED (DME) Dexcom G6 Transmitter Device See Rx Instructions .ROUTE .COMPLEX Qty: 1 0RF Dose Instruction: USE DIRECTED TO CHECK BLOOD GLUCOSE Rx Instructions: USE DIRECTED TO CHECK BLOOD GLUCOSE meloxicam 15 mg tablet 15 mg PO DAILY Qty: 30 5RF insulin glargine [Lantus Solostar U-100 Insulin] 100 unit/mL (3 mL) insulin pen 70 unit SUBCUT DAILY furosemide 40 mg tablet 40 mg PO DAILY sertraline 100 mg tablet 150 mg PO DAILY metoprolol tartrate 50 mg tablet 50 mg PO BID levothyroxine 200 mcg tablet 200 mcg PO DAILY Santyl 250 unit/gram ointment 1 applic topical DAILY PRN (Reason: open wound) Rx Instructions: apply nickel thick to wound once daily. fluticasone propionate 50 mcg/actuation spray,suspension 2 spray intranasal DAILY thiamine mononitrate (vit B1) [Vitamin B-1 (mononitrate)] 100 mg Tablet 100 mg PO DAILY Qty: 30 0RF multivitamin with folic acid [Thera] 400 mcg Tablet 1 tab PO DAILY Qty: 30 0RF Discharge Orders: Discharge ED (Routine); Ordered 02/06/25 Ordered By: Osmar Leonard Referrals: Harrison Hill MD [Primary Care Provider, Family Practice] - 4-7 days Discharge Diet: Advance as tolerated Discharge Activity: Resume usual activity Patient Instructions: Urinary Tract Infection in Men (ED) Print Language: Cymro Coding Level of Care Code ED Lead Retail Sales Associate for Yenifer Levy
[2025-02-06 09:11] LABS: Hematocrit 37.3 % (37-53); Hemoglobin 12.40 g/dL (11.27-16.99); Mean Corpuscular HGB Conc 33.2 g/dL (30-55); Mean Corpuscular Hemoglobin 31.1 pg (27-33); Mean Corpuscular Volume 93.5 fl (82-101); Nucleated Red Blood Cells % 0 %; Platelet Count 219 10^3/cmm (157-399); Red Blood Count 3.99 10^6/uL (3.85-5.65); White Blood Count 8.26 10^3/uL (3.29-11.43)
[2025-02-06 09:20] LABS: ABG PCO2 33.6 mmHg (35-45); ABG PH Result 7.52 (7.35-7.45); Arterial Blood Gas Hematocrit 37.3 % (42-52); Blood Gas Allen Test Pos; Blood Gas LPM 4.0 %; Blood Gas Operator Identificat BROMA; Blood Gas Sample Site Radial, right; Blood Gas Sample Type Arterial; Carboxyhemoglobin 1.2 %THgb (0.4-20.1); HCO3 ABG 27.1 mmol/L (22-26); Methemoglobin < 0.0 % (0.4-1.5); PO2 ABG 102.0 mmHg (80.0-100.0); PO2 FiO2 Ratio Arterial Blood 283
[2025-02-06] MEDS: ondansetron 2 mg/ML SDV 2 mL 4 MG IVP (09:22)
[2025-02-06 10:06] LABS: Glucose Urine UA 2+ (Normal); Nitrate Urine Positive (Negative); Specific Gravity, Urine 1.018 (1.005-1.030)
[2025-02-06 10:11] LABS: Add Urine Microscopic? YES
[2025-02-06 10:23] VITALS: BP 147/85; PULSE 89; O2SAT 98
[2025-02-06 10:37] LABS: Alanine Aminotransferase 10 U/L (0-41); Albumin Level 3.2 g/dL (3.5-5.2); Alkaline Phosphatase 171 U/L (40-130); Anion Gap 14.0 (5-19); Aspartate Amino Transferase 12 U/L (0-40); Blood Urea Nitrogen 11 mg/dL (8-23); Calcium 8.7 mg/dL (8.5-10.5); Carbon Dioxide 25 mmol/L (22-29); Chloride 97 mmol/L (98-107); Globulin 3.1 g/dL (1.3-4.6); Glucose 311 mg/dL (65-115); Lipase 22 U/L (13-60); Osmolality Calculated 285 mOsm/kg (285-295); Potassium 4.0 mmol/L (3.5-5.1); Sodium 132 mmol/L (136-145); Total Protein 6.3 g/dL (6.6-8.7)
[2025-02-06 10:38] LABS: Ketone (Acetest) Serum Negative (Negative)
[2025-02-06] MEDS: cefTRIAXone 1,000 mg SDV 1000 MG IVP (10:48)
[2025-02-06 11:06] VITALS: BP 145/75; PULSE 92; O2SAT 99
== END 2025-02-06 11:08 | disposition home or self-care (01) ==
PROVIDERS: Emergency Provider Emergency Medicine; PCP Family Medicine
DX: N30.00 Acute cystitis without hematuria (principal); E10.9 Type 1 diabetes mellitus without complications; I10 Essential (primary) hypertension; K21.9 Gastro-esophageal reflux disease without esophagitis; E03.9 Hypothyroidism, unspecified; Z79.82 Long term (current) use of aspirin; Z79.4 Long term (current) use of insulin
CPT/HCPCS: 36416; 36600; 71045; 80053; 81001; 82009; 82805; 82962; 83690; 85025; 87077; 87086; 87186; 93005; 96374; 96375; 99285; J0696; J2405; J7030

== ENCOUNTER 2025-02-21 06:14 | Emergency (ER) | payer MEDICAID, SELFPAY ==
[2025-02-21 06:15] VITALS: BP 152/83; PULSE 76; RESP 18; TEMP 37.1; O2SAT 98; BMI 34.2
--- NOTE | 2025-02-21 06:20 | XR_ITS ---
WS: [id number] Portable AP upright chest, 02/21/2025 Clinical Data: Weakness Comparison: Portable chest, 02/06/2025 Findings: No nodules, masses or effusions are seen. The heart is normal. The pulmonary vascularity is not increased. No pneumonia or pneumothorax is seen. The aortic arch and descending thoracic aorta show mild tortuosity. There is osteoarthritis of both shoulder joints. XR/XR chest 1V portable [id number] Impression: Atherosclerosis.
--- NOTE | 2025-02-21 06:21 | ECG_ITS ---
[email or web address]: 2025-02-21 Pat Name: Case Morin Department: Room: Gender: Male Hvac Manager: : [id number] Requested By: Indiana Wilson Order Number: [id number] Isabelle MD: GRADY BELTRAN Measurements Intervals [place] Rate: 71 P: 49 CO: 219 QRS: 15 QRSD: 82 T: 31 QT: 395 QTc: 430 Interpretive Statements SINUS RHYTHM WITH FIRST DEGREE AV BLOCK Compared to ECG 02/06/2025 09:06:21 First degree AV block now present Electronically Signed On 02-21-2025 20:15:59 DECK LID FITTER by GRADY BELTRAN [email or web address]
--- NOTE | 2025-02-21 06:25 | W.ED.WEAKNES ---
HPI - Weakness General: Chief complaint: Weakness Stated complaint: Weakness and Possible ETOH Time Seen by Provider: 02/21/25 06:19 History of Present Illness: 64-year-old man with a history of chronic venous insufficiency, hypothyroidism, obesity, midline hernia, depression, diabetes, hypertension, GERD and sleep apnea who presents to the emergency room by ambulance with generalized weakness. He says he slid out of bed and could not get up. He says he feels dizzy. He reports he drinks a half of a glass of vodka. EMS reports that this was an extremely large glass. He says generalized weakness but no focal deficits. No fevers. No chest pain. No abdominal pain. He has some nausea. Related Data Home Medications ?Medication ?Instructions ?Recorded ?Confirmed cholecalciferol (vitamin D3) 10 10 mcg PO DAILY 04/01/20 01/17/25 mcg (400 unit) capsule fexofenadine 180 mg tablet 180 mg PO DAILY 04/01/20 01/17/25 (Hellen Allergy) aspirin 81 mg tablet,delayed 81 mg PO DAILY PRN Pain 11/06/21 01/17/25 release (Adult Aspirin Regimen) chromium picolinate 1,000 mcg 1,000 mcg PO DAILY 11/06/21 01/17/25 tablet latanoprost 0.005 % eye drops 1 drp ophthalmic (eye) DAILY 11/06/21 01/17/25 lutein 6 mg capsule 6 mg PO DAILY 11/06/21 01/17/25 collagenase clostridium histo. 250 1 applic topical DAILY PRN open 11/24/24 01/17/25 unit/gram topical ointment (Santyl) wound fluticasone propionate 50 2 spray intranasal DAILY 11/24/24 01/17/25 mcg/actuation nasal spray,suspension furosemide 40 mg tablet 40 mg PO DAILY 11/24/24 01/17/25 levothyroxine 200 mcg tablet 200 mcg PO DAILY 11/24/24 01/17/25 metoprolol tartrate 50 mg tablet 50 mg PO BID 11/24/24 01/17/25 sertraline 100 mg tablet 150 mg PO DAILY 11/24/24 01/17/25 insulin glargine 100 unit/mL (3 70 unit SUBCUT DAILY 12/27/24 01/17/25 mL) subcutaneous pen (Lantus Solostar U-100 Insulin) Previous Rx's ?Medication ?Instructions ?Recorded Diabetic shoes with 3 inserts #1 ea 08/26/20 ascorbate calcium (vitamin C) 500 500 mg PO DAILY 90 days #90 tabs 09/15/21 mg tablet pen needle, diabetic 32 gauge x #400 ea 12/10/23 (TechLITE Pen Needle) insulin lispro 100 unit/mL See Rx Instructions .Route 09/29/24 subcutaneous pen .COMPLEX #90 mL zolpidem 10 mg tablet 10 mg PO DAILY #30 tabs 10/31/24 glucagon 1 mg solution for 1 mg SUBCUT Q20M PRN hypoglycemia 11/20/24 injection (Glucagon Emergency Kit) #1 ea acetone (urine) test (Ketone Urine #100 ea 12/04/24 Test strips) multivitamin with folic acid 400 1 tab PO DAILY #30 tabs 12/17/24 mcg tablet (Thera) thiamine mononitrate (vit B1) 100 100 mg PO DAILY #30 tabs 12/17/24 mg tablet (Vitamin B-1 (mononitrate)) atorvastatin 20 mg tablet See Rx Instructions .Route 01/02/25 .COMPLEX #90 tabs blood-glucose sensor (Dexcom G6 #9 ea 01/02/25 Sensor device) blood-glucose transmitter (Dexcom #1 ea 01/02/25 G6 Transmitter device) blood-glucose,instrument and control technician,cont #1 ea 01/17/25 (Dexcom G6 Automatic Toe Laster) meloxicam 15 mg tablet 15 mg PO DAILY #30 tabs 01/24/25 Allergies Allergy/AdvReac Type Severity Reaction Status Date / Time sulfamethoxazole (From Allergy Severe rash Verified 01/15/25 13:17 Bactrim) trimethoprim (From Bactrim) Allergy Severe rash Verified 01/15/25 13:17 Review of Systems Narrative: Constitutional symptoms: Negative except as documented in HPI. Skin symptoms: Negative except as documented in HPI. Eye symptoms: Negative except as documented in HPI. ENMT symptoms: Negative except as documented in HPI. Respiratory symptoms: Negative except as documented in HPI. Cardiovascular symptoms: Negative except as documented in HPI. Gastrointestinal symptoms: Negative except as documented in HPI. Genitourinary symptoms: Negative except as documented in HPI. Musculoskeletal symptoms: Negative except as documented in HPI. Neurologic symptoms: Negative except as documented in HPI. Psychiatric symptoms: Negative except as documented in HPI. Endocrine symptoms: Negative except as documented in HPI. PFS ED PFSH: Medical History (Updated 02/21/25 @ 08:56 by Indiana Jack MD) Knee osteoarthritis Arthritis Hypertension Diabetes type I Acid reflux Depression Asthma Hypothyroidism Polyp in nasopharynx Sleep apnea History of femoral angiogram Surgical History H/O arthroscopic knee surgery Family History Mother Cancer Diabetes Hypertension Hyperlipidemia Hypothyroidism Father Stroke Hypertension Hyperlipidemia Arthritis Social History Smoking and tobacco/nicotine status: never used tobacco/nicotine Second hand smoke exposure: No Alcohol intake: current Alcohol intake frequency: holidays/special occasions only Physical Exam Narrative: EXAM NARRATIVE: General: Alert, no acute distress. Skin: Warm, dry. Head: Normocephalic, atraumatic. Neck: Supple, trachea midline. Eye: Extraocular movements are intact. Ears, nose, mouth and throat: Tacky oral mucosa Cardiovascular: Regular, Normal peripheral perfusion. Respiratory: Lungs are clear to auscultation, respirations are non-labored, breath sounds are equal, Symmetrical chest wall expansion. Gastrointestinal: Soft, Nontender, Non distended Musculoskeletal: Normal ROM, no deformity. Neurological: Alert and oriented, No focal neurological deficit observed. Psychiatric: Cooperative, patient does appear like he might be intoxicated Course Vital Signs: Vital signs: Vital Signs Temperature 98.7 F 02/21/25 06:15 Pulse Rate 74 02/21/25 10:07 Respiratory Rate 18 02/21/25 06:15 Blood Pressure 160/85 02/21/25 10:07 Pulse Oximetry 98 02/21/25 10:07 Oxygen Delivery Me thod Room Air 02/21/25 06:34 MDM - Weakness Medical Decision Making Medical decision making Patient's reason for coming to the emergency room: Generalized weakness Social determinants: patient is disabled I reviewed the patient's medical record. 64-year-old man with a history of chronic venous insufficiency, hypothyroidism, obesity, midline hernia, depression, diabetes, hypertension, GERD and sleep apnea I reviewed the patient's current home meds Patient is insulin-dependent. No anticoagulation Alternate historians: None Differential diagnosis for patient presenting with generalized weakness including but not limited to and based on the above HPI, review of systems and physical exam: Sepsis. Dehydration. Renal failure. Electrolyte abnormalities. Anemia. Congestive heart failure. Hypotension. Coronary syndrome. Hepatitis. Cirrhosis. Infections such as pneumonia, urinary tract infection, [place] illness, Cellulitis, Viral infections including influenza and Covid-19. Workup: labwork and lab/exam driven imaging ordered to evaluate, rule in and rule out above pathologies. EKG: Time 6:26 AM. Rate 71. Normal sinus rhythm, No ST-T changes, no ectopy, first degree AV Block, EP Interpretation. This was reviewed and interpreted by myself the ER physician at 6:30 AM Chest x-ray: No acute process. No infiltrate. No pneumothorax. This was reviewed and interpreted by myself the emergency room physician. I also reviewed the radiology report. Lab Review: Laboratory results were reviewed and interpreted by myself the emergency room physician. Blood alcohol level is 190. Otherwise lab work is unremarkable. No infection. No renal failure. No leukocytosis Reexamination: Patient remained stable. No increased work of breathing. No altered mental status. No focal motor deficits. Assessment and plan: Alcohol intoxication. Dehydration ?Normal saline bolus - Discharged home - Discussed findings and plan with patient. Answered any questions. - All laboratory values were reviewed and interpreted personally by myself, the ER physician - All imaging was reviewed and interpreted personally by myself, the ER physician. - Evaluation and treatment of this problem were appropriate in the emergency setting Lab Data 02/21/25 06:00 02/21/25 07:28 Radiology Impressions Chest X-Ray 02/21/25 06:20 Impression: Atherosclerosis. Laboratory Results WBC 6.45 10^3/uL (3.29-11.43) 02/21/25 06:00 RBC 4.19 10^6/uL (3.85-5.65) 02/21/25 06:00 Hgb 13.00 g/dL (11.27-16.99) 02/21/25 06:00 Hct 39.7 % (37-53) 02/21/25 06:00 MCV 94.7 fl (82-101) 02/21/25 06:00 MCH 31.0 pg (27-33) 02/21/25 06:00 MCHC 32.7 g/dL (30-55) 02/21/25 06:00 RDW 13.3 % (12.1-15.1) 02/21/25 06:00 Plt Count 408 10^3/cmm (157-399) H 02/21/25 06:00 MPV 9.7 fL (7.4-10.4) 02/21/25 06:00 Neut % (Auto) 50.3 % 02/21/25 06:00 Lymph % (Auto) 34.3 % 02/21/25 06:00 Hill % (Auto) 8.1 % 02/21/25 06:00 Eos % (Auto) 6.0 % 02/21/25 06:00 Baso % (Auto) 1.1 % 02/21/25 06:00 Neut # (Auto) 3.25 10^3/uL (1.8-7.7) 02/21/25 06:00 Lymph # (Auto) 2.2 10^3/uL (0.8-4.8) 02/21/25 06:00 Hill # (Auto) 0.5 10^3/uL (0.2-0.9) 02/21/25 06:00 Eos # (Auto) 0.4 10^3/uL (0.0-0.8) 02/21/25 06:00 Baso # (Auto) 0.1 10^3/uL (0.0-0.1) 02/21/25 06:00 Nucleated RBC % (auto) 0 % 02/21/25 06:00 Nucleated RBCs # 0.0 /100WBC 02/21/25 06:00 Sodium 142 mmol/L (136-145) 02/21/25 07:28 Potassium 3.4 mmol/L (3.5-5.1) L 02/21/25 07:28 Chloride 101 mmol/L (98-107) 02/21/25 07:28 Carbon Dioxide 25 mmol/L (22-29) 02/21/25 07:28 Anion Gap 19.4 (5-19) H 02/21/25 07:28 BUN 12 mg/dL (8-23) 02/21/25 07:28 Creatinine 0.8 mg/dL (0.7-1.2) 02/21/25 07:28 GFR Calculation 97.6 mL/min (90-130) 02/21/25 07:28 Glucose 89 mg/dL (65-115) 02/21/25 07:28 Calculated Osmolality 293 mOsm/kg (285-295) 02/21/25 07:28 Lactic Acid 2.4 mmol/L (0.5-2.2) H 02/21/25 06:00 Calcium 9.2 mg/dL (8.5-10.5) 02/21/25 07:28 Total Bilirubin 0.2 mg/dL (0.15-1.2) 02/21/25 07:28 AST 23 U/L (0-40) 02/21/25 07:28 ALT 13 U/L (0-41) 02/21/25 07:28 Alkaline Phosphatase 194 U/L (40-130) H 02/21/25 07:28 Troponin T Baseline 9 ng/L (0-15) 02/21/25 07:27 Troponin T 60 Minute 7.20 ng/L (0-15) 02/21/25 08:17 Delta Troponin T -1.80 ABS# (0-10) L 02/21/25 08:17 Total Protein 6.7 g/dL (6.6-8.7) 02/21/25 07:28 Albumin 3.6 g/dL (3.5-5.2) 02/21/25 07:28 Globulin 3.1 g/dL (1.3-4.6) 02/21/25 07:28 Urine Color Yellow (Yellow) 02/21/25 06:52 Urine Appearance Clear (CLEAR) 02/21/25 06:52 Urine pH 6.5 (5-7) 02/21/25 06:52 Ur Specific Bryant 1.003 (1.005-1.030) L 02/21/25 06:52 Urine Protein Negative (Negative) 02/21/25 06:52 Urine Glucose (UA) Negative (Normal) 02/21/25 06:52 Urine Ketones Negative (Negative) 02/21/25 06:52 Urine Blood 2+ (Negative) A 02/21/25 06:52 Urine Nitrate Negative (Negative) 02/21/25 06:52 Urine Bilirubin Negative (Negative) 02/21/25 06:52 Urine Urobilinogen 0.2 mg/dL (Negative) 02/21/25 06:52 Ur Leukocyte Esterase Trace (Negative) A 02/21/25 06:52 Urine RBC 0-2 /hpf (0-2) 02/21/25 06:52 Urine WBC 6-10 /hpf (0-5) 02/21/25 06:52 Ur Squamous Epith Cells 0-5 /hpf (0-5) 02/21/25 06:52 Amorphous Sediment Not Reportable 02/21/25 06:52 Urine Bacteria None seen /hpf (NONE) 02/21/25 06:52 Hyaline Casts 0-4 /lpf H 02/21/25 06:52 Urine Opiates Screen Negative ng/mL (Negative) 02/21/25 06:52 Ur Barbiturates Screen Negative ng/mL (Negative) 02/21/25 06:52 Ur Phencyclidine Scrn Negative ng/mL (Negative) 02/21/25 06:52 Ur Amphetamines Screen Negative ng/mL (Negative) 02/21/25 06:52 U Benzodiazepines Scrn Negative ng/mL (Negative) 02/21/25 06:52 Urine Cocaine Screen Negative ng/mL (Negative) 02/21/25 06:52 U Marijuana (THC) Screen Negative ng/mL (Negative) 02/21/25 06:52 Ethyl Alcohol 191 mg/dL (0-10) H 02/21/25 07:28 Serum Ketones Negative (Negative) 02/21/25 07:28 Influenza A (PCR) Negative (Negative) 02/21/25 06:32 Influenza Type B (PCR) Negative (Negative) 02/21/25 06:32 RSV (PCR) Negative (Negative) 02/21/25 06:32 SARS-CoV-2 (PCR) Negative (Negative) 02/21/25 06:32 All radiology interpretation(s) finalized by discharge Discharge Plan Discharge Patient Disposition: Home Clinical Impression: Alcohol intoxication, Dehydration Condition: Stable Prescriptions: No Action fexofenadine [Hellen Allergy] 180 mg tablet 180 mg PO DAILY cholecalciferol (vitamin D3) 10 mcg (400 unit) capsule 10 mcg PO DAILY (DME) Dexcom G6 Automatic Toe Laster Misc See Rx Instructions .Route Qty: 1 1RF Rx Instructions: As directed chromium picolinate 1,000 mcg tablet 1,000 mcg PO DAILY lutein 6 mg capsule 6 mg PO DAILY Rx Instructions: give with meal/snack aspirin [Adult Aspirin Regimen] 81 mg tablet,delayed release (DR/EC) 81 mg PO DAILY PRN (Reason: Pain) latanoprost 0.005 % drops 1 drp ophthalmic (eye) DAILY (DME) Ketone Urine Test Strip See Rx Instructions .Route Qty: 100 0RF Rx Instructions: As directed (DME) Diabetic shoes with 3 inserts See Rx Instructions .ROUTE .MEDSUPPLY Qty: 1 0RF Rx Instructions: As directed ascorbate calcium (vitamin C) 500 mg tablet 500 mg PO DAILY 90 Days Qty: 90 0RF (DME) pen needle, diabetic [TechLITE Pen Needle] 32 gauge x 5/32 needle See Rx Instructions .ROUTE .COMPLEX Qty: 400 0RF Dose Instruction: USE DIRECTED Rx Instructions: USE DIRECTED insulin lispro 100 unit/mL insulin pen See Rx Instructions .ROUTE .COMPLEX Qty: 90 1RF Dose Instruction: ADMINISTER 30 UNITS UNDER THE SKIN THREE TIMES DAILY BEFORE MEALS Rx Instructions: ADMINISTER 18 UNITS before breakfast and 25 units before lunch and dinner. zolpidem 10 mg tablet 10 mg PO DAILY Qty: 30 5RF Glucagon Emergency Kit (human) 1 mg recon soln 1 mg SUBCUT Q20M PRN (Reason: hypoglycemia) Qty: 1 11RF Rx Instructions: until target blood sugar attained atorvastatin 20 mg tablet See Rx Instructions .ROUTE .COMPLEX Qty: 90 3RF Dose Instruction: TAKE 1 TABLET BY MOUTH DAILY Rx Instructions: TAKE 1 TABLET BY MOUTH DAILY (DME) Dexcom G6 Sensor Device See Rx Instructions .ROUTE .COMPLEX Qty: 9 1RF Dose Instruction: APPLY 1 SENSOR EVERY 10 DAYS DIRECTED Rx Instructions: APPLY 1 SENSOR EVERY 10 DAYS DIRECTED ([facility] [place]) Dexcom G6 Transmitter Device See Rx Instructions .ROUTE .COMPLEX Qty: 1 0RF Dose Instruction: USE DIRECTED TO CHECK BLOOD GLUCOSE Rx Instructions: USE DIRECTED TO CHECK BLOOD GLUCOSE meloxicam 15 mg tablet 15 mg PO DAILY Qty: 30 5RF insulin glargine [Lantus Solostar U-100 Insulin] 100 unit/mL (3 mL) insulin pen 70 unit SUBCUT DAILY furosemide 40 mg tablet 40 mg PO DAILY sertraline 100 mg tablet 150 mg PO DAILY metoprolol tartrate 50 mg tablet 50 mg PO BID levothyroxine 200 mcg tablet 200 mcg PO DAILY Santyl 250 unit/gram ointment 1 applic topical DAILY PRN (Reason: open wound) Rx Instructions: apply nickel thick to wound once daily. fluticasone propionate 50 mcg/actuation spray,suspension 2 spray intranasal DAILY thiamine mononitrate (vit B1) [Vitamin B-1 (mononitrate)] 100 mg Tablet 100 mg PO DAILY Qty: 30 0RF multivitamin with folic acid [Thera] 400 mcg Tablet 1 tab PO DAILY Qty: 30 0RF Discharge Orders: Discharge ED (Routine); Ordered 02/21/25 Ordered By: Indiana Jack Referrals: Harrison Hill MD [Primary Care Provider, Family Practice] Discharge Diet: Usual diet Discharge Activity: Increase activity as tolerated Patient Instructions: Alcohol Intoxication (ED), Opioid Safety, Pain Management, Patient Portal & Carlos Alberto Instructions Activity Restrictions/Additional Instructions: Thank you for choosing [facility] for your healthcare needs today. You have been screened and evaluated and felt safe for discharge. Health conditions do change or evolve sometimes and as such it is important that you follow up with your Primary Doctor to be re checked, 3-5 days is a general good time frame for follow up. You are always welcome to return to the ED for re assessment if your symptoms are worsening or you have new concerns. (Please note that included in your discharge packet is information concerning opioid safety and pain management. This information is given to all patients who are discharged from the ER regardless of their discharge diagnosis or the medicines they usually take or are prescribed.) Print Language: Slovenian Coding Level of Care Code ED Crop Or Livestock Tenant Farmer for Yenifer Levy
[2025-02-21 06:30] LABS: Hematocrit 39.7 % (37-53); Hemoglobin 13.00 g/dL (11.27-16.99); Mean Corpuscular HGB Conc 32.7 g/dL (30-55); Mean Corpuscular Hemoglobin 31.0 pg (27-33); Mean Corpuscular Volume 94.7 fl (82-101); Nucleated Red Blood Cells % 0 %; Platelet Count 408 10^3/cmm (157-399); Red Blood Count 4.19 10^6/uL (3.85-5.65); White Blood Count 6.45 10^3/uL (3.29-11.43)
[2025-02-21 06:34] VITALS: BP 146/81; PULSE 81; O2SAT 99
[2025-02-21 06:50] LABS: Lactic Sepsis W/Reflex 2.4 mmol/L (0.5-2.2)
[2025-02-21 07:19] LABS: PCP Screen Urine Negative (Negative)
--- NOTE | 2025-02-21 07:21 | ECG_ITS ---
[facility] Test Date: 2025-02-21 Pat Name: Case Morin Department: Room: Gender: Male Metalsmith: : 1960 Requested By: Indiana Wilson Order Number: [id number] Isabelle MD: GRADY BELTRAN Measurements Intervals [place] Rate: 70 P: 52 NV: 225 QRS: 11 QRSD: 90 T: 37 QT: 414 QTc: 447 Interpretive Statements SINUS RHYTHM WITH FIRST DEGREE AV BLOCK LOW QRS VOLTAGE IN PRECORDIAL LEADS [QRS DEFLECTION < 1.0 mV IN CHEST LEADS] Compared to ECG 02/21/2025 06:26:31 Low QRS voltage now present Electronically Signed On 02-21-2025 20:35:27 GARDE MANAGER by GRADY BELTRAN [email or web address]
[2025-02-21 07:37] LABS: Glucose Urine UA Negative (Normal); Nitrate Urine Negative (Negative); Specific Gravity, Urine 1.003 (1.005-1.030)
[2025-02-21 07:37] LABS: Respiratory Syncytial Virus Ce NEGATIVE (Negative); SARS-CoV-2 PCR NEGATIVE (Negative)
[2025-02-21 07:55] LABS: Ketone (Acetest) Serum Negative (Negative)
[2025-02-21 08:03] LABS: Troponin(5th) Baseline 9 ng/L (0-15)
[2025-02-21 08:07] LABS: Alanine Aminotransferase 13 U/L (0-41); Albumin Level 3.6 g/dL (3.5-5.2); Alcohol Level 191 mg/dL (0-10); Alkaline Phosphatase 194 U/L (40-130); Anion Gap 19.4 (5-19); Aspartate Amino Transferase 23 U/L (0-40); Blood Urea Nitrogen 12 mg/dL (8-23); Calcium 9.2 mg/dL (8.5-10.5); Carbon Dioxide 25 mmol/L (22-29); Chloride 101 mmol/L (98-107); Globulin 3.1 g/dL (1.3-4.6); Glucose 89 mg/dL (65-115); Osmolality Calculated 293 mOsm/kg (285-295); Potassium 3.4 mmol/L (3.5-5.1); Sodium 142 mmol/L (136-145); Total Protein 6.7 g/dL (6.6-8.7)
[2025-02-21 08:15] LABS: Reflex Lactate Order REFLEX LACTIC ORDERD
--- NOTE | 2025-02-21 08:59 | PC.NURSE ---
pt discharge delayed d/t provider ordering fluids at same time of d/c
[2025-02-21 09:00] VITALS: BP 129/84; PULSE 87; O2SAT 92
[2025-02-21 10:07] VITALS: BP 160/85; PULSE 74; O2SAT 98
== END 2025-02-21 10:24 | disposition home or self-care (01) ==
PROVIDERS: Emergency Provider Emergency Medicine; PCP Family Medicine
DX: F10.129 Alcohol abuse with intoxication, unspecified (principal); Y90.6 Blood alcohol level of 120-199 mg/100 ml; E86.0 Dehydration; Z79.82 Long term (current) use of aspirin; Z11.52 Encounter for screening for COVID-19; E10.9 Type 1 diabetes mellitus without complications; I10 Essential (primary) hypertension
CPT/HCPCS: 36415; 71045; 80053; 80306; 80307; 81001; 82009; 83605; 84484; 85025; 87040; 87637; 93005; 96360; 99285; J7030